=== PATIENT | female | born 1970 | race Caucasian/White ===

== ENCOUNTER → 2018-01-31 08:53 | Outpatient (CLI) | payer MEDICARE, MEDICAID, SELFPAY ==
[2018-01-31 10:39] LABS: Hematocrit 42.9 % (37-47); Hemoglobin 14.7 g/dl (12.0-15.0); Mean Corp Hgb Conc 34.3 g/gl (32-36); Mean Corpuscular Hgb 32.5 pg (27.0-32.0); Mean Corpuscular Volume 94.9 fL (81-99); Platelet Count 166 K/mm3 (150-450); RBC Distribution Width CV 12.4 % (11.6-14.6); RBC Distribution Width SD 42.5 fl (35.1-43.9); Red Blood Count 4.52 M/mm3 (4.2-5.4); White Blood Count 4.7 K/mm3 (4.4-11.0)
[2018-01-31 10:53] LABS: Scan Indicated on CBC? Y/N NO
[2018-01-31 11:25] LABS: ALB/GLOB Ratio 0.6 RATIO (0.9-2.4); AST(SGOT) 14 U/L (15-37); Alanine Aminotransfer ALT/SGPT 13 U/L (13-56); Albumin, Serum 2.7 g/dL (3.2-5.0); Alkaline Phosphatase 52 U/L (45-117); Anion Gap 5 (5-15); BUN 14 mg/dL (7-18); BUN/Creat Ratio 17.1 RATIO (10-20); Calcium,Total 9.3 mg/dL (8.5-10.1); Chloride 97 mmol/L (98-107); Creatinine, Serum 0.82 mg/dL (0.55-1.02); EST Glomerular Filtration Rate 79 mL/min (>60); Est Glom Filt Rate - Afr Amer 96 mL/min (>60); Globulin 4.2 g/dL (2.2-4.2); Glucose 67 mg/dL (74-106); Potassium 4.6 mmol/L (3.5-5.1); Protein, Total 6.9 g/dL (6.4-8.2); Sodium Level 134 mmol/L (136-145)
[2018-01-31 11:27] LABS: Valproic Acid (Depakene) Level 81 ug/mL (50-100)
[2018-02-02 20:08] LABS: KEPPRA (LEVETIRACETAM) 9.6 ug/mL (10.0-40.0)
[2018-02-03 08:17] LABS: Lamotrigine (Lamictal) Level 14.9 ug/mL (2.0-20.0)
== END ==
PROVIDERS: Family Provider Internal Medicine; PCP Internal Medicine; Visit Provider Psychiatry & Neurology Neurology
DX: R45.1 Restlessness and agitation (principal); G40.919 Epilepsy, unspecified, intractable, without status epilepticus; R25.1 Tremor, unspecified; R27.0 Ataxia, unspecified
CPT/HCPCS: 36415; 80053; 80164; 80177; 82542; 85027

== ENCOUNTER 2018-04-20 11:06 | Emergency (ER) | payer MEDICARE, MEDICAID, SELFPAY ==
[2018-04-20 11:07] VITALS: BP 115/98; PULSE 77; RESP 16; TEMP 36.7; O2SAT 98; BMI 31.4
--- NOTE | 2018-04-20 11:22 | CT_ITS ---
STUDY: CT BRAIN WITHOUT CONTRAST REASON FOR EXAM: Female, 47 years old. Altered mental status with increasing confusion RADIATION DOSAGE (If Supplied By Facility): CTDIvol = ( 44.99 ) mGy, DLP = ( 779.24 ) mGycm TECHNIQUE: Transaxial CT imaging of the brain was performed without administration of intravenous contrast material. Individualized dose optimization techniques were used for this CT. COMPARISON: 09/23/2017 FINDINGS: Normal soft tissue structures. Normal calvarium. Normal size ventricles and extra-axial spaces for the patient's age. Normal white matter tracts of the cerebral hemispheres. Normal basal ganglia and thalami. Normal brainstem. Normal cerebellum. Again noted is a 5 mm rounded hyperdensity consistent with a colloid cyst seen in the superior aspect of the third ventricle. There is no intracranial hemorrhage. There are no findings of an acute ischemic infarction. Normal visualized paranasal sinuses. CT/Brain/Head without Contrast IMPRESSION: No acute intracranial pathology. 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 Electronically Signed: Jose Polanco DO at 12:13 EDT Tel , Service support ,
--- NOTE | 2018-04-20 11:25 | RAD_ITS ---
STUDY: X-RAY CHEST REASON FOR EXAM: Female, 47 years old. Shortness of breath/dyspnea. TECHNIQUE: Single AP portable view of the chest. COMPARISON: Comparison is made with prior study August 27, 2014. FINDINGS: The lungs are clear and expanded. There is no demonstrated pleural abnormality. Normal size heart. Normal mediastinum and noah. Normal visualized pulmonary arteries. Normal visualized aortic arch and descending thoracic aorta. Normal visualized thoracic spine. Normal visualized ribs, clavicles, and shoulders. There is no demonstrated abnormality of the visualized soft tissue structures of the upper abdomen. RAD/Chest 1 View (Portable) IMPRESSION: Normal x-ray examination of the chest. Electronically Signed: Nacho Tang MD at 12:27 EDT Tel [phone], Service support ,
--- NOTE | 2018-04-20 11:26 | ED.DCSUM_ITS ---
- ER Visit Summary Date of Service: 04/20/18 Chief Complaint: Confusion History of Present Illness: The patient is a 47 F presenting with confusion. [facility] [place] She has a history of mild MR, seizure disorder, bipolar disorder, dementia. Per [facility]itentiary staff she has been confused intermittently over the past week. She has been talking to people who are not there. She has been forgetting if she took her medications or if she ate. Her seizure medication was changed in November per Dr. Lopez her neurologist. Her Keppra was decreased and her Depakote was increased. They were advised to have her evaluated if she started having visual hallucinations. No known trauma. No fever. Patient denies complaints. Physical Examination: Vitals are stable. Patient is afebrile. Alert no acute distress. HEENT exam is unremarkable. Neck is supple. Lungs are clear and equal bilaterally. Heart is regular rate and rhythm. Abdomen is soft nontender nondistended. Extremities are unremarkable. Skin is warm and dry. No focal neurologic deficit. Normal strength and sensation. Alert and oriented at baseline. Remainder of exam is unremarkable. Emergency Department Course and Treatment: CBC is normal except for platelets 142. Chemistry normal except for sodium 131 which is near her baseline, glucose 72. She is tolerated po in the ED. Troponin is negative. Depakote level is 102. Chest x-ray shows no acute process. CT head shows no acute process. Urinalysis unremarkable. She is given her home dose of Ativan in the emergency department. She is resting comfortably. Her caregiver feels she is at her baseline. Discussed with Dr. Lopez her neurologist. He recommends no medication changes at this time but will follow-up in the office. She is advised to return to ED for worsening complaints. Disposition: Discharge home Impression: Intermittent confusion This note was generated with Page365 dictation software. It may contain incorrect words, spelling, and punctuation that were not noted in review of the chart prior to signing ED Disposition - Plan for ED Patient: Chief Complaint: Confusion Referrals: Kym Heard MD [Primary Care Provider] -
[2018-04-20 12:00] LABS: Absolute Lymphocyte Count 1.12 X10^3/ul (0.83-4.51); Absolute Neutrophil Count 3.3 X10^3/uL (2.0-7.7); Basophil# 0.01 X10^3/uL; Basophil% 0.2 % (0-1); Eosinophil# 0.09 X10^3/uL; Eosinophils% 1.7 % (0-5); Hematocrit 39.6 % (37-47); Hemoglobin 14.2 g/dl (12.0-15.0); Lymphocyte # 1.12 X10^3/ul (4.0); Lymphocyte % 21.7 % (19-41); Mean Corp Hgb Conc 35.9 g/gl (32-36); Mean Corpuscular Hgb 33.2 pg (27.0-32.0); Mean Corpuscular Volume 92.5 fL (81-99); Mean Platelet Vol. 8.9 fl (6.2-12.0); Monocyte# 0.59 X10^3/uL; Monocyte% 11.4 % (0-10); Neutrophil # 3.33 X10^3/uL (2.7-7.7); Neutrophil % 64.6 % (47-70); POSITIVE COUNT NO; POSITIVE DIFFERENTIAL NO; POSITIVE MORPHOLOGY NO; Platelet Count 142 K/mm3 (150-450); RBC Distribution Width CV 11.5 % (11.6-14.6); RBC Distribution Width SD 38.3 fl (35.1-43.9); Red Blood Count 4.28 M/mm3 (4.2-5.4); White Blood Count 5.2 K/mm3 (4.4-11.0)
[2018-04-20 12:15] LABS: Anion Gap 10 (5-15); BUN 13 mg/dL (7-18); BUN/Creat Ratio 16.5 RATIO (10-20); Calcium,Total 9.1 mg/dL (8.5-10.1); Chloride 94 mmol/L (98-107); Creatinine, Serum 0.79 mg/dL (0.55-1.02); EST Glomerular Filtration Rate 83 mL/min (>60); Est Glom Filt Rate - Afr Amer 100 mL/min (>60); Estimated Creatinine Clearance 81.53 ml/min; Glucose 72 mg/dL (74-106); Potassium 4.6 mmol/L (3.5-5.1); Sodium Level 131 mmol/L (136-145)
[2018-04-20 12:29] LABS: Valproic Acid (Depakene) Level 102 ug/mL (50-100)
[2018-04-20 12:52] LABS: Bacteria 0 SEEN /hpf (None Seen); Color, Urine Yellow (Yellow); Glucose, Dipstick Normal (Normal); Ketone-Dipstick Negative (Negative); Leukocyte Esterase-Dipstick 25 /ul (Negative); Mucous, Urine 0 SEEN /hpf (<or=2+); Nitrite-Dipstick Negative (Negative); Occult Blood-Urine 250 /ul (Negative); Protein-Dipstick Negative (Negative); Urine Bilirubin Dipstick Negative (Negative); Urine Clarity Clear (Clear); Urine Urobilinogen Normal (Normal); White Blood Cells 0 SEEN /hpf (0-5)
[2018-04-20] MEDS: LORazepam 0.5 MG Tablet 1 MG PO (12:54)
[2018-04-20 13:00] LABS: Red Blood Cells-Urine 10-25 SEEN /hpf (0-5); Squamous Epithelial Cells - UA 0-5 SEEN /hpf (5-10)
--- NOTE | 2018-04-20 14:19 | ED.DEP ---
ED Disposition - Plan for ED Patient: Chief Complaint: Confusion Instructions: ED Confusion Referrals: Kym Heard MD [Primary Care Provider] - Rico Lopez MD [STAFF PHYSICIAN] -
[2018-04-20 14:35] VITALS: BP 158/74; PULSE 76; RESP 14; O2SAT 99
== END 2018-04-20 14:36 | disposition home or self-care (01) ==
LOC: ED 11:44
PROVIDERS: Emergency Provider Emergency Medicine; Family Provider Internal Medicine; PCP Internal Medicine
DX: R41.0 Disorientation, unspecified (principal); F70 Mild intellectual disabilities; G40.909 Epilepsy, unspecified, not intractable, without status epilepticus; F31.9 Bipolar disorder, unspecified; F03.90 Unspecified dementia, unspecified severity, without behavioral disturbance, psychotic disturbance, mood disturbance, and anxiety; K21.9 Gastro-esophageal reflux disease without esophagitis; Z79.899 Other long term (current) drug therapy
CPT/HCPCS: 70450; 71045; 80048; 80164; 81001; 84484; 85025; 99285; A4216

== ENCOUNTER 2018-05-17 12:34 | Emergency (ER) | payer MEDICARE, MEDICAID, SELFPAY ==
[2018-05-17 12:35] VITALS: BP 141/65; PULSE 82; RESP 19; O2SAT 100
[2018-05-17 12:36] VITALS: BP 141/65; PULSE 82; RESP 19; TEMP 36.1; O2SAT 100; BMI 34.7
--- NOTE | 2018-05-17 12:54 | CT_ITS ---
STUDY: CT BRAIN WITHOUT CONTRAST REASON FOR EXAM: Female, 47 years old. Swelling of the right forehead following a fall. RADIATION DOSAGE (If Supplied By Facility): CTDIvol = ( 44.99 ) mGy, DLP = ( 779.24 ) mGycm TECHNIQUE: Transaxial CT imaging of the brain was performed without administration of intravenous contrast material. Individualized dose optimization techniques were used for this CT. COMPARISON: Comparison is made with prior study dated April 20, 2018. FINDINGS: Normal soft tissue structures. There is hyperostosis frontalis internus. There is asymmetry of the ventricles consistent with an anatomic variant. Normal white matter tracts of the cerebral hemispheres. Normal basal ganglia and thalami. Normal brainstem. Normal cerebellum. Stable 5 mm rounded hyperdensity in the roof of the third ventricle anteriorly suggestive of a colloid cyst. This is unchanged. There is no intracranial hemorrhage. There are no findings of an acute ischemic infarction. Normal visualized paranasal sinuses. CT/Brain/Head without Contrast IMPRESSION: Chronic involutional changes of the brain. Stable appearance of the 5 mm colloid cyst in the superior aspect of the third ventricle anteriorly. Electronically Signed: Nacho Tang MD at 13:47 EDT Tel [phone], Service support ,
--- NOTE | 2018-05-17 12:54 | RAD_ITS ---
STUDY: X-RAY - RIGHT HAND REASON FOR EXAM: Female, 47 years old. Pain. Soft tissue swelling. TECHNIQUE: 3 view(s) of the hand. COMPARISON: None. FINDINGS: Normal radiocarpal articulation. Normal distal radioulnar joint. Normal visualized carpal bones. Normal carpal articulations Normal carpometacarpal articulation of the thumb. Normal second through fifth carpometacarpal joints. Nondisplaced oblique fracture at the base of the fourth metacarpal. Normal metacarpophalangeal joint of the thumb. Normal interphalangeal joint of the thumb. Normal proximal and distal phalanges of the thumb. Normal metacarpophalangeal joints of the second through fifth fingers. Normal proximal and distal interphalangeal joints of the second through fifth fingers. Normal phalanges of the second through fifth fingers. Soft tissue swelling. RAD/Hand Min 3 Views IMPRESSION: Nondisplaced oblique fracture at the base of the fourth metacarpal with overlying soft tissue swelling. Electronically Signed: Nacho Tang MD at 13:29 EDT Tel [phone], Service support ,
--- NOTE | 2018-05-17 15:07 | ED.DCSUM_ITS ---
- ER Visit Summary Date of Service: 05/17/18 Chief Complaint: Fall History of Present Illness: The patient is a 47 F with a history of MRDD and bipolar disorder. Patient was at workshop today when she tripped over another person's foot and fell. She has a hematoma to her right eyebrow and is complaining of right hand pain. She reportedly did not lose consciousness. She has otherwise been acting her normal self per staff members. Physical Examination: Vital signs are gross unremarkable. Head and neck examination was a 3 cm diameter hematoma along the right lateral eyebrow. No open lacerations are noted. There is no bony tenderness along the orbital ridge. Pupils are equal. Extraocular movements are intact. C-spine is nontender. Heart is regular rate and rhythm. Lung sounds are clear. Abdomen is soft nontender. Right upper extremity examination reveals mild tenderness throughout the right hand without obvious bony deformity. Normal sensation and cap refill is noted. Test Results: CT scan of the head shows chronic involutional changes. Stable colloid cyst is noted. Right hand x-rays reveal nondisplaced oblique fracture at the base of the fourth metacarpal. Emergency Department Course and Treatment: Test results were discussed with patient and staff member at bedside. Right hand is placed in an ulnar gutter splint. She will follow-up with orthopedics. Treatment Plan: [] Disposition: Discharge Impression: 1. Mechanical fall 2. Forehead contusion 3. Right hand fracture This note was generated with [employer] dictation software. It may contain incorrect words, spelling, and punctuation that were not noted in review of the chart prior to signing ED Disposition - Plan for ED Patient: Chief Complaint: Fall Referrals: Kym Heard MD [Primary Care Provider] -
--- NOTE | 2018-05-17 15:07 | ED.DEP ---
ED Disposition - Plan for ED Patient: Disposition: Home or Assisted Living Chief Complaint: Fall Instructions: ED Mechanical Fall, ED Head Injury Closed, ED Fx Hand Closed Referrals: Cruzito Shane MD [STAFF PHYSICIAN] - 5-7 Days
[2018-05-17 15:19] VITALS: BP 140/85; PULSE 77; RESP 16; O2SAT 98
== END 2018-05-17 15:19 | disposition home or self-care (01) ==
PROVIDERS: Emergency Provider Emergency Medicine; Family Provider Internal Medicine; PCP Internal Medicine
DX: S00.83XA Contusion of other part of head, initial encounter (principal); S62.91XA Unspecified fracture of right hand, initial encounter for closed fracture; W18.09XA Striking against other object with subsequent fall, initial encounter; Y93.89 Activity, other specified; Y92.89 Other specified places as the place of occurrence of the external cause; Y99.9 Unspecified external cause status; F31.9 Bipolar disorder, unspecified; F79 Unspecified intellectual disabilities; Z87.891 Personal history of nicotine dependence
CPT/HCPCS: 29125; 70450; 73130; 99281

== ENCOUNTER → 2018-08-01 08:27 | Outpatient (CLI) | payer MEDICARE, MEDICAID, SELFPAY ==
[2018-08-01 09:40] LABS: Valproic Acid (Depakene) Level 73 ug/mL (50-100)
[2018-08-03 20:08] LABS: KEPPRA (LEVETIRACETAM) 11.3 ug/mL (10.0-40.0)
[2018-08-04 08:55] LABS: Lamotrigine (Lamictal) Level 12.1 ug/mL (2.0-20.0)
== END ==
PROVIDERS: Family Provider Internal Medicine; PCP Internal Medicine; Visit Provider Psychiatry & Neurology Neurology
DX: G40.919 Epilepsy, unspecified, intractable, without status epilepticus (principal)
CPT/HCPCS: 36415; 80164; 80177; 82542

== ENCOUNTER → 2018-08-30 07:53 | Outpatient (CLI) | payer MEDICARE, MEDICAID, SELFPAY ==
[2018-08-30 11:09] LABS: Valproic Acid (Depakene) Level 68 ug/mL (50-100)
== END ==
PROVIDERS: Family Provider Internal Medicine; PCP Internal Medicine; Referring Provider Psychiatry & Neurology Neurology; Visit Provider Psychiatry & Neurology Neurology
DX: G40.919 Epilepsy, unspecified, intractable, without status epilepticus (principal)
CPT/HCPCS: 36415; 80164; 80177; 82542

== ENCOUNTER 2018-11-22 15:18 | Emergency (ER) | payer MEDICARE, MEDICAID, SELFPAY ==
[2018-11-22 15:19] VITALS: BP 132/66; PULSE 74; RESP 16; TEMP 36.4; O2SAT 99; BMI 30.7
--- NOTE | 2018-11-22 15:20 | RAD_ITS ---
STUDY: X-RAY - RIGHT ELBOW REASON FOR EXAM: Female, 48 years old. Pain following a fall. TECHNIQUE: 3 view(s) of the elbow. COMPARISON: None. FINDINGS: Normal visualized humerus, radius and ulna. Normal radiocapitellar and ulnotrochlear articulations. The soft tissue structures are unremarkable. RAD/Elbow min 3 Views IMPRESSION: Normal x-ray examination of the elbow. Electronically Signed: Nacho Tang MD at 15:47 EST Tel [phone], Service support ,
--- NOTE | 2018-11-22 15:21 | RAD_ITS ---
STUDY: X-RAY - RIGHT WRIST REASON FOR EXAM: Female, 48 years old. Pain following a fall. TECHNIQUE: 3 view(s) of the wrist were obtained. COMPARISON: None. FINDINGS: Normal visualized distal radius and ulna. Normal radiocarpal articulation. Normal distal radioulnar articulation. Normal carpal bones. Normal carpal articulations. Normal carpometacarpal articulation of the thumb. Normal second through fifth carpometacarpal articulations. Nondisplaced fracture at the base of the fourth metacarpal. There is evidence of healing. The soft tissue structures are unremarkable. RAD/Wrist min 3 Views IMPRESSION: No acute abnormality is seen. Healing fracture at the base of the fourth metacarpal. Electronically Signed: Nacho Tang MD at 15:48 EST Tel [phone], Service support ,
--- NOTE | 2018-11-22 15:21 | RAD_ITS ---
STUDY: X-RAY - RIGHT RADIUS AND ULNA REASON FOR EXAM: Female, 48 years old. Pain following a fall. TECHNIQUE: 2 view(s) of the forearm. COMPARISON: None. FINDINGS: There is no demonstrated soft tissue swelling. Normal visualized radius. Normal visualized ulna. RAD/Forearm 2 Views IMPRESSION: Normal x-ray examination of the radius and ulna. Electronically Signed: Nacho Tang MD at 15:47 EST Tel [phone], Service support ,
--- NOTE | 2018-11-22 16:09 | ED.DCSUM_ITS ---
- ER Visit Summary Date of Service: 11/22/18 Chief Complaint: Right arm injury History of Present Illness: The patient is a 48 F with a history of MRDD and bipolar disorder. Patient slid off the commode last evening injuring her right forearm. She denies any other injury. She presents to the ED with long-term staff. Physical Examination: Vital signs unremarkable. Patient seen in a hole chair. She is in no acute distress. Head neck examination reveals no sign of trauma. Heart is regular rate and rhythm. No respiratory distress noted. Right upper extremity examination reveals mild soft tissue tenderness throughout the right forearm. There is ecchymosis noted to the proximal forearm. She has full range of motion of all joints. No abrasions or lacerations are noted. She has strong distal pulses. Test Results: Per nursing protocol, right wrist, right forearm, and right elbow x-rays are obtained and reveal no acute fracture. There is a healing fracture of the base of the fourth metacarpal from prior injury. Emergency Department Course and Treatment: Test results are discussed with patient and long-term staff member. Wilberto wrap was applied to the forearm. She be treated with ibuprofen. Treatment Plan: [] Disposition: Discharge Impression: Right forearm contusion This note was generated with Ke[employer]on dictation software. It may contain incorrect words, spelling, and punctuation that were not noted in review of the chart prior to signing ED Disposition - Plan for ED Patient: Chief Complaint: Upper Extremity Injury Referrals: Kym Heard MD [Primary Care Provider] -
--- NOTE | 2018-11-22 16:09 | ED.DEP ---
ED Disposition - Plan for ED Patient: Disposition: Home or Assisted Living Chief Complaint: Upper Extremity Injury Instructions: ED Contusion Upper Ext Prescriptions: Ibuprofen [Ibu] 800 mg PO TID PRN PRN #14 tablet PRN Reason: Pain Referrals: Kym Heard MD [Primary Care Provider] - 1 Week if not improving
[2018-11-22 16:46] VITALS: PULSE 78; PULSE 99; RESP 14; RESP 17; O2SAT 99
[2018-11-22] MEDS: Ibuprofen 600 MG Tablet 800 MG PO (16:59)
== END 2018-11-22 17:02 | disposition home or self-care (01) ==
PROVIDERS: Emergency Provider Emergency Medicine; Family Provider Internal Medicine; PCP Internal Medicine
DX: S50.11XA Contusion of right forearm, initial encounter (principal); W18.11XA Fall from or off toilet without subsequent striking against object, initial encounter; Y93.9 Activity, unspecified; Y92.192 Bathroom in other specified residential institution as the place of occurrence of the external cause; Y99.9 Unspecified external cause status; F31.9 Bipolar disorder, unspecified; F79 Unspecified intellectual disabilities; Z87.891 Personal history of nicotine dependence
CPT/HCPCS: 73080; 73090; 73110; 99283

== ENCOUNTER 2018-12-04 09:44 | Emergency (ER) | payer MEDICARE, MEDICAID, SELFPAY ==
[2018-12-04 09:46] VITALS: BP 101/65; PULSE 74; RESP 16; TEMP 36.6; O2SAT 93; BMI 36.6
[2018-12-04 10:33] LABS: Absolute Lymphocyte Count 0.92 X10^3/ul (0.83-4.51); Absolute Neutrophil Count 2.6 X10^3/uL (2.0-7.7); Basophil# 0.01 X10^3/uL; Basophil% 0.2 % (0-1); Eosinophil# 0.15 X10^3/uL; Eosinophils% 3.4 % (0-5); Hematocrit 42.8 % (37-47); Hemoglobin 14.8 g/dl (12.0-15.0); Lymphocyte # 0.92 X10^3/ul (4.0); Lymphocyte % 20.7 % (19-41); Mean Corp Hgb Conc 34.6 g/gl (32-36); Mean Corpuscular Hgb 32.4 pg (27.0-32.0); Mean Corpuscular Volume 93.7 fL (81-99); Mean Platelet Vol. 8.9 fl (6.2-12.0); Monocyte% 15.7 % (0-10); Neutrophil # 2.64 X10^3/uL (2.7-7.7); Neutrophil % 59.3 % (47-70); Platelet Count 123 K/mm3 (150-450); RBC Distribution Width CV 12.5 % (11.6-14.6); RBC Distribution Width SD 42.1 fl (35.1-43.9); Red Blood Count 4.57 M/mm3 (4.2-5.4); White Blood Count 4.5 K/mm3 (4.4-11.0)
[2018-12-04 10:34] LABS: POSITIVE COUNT NO; POSITIVE DIFFERENTIAL NO; POSITIVE MORPHOLOGY NO
[2018-12-04 10:47] LABS: Anion Gap 7 (5-15); BUN 11 mg/dL (7-18); BUN/Creat Ratio 11.4 RATIO (10-20); Calcium,Total 8.7 mg/dL (8.5-10.1); Chloride 94 mmol/L (98-107); Creatinine, Serum 0.96 mg/dL (0.55-1.02); EST Glomerular Filtration Rate 65 mL/min (>60); Est Glom Filt Rate - Afr Amer 79 mL/min (>60); Estimated Creatinine Clearance 63.79 ml/min; Glucose 95 mg/dL (74-106); Potassium 4.4 mmol/L (3.5-5.1); Sodium Level 129 mmol/L (136-145)
[2018-12-04 10:57] VITALS: RESP 16
[2018-12-04 11:01] VITALS: RESP 16
--- NOTE | 2018-12-04 11:03 | ED.VISSUMM ---
- ER Visit Summary Date of Service: 12/04/18 Chief Complaint: Difficulty standing History of Present Illness: The patient is a [address] Heard and Dr. Lopez. Patient has a history of complex seizures and MR/DD. She was at [facility] this morning. Usually she is able to walk with assistance although they report that her gait is not great. Today if they start her from a wheelchair and she was unable to walk due to weakness. She was lowered to the ground 3 times. She did not fall. No injuries. Nurse reports they brought her into her office and that she seemed unsteady, had increased slurred speech, and was twitching. She had her Keppra increased 2 months ago and Depakote was increased 2 months ago as well. I am unable to obtain any useful history from the patient. Physical Examination: Vitals: Stable. Afebrile. General: Well-nourished and well-developed. Head: Normocephalic atraumatic. Neck: Supple, no lymphadenopathy. No JVD. Nontender. Cardiovascular: Regular rate and rhythm. No murmurs. Respiratory: No respiratory distress. Clear to auscultation bilaterally. Abdominal: Soft, nontender, nondistended, normal bowel sounds. No guarding, rebound, or peritoneal signs. Back: Nontender. Extremities: Nontender, no edema. Skin: Normal color, no rash. Neurologic: Alert. Moves all extremities well. Psych: Normal affect. Test Results: CBC is remarkable for platelets of 123 and monocytes of 16. Chem-7 is more for sodium 129 chloride of 94. Depakote level is 112. Emergency Department Course and Treatment: Patient is resting comfortably and in no distress. Treatment Plan: The patient was discussed with Dr. Lopez. He asked that we decrease her Depakote from 625 mg 4 times a day to 500 mg 4 times a day. She has an appointment to see him in a week. They are instructed to keep this. Follow-up Dr. Heard in 1-2 days if not improving. Return to the emergency department for any worsening symptoms. Disposition: To home in improved and stable condition. Impression: 1. Depakote toxicity. This note was generated with [employer] software. It may contain incorrect words, spelling, and punctuation that were not noted in review of the chart prior to signing ED Disposition - Plan for ED Patient: Disposition: Home or Assisted Living Chief Complaint: Overdose Instructions: ED Overdose Accidental Referrals: Rico Lopez MD [STAFF PHYSICIAN] - 1-2 Weeks Additional Instructions: Decrease depakote to 500 mg four times a day.
[2018-12-04 11:12] LABS: Valproic Acid (Depakene) Level 112 ug/mL (50-100)
[2018-12-04 12:11] VITALS: RESP 16
[2018-12-04 12:19] LABS: Mucous, Urine 0 SEEN /hpf (<or=2+)
[2018-12-04 12:29] LABS: Color, Urine Yellow (Yellow); Glucose, Dipstick Normal (Normal); Ketone-Dipstick 5 mg/dl (Negative); Leukocyte Esterase-Dipstick 100 /ul (Negative); Nitrite-Dipstick Negative (Negative); Occult Blood-Urine Negative /ul (Negative); Protein-Dipstick Negative (Negative); Urine Bilirubin Dipstick Negative (Negative); Urine Clarity Sl. Cloudy (Clear); Urine Urobilinogen 1 mg/dl (Normal)
[2018-12-04 12:43] LABS: Bacteria RARE /hpf (None Seen); Red Blood Cells-Urine 0-5 SEEN /hpf (0-5); Squamous Epithelial Cells - UA 0-5 SEEN /hpf (5-10); White Blood Cells 0-5 SEEN /hpf (0-5)
--- NOTE | 2018-12-04 12:56 | NURSING ---
PAGED DR HOUGH FOR DR HUMPHRIES
[2018-12-04 13:06] VITALS: RESP 16
--- NOTE | 2018-12-04 13:38 | ED.RN ---
DR HOUGH PAGED AGAIN.
== END 2018-12-04 14:11 | disposition home or self-care (01) ==
PROVIDERS: Emergency Provider Emergency Medicine; Family Provider Internal Medicine; PCP Internal Medicine
DX: R47.81 Slurred speech (principal); T42.6X5A Adverse effect of other antiepileptic and sedative-hypnotic drugs, initial encounter; Y92.199 Unspecified place in other specified residential institution as the place of occurrence of the external cause; K21.9 Gastro-esophageal reflux disease without esophagitis; G40.209 Localization-related (focal) (partial) symptomatic epilepsy and epileptic syndromes with complex partial seizures, not intractable, without status epilepticus; F79 Unspecified intellectual disabilities
CPT/HCPCS: 80048; 80164; 81001; 85025; 99285; A4216

== ENCOUNTER → 2018-12-18 08:27 | Outpatient (CLI) | payer MEDICARE, MEDICAID, SELFPAY ==
[2018-12-04 09:46] VITALS: BMI 36.6
[2018-12-18 11:37] LABS: Valproic Acid (Depakene) Level 64 ug/mL (50-100)
[2018-12-21 11:10] LABS: KEPPRA (LEVETIRACETAM) 6.8 ug/mL (10.0-40.0); Lamotrigine (Lamictal) Level 14.4 ug/mL (2.0-20.0)
== END ==
PROVIDERS: Family Provider Internal Medicine; PCP Internal Medicine; Referring Provider Psychiatry & Neurology Neurology; Visit Provider Psychiatry & Neurology Neurology
DX: G40.919 Epilepsy, unspecified, intractable, without status epilepticus (principal); R27.0 Ataxia, unspecified
CPT/HCPCS: 36415; 80164; 80177; 82542

== ENCOUNTER → 2019-01-12 08:26 | Outpatient (CLI) | payer MEDICARE, MEDICAID, SELFPAY ==
[2019-01-12 10:19] LABS: Valproic Acid (Depakene) Level 68 ug/mL (50-100)
[2019-01-17 12:24] LABS: Lamotrigine (Lamictal) Level 11.7 ug/mL (2.0-20.0)
== END ==
PROVIDERS: Family Provider Internal Medicine; PCP Internal Medicine
DX: G40.919 Epilepsy, unspecified, intractable, without status epilepticus (principal)
CPT/HCPCS: 36415; 80164; 80177; 82542

== ENCOUNTER → 2019-08-02 08:22 | Outpatient (CLI) | payer MEDICARE, MEDICAID, SELFPAY ==
[2019-08-02 10:43] LABS: Valproic Acid (Depakene) Level 61 ug/mL (50-100)
[2019-08-07 11:10] LABS: KEPPRA (LEVETIRACETAM) 38.8 ug/mL (10.0-40.0); Lamotrigine (Lamictal) Level 12.1 ug/mL (2.0-20.0)
== END ==
PROVIDERS: Family Provider Internal Medicine; PCP Internal Medicine
DX: G40.919 Epilepsy, unspecified, intractable, without status epilepticus (principal)
CPT/HCPCS: 36415; 80164; 80177; 82542

== ENCOUNTER 2019-08-03 19:22 | Emergency (ER) | payer MEDICARE, MEDICAID, SELFPAY ==
[2019-08-03 19:22] VITALS: BP 166/102; PULSE 80; RESP 16; TEMP 36.8; O2SAT 96; BMI 28.9
--- NOTE | 2019-08-03 19:31 | RAD_ITS ---
STUDY: X-RAY - LEFT HUMERUS REASON FOR EXAM: Female, 49 years old. Fall. TECHNIQUE: 2 view(s) of the humerus. COMPARISON: None. FINDINGS: Normal visualized humerus. There is no demonstrated fracture or osseous destructive process. There is no demonstrated soft tissue abnormality. RAD/Humerus min 2 Views IMPRESSION: Normal x-ray examination of the humerus. Electronically Signed: Cathie Eller MD at 21:19 EDT Tel , Service support ,
--- NOTE | 2019-08-03 19:31 | RAD_ITS ---
STUDY: X-RAY - LEFT ANKLE REASON FOR EXAM: Female, 49 years old. Fall. TECHNIQUE: 3 view(s) of the ankle. COMPARISON: None. FINDINGS: Normal visualized distal tibia and fibula. Normal medial and lateral malleoli. Normal tibiotalar articulation and ankle mortise. Normal visualized talus and calcaneus. There are postsurgical changes within the midfoot. The soft tissue structures are unremarkable. RAD/Ankle min 3 Views IMPRESSION: No acute osseous injury. Electronically Signed: Cathie Eller MD at 20:31 EDT Tel , Service support ,
--- NOTE | 2019-08-03 19:31 | RAD_ITS ---
STUDY: X-RAY - PELVIS REASON FOR EXAM: Female, 49 years old. Fall yesterday. TECHNIQUE: One view of the pelvis was obtained. COMPARISON: None. FINDINGS: There is a non-specific bowel gas pattern. Normal visualized soft tissue structures. Normal bilateral iliac wings, sacroiliac joints and visualized sacrum. Normal visualized bilateral superior and inferior pubic rami. Normal pubic symphysis. Normal ischial tuberosities. Normal visualized right femoral head. Normal right acetabulum. Normal right hip joint. Normal visualized left femoral head. Normal left acetabulum. Normal left hip joint. RAD/Pelvis 1 or 2 Views IMPRESSION: No acute osseous injury. Electronically Signed: Cathie Eller MD at 20:37 EDT Tel , Service support ,
--- NOTE | 2019-08-03 19:31 | RAD_ITS ---
STUDY: X-RAY CHEST REASON FOR EXAM: Female, 49 years old. Fall yesterday. TECHNIQUE: PA and lateral views of the chest. COMPARISON: April 20, 2018 FINDINGS: There is no new focal consolidation. Normal size heart. Normal mediastinum and noah. Normal visualized pulmonary arteries. Normal visualized aortic arch and descending thoracic aorta. Normal visualized thoracic spine. Normal visualized ribs, clavicles, and shoulders. There is no demonstrated abnormality of the visualized soft tissue structures of the upper abdomen. RAD/Chest PA and Lateral IMPRESSION: No acute cardiopulmonary process. Electronically Signed: Cathie Eller MD at 20:32 EDT Tel , Service support ,
--- NOTE | 2019-08-03 20:22 | ED.DCSUM_ITS ---
- ER Visit Summary Date of Service: 08/03/19 Chief Complaint: Fall [] History of Present Illness: The patient is a 49 F [presents to the emergency department after sustaining a fall this evening in the shower. Patient apparently just dropped to the ground and was found on her left side. Patient has history of frequent seizures that present typically like this. Patient had no loss of consciousness and responded and was alert immediately as staff try to talk to her. She has a history of MR and she is bipolar and has history of seizure disorder. Patient has been compliant with her medications. Patient complained of some pain to her left side although she is a very poor historian has a hard time localizing. She ambulated into the emergency department.] Physical Examination: [HEENT-PERRLA, EOMI. Cranial nerves II through XII grossly intact. TMs clear. Mucous membranes moist. No adenopathy. No external evidence of trauma to her head. Patient has no C-spine tenderness to palpation. Cardiovascular-regular rate and rhythm without murmur or ectopy Lungs-clear to auscultation, chest wall stable without crepitus or subcu emphysema. Patient does have some tenderness palpation over the left chest wall in the midaxillary line. Abdomen-normoactive bowel sounds, soft, nontender, no rebound or rigidity, no peritoneal signs. Back exam-patient has no tenderness over the thoracic or lumbar spine. Extremities-intact ?4, normal range of motion, normal pulses. Left ankle- patient has some ecchymosis noted over the lateral malleolus. There is some tenderness palpation over the area. Minimal soft tissue swelling. She is neuro vascularly intact distally.] Left upper extremity-patient has some diffuse tenderness over the left shoulder and proximal humerus. No obvious deformity or ecchymosis or bruising noted. Test Results: [X-rays of the left ankle obtained showed no fractures. Chest x- ray showed nothing acute. Patient also had x-rays of the left humerus which showed no fractures. Patient also had x-ray of the pelvis which was unr emarkable.] Emergency Department Course and Treatment: [] Treatment Plan: [Advised on using ibuprofen or Tylenol for discomfort. Patient to follow-up with primary care physician in 5 to 7 days.] Disposition: [Discharged to home stable condition.] Impression: [Recurrent seizure Chest wall contusion Left hip contusion Left ankle contusion] This note was generated with [employer] dictation software. It may contain incorrect words, spelling, and punctuation that were not noted in review of the chart prior to signing ED Disposition - Plan for ED Patient: Referrals: Kym Heard MD [Primary Care Provider] -
--- NOTE | 2019-08-03 20:26 | DCINST.ED_ITS ---
ED Disposition - Plan for ED Patient: Instructions: FALL, Mechanical, Chest Wall Contusion, Hip Contusion, CONTUSION, Lower Extremity Referrals: Kym Heard MD [Primary Care Provider] - 5-7 Days
--- NOTE | 2019-08-03 20:26 | ED.DEP ---
ED Disposition - Plan for ED Patient: Instructions: FALL, Mechanical, Chest Wall Contusion, Hip Contusion, CONTUSION, Lower Extremity Referrals: yKm Heard MD [Primary Care Provider] - 5-7 Days
[2019-08-03 20:45] VITALS: BP 158/94; PULSE 82; RESP 16; O2SAT 97
== END 2019-08-03 20:46 | disposition home or self-care (01) ==
LOC: ED 19:53
PROVIDERS: Emergency Provider Emergency Medicine; Family Provider Internal Medicine; PCP Internal Medicine
DX: S20.219A Contusion of unspecified front wall of thorax, initial encounter (principal); S70.02XA Contusion of left hip, initial encounter; S90.02XA Contusion of left ankle, initial encounter; W18.2XXA Fall in (into) shower or empty bathtub, initial encounter; Y93.9 Activity, unspecified; Y92.002 Bathroom of unspecified non-institutional (private) residence as the place of occurrence of the external cause; Y99.9 Unspecified external cause status; G40.909 Epilepsy, unspecified, not intractable, without status epilepticus; F31.9 Bipolar disorder, unspecified; F79 Unspecified intellectual disabilities
CPT/HCPCS: 71046; 72170; 73060; 73610; 99282

== ENCOUNTER 2019-10-03 14:57 | Emergency (ER) | payer MEDICARE, MEDICAID, SELFPAY ==
[2019-10-03 14:58] VITALS: BP 148/89; PULSE 86; RESP 16; TEMP 36.7; O2SAT 97; BMI 32.8
--- NOTE | 2019-10-03 15:48 | CT_ITS ---
STUDY: CT BRAIN WITHOUT CONTRAST REASON FOR EXAM: Female, 49 years old. Fall, headache RADIATION DOSAGE (If Supplied By Facility): CTDIvol = ( 44.99 ) mGy, DLP = ( 779.24 ) mGycm TECHNIQUE: Transaxial CT imaging of the brain was performed without administration of intravenous contrast material. Individualized dose optimization techniques were used for this CT. COMPARISON: 05/17/2018 FINDINGS: Normal soft tissue structures. Normal calvarium. There is mild cerebral atrophy with widening of the extra-axial spaces and ventricular dilatation. Normal white matter tracts of the cerebral hemispheres. Normal basal ganglia and thalami. Normal brainstem. Normal cerebellum. No change in a 5 mm round mass of increased attenuation within the roof of the third ventricle consistent with a proteinaceous colloid cyst. There is no intracranial hemorrhage. There are no findings of an acute ischemic infarction. Normal visualized paranasal sinuses. CT/Brain/Head without Contrast IMPRESSION: Chronic involutional changes of the brain. Electronically Signed: Juancarlos Iqbal MD at 16:18 EST Tel , Service support ,
--- NOTE | 2019-10-03 15:49 | ED.VISSUMM ---
- ER Visit Summary Date of Service: 10/03/19 Chief Complaint: Facial injury History of Present Illness: The patient is a 49 F who fell today at work striking her head on a filing cabinet. No loss of conscious. No vomiting. Laceration to the right eyebrow noted. Staff cannot tell me last tetanus shot. We called her primary care physician's office last given 2009 Physical Examination: Afebrile vital signs stable Gen: Well-nourished well-developed Head: Normocephalic atraumatic Eyes: Perrl EOMI ENT: TMs clear no rhinorrhea moist mucous membranes Neck: Supple no lymphadenopathy no JVD nontender CVS: Regular rate rhythm no murmurs normal S1-S2 Respiratory: No distress clear to auscultation bilaterally chest nontender Abdomen: Soft nontender nondistended normal bowel sounds no masses Back: Nontender Extremity: Nontender no edema Skin: Normal color no rash Neuro: alert GCS 15 II-XII intact normal strength sensation reflexes gait cerebellar Psych: Normal affect normal mood Test Results: CT of the brain was obtained. This was negative for fracture or intracranial hemorrhage. Emergency Department Course and Treatment: Tetanus was updated with Adacel. Let was applied and then we used approximately 2 cc to anesthetize the region. Wound was washed with Shur-Clens and explored. She was able to wrinkle her brow before and after anesthesia. Wound was closed using a total of 3 simple interrupted 4-0 Ethilon sutures. Patient be discharged home stitches need to be removed 5 to 7 days. Impression: 1. 1.5 cm facial laceration with repair 2. Tetanus update This note was generated with [employer] dictation software. It may contain incorrect words, spelling, and punctuation that were not noted in review of the chart prior to signing ED Disposition - Plan for ED Patient: Disposition: Home or Assisted Living Instructions: LACERATION, Face (Suture or Tape) Referrals: Kym Heard MD [Primary Care Provider] - (in 5-7 days for suture removal)
[2019-10-03] MEDS: Lidocaine/Epi/Tetracaine 50 ML 1 APPLIC TOPICAL (15:56)
[2019-10-03] MEDS: Diphth,Pertuss(Acell),Tet Vac 0.5 ML Vial IM (16:19)
[2019-10-03 16:24] VITALS: PULSE 88; O2SAT 96
== END 2019-10-03 16:51 | disposition home or self-care (01) ==
PROVIDERS: Emergency Provider Emergency Medicine; Family Provider Internal Medicine; PCP Internal Medicine
DX: S01.111A Laceration without foreign body of right eyelid and periocular area, initial encounter (principal); S01.81XA Laceration without foreign body of other part of head, initial encounter; W01.190A Fall on same level from slipping, tripping and stumbling with subsequent striking against furniture, initial encounter; Y93.89 Activity, other specified; Y92.89 Other specified places as the place of occurrence of the external cause; Y99.0 Civilian activity done for income or pay; Z23 Encounter for immunization; G40.909 Epilepsy, unspecified, not intractable, without status epilepticus; F31.9 Bipolar disorder, unspecified; F79 Unspecified intellectual disabilities
CPT/HCPCS: 12011; 70450; 90471; 90715; 99283

== ENCOUNTER 2019-11-02 13:13 | Emergency (ER) | payer MEDICARE, MEDICAID, SELFPAY ==
[2019-11-02 13:14] VITALS: BP 161/109; PULSE 86; RESP 18; TEMP 37; O2SAT 96; BMI 30.9
--- NOTE | 2019-11-02 14:24 | CT_ITS ---
STUDY: CT BRAIN WITHOUT CONTRAST REASON FOR EXAM: Female, 49 years old. Confusion and weakness. Change in mental status. RADIATION DOSAGE (If Supplied By Facility): CTDIvol = ( 44.99 ) mGy, DLP = ( 812.98 ) mGycm TECHNIQUE: Transaxial CT imaging of the brain was performed without administration of intravenous contrast material. Individualized dose optimization techniques were used for this CT. COMPARISON: Comparison is made with prior examination dated October 03, 2019. FINDINGS: Normal soft tissue structures. There is hyperostosis frontalis internus. There is mild cerebral atrophy with widening of the extra-axial spaces and ventricular dilatation. Normal white matter tracts of the cerebral hemispheres. There are small punctate calcifications of the basal ganglia which are seen in the aging brain as a normal variant. Normal brainstem. Normal cerebellum. Stable 5 mm rounded hyperdensity overlying the roof of the third ventricle anteriorly. This is suggestive of right colloid cyst. There is no intracranial hemorrhage. There are no findings of an acute ischemic infarction. Normal visualized paranasal sinuses. CT/Brain/Head without Contrast IMPRESSION: Stable appearance of the colloid cyst. No acute abnormality is seen. Electronically Signed: Nacho Tang, at 15:18 EST , Service support ,
--- NOTE | 2019-11-02 14:42 | ED.DCSUM_ITS ---
History of Present Illness Chief Complaint: Alt LOC Informant: Patient, - - Caregiver Onset: Days Context: Gradual Onset Narrative: Patient is a 49-year-old female with history of developmental delay, dementia, bipolar disorder, epilepsy and hypertension presenting for evaluation of increased weakness decreased appetite. Patient has a history of falls and unsteady gait. They note that she had an unwitnessed fall on Tuesday, 5 days ago. She developed bruising over her left hip, right hernández and right buttocks. Caregivers noted that she has been a little bit more unsteady than normal. She is also complaining of some intermittent dizziness. Patient did have an MRI on Tuesday but she did require sedation for that. They are not sure somewhat medication still lingering in her system. Today she was eating and drinking less. They note she did not eat pizza which is her favorite food. There is been no report of any fevers, vomiting, diarrhea or urinary symptoms. No other complaints or concerns at this time. Past Medical History - Allergies and Home Meds Allergies/Adverse Reactions: Allergies Penicillins Allergy (Verified 11/02/19 13:18) Unknown Primary Care Physician: Kym Heard MD [Primary Care Provider] - Past Medical History: - - MRDD, dementia, bipolar disorder, epilepsy?on Keppra, hypertension Surgical History: noncontributory Lives: - - intermediate Smoking Status: Never smoker - Family History Maternal Family History: Reports: No pertinent history Review of Systems General: Denies: Chills, Fever, Sweats ENT: Denies: Rhinorrhea, Sore throat Cardiovascular: Denies: Chest pain Respiratory: Denies: Dyspnea, Cough Gastrointestinal: Denies: Abdominal pain, Nausea, Vomiting, Diarrhea, Melena, Hematochezia Genitourinary: Denies: Dysuria, Hematuria, Frequency Musculoskeletal: Reports: Extremity Pain - Left knee. Denies: Back pain Skin: Reports: - - Bruising to lower extremities. Denies: Rash, Wounds Neurological: Reports: - - Unsteady gait?chronic. Denies: Headache, Weakness, Numbness Physical Exam Vital Signs/Narrative: Vital Signs Temp Pulse Resp BP Pulse Ox 11/02/19 13:14 98.6 F 86 18 161/109 H 96 Inital Vital Signs reviewed: Yes General: Well nourished, Well developed, No Acute Distress Head: Normocephalic, Atraumatic. Negative for: Tenderness Eyes: Perrl, EOMI ENT: Moist mucous membranes, No rhinorrhea, TM's clear Neck: Supple, Nontender, - - No meningeal signs Cardiovascular: Regular rate, Regular rhythm, No murmurs Respiratory: No distress, CTA bilaterally, Chest nontender Abdomen: Soft, Nondistended, Normal bowel sounds, Tender - Epigastric region. Negative for: Guarding, Rebound tenderness, Mass Back: Nontender, Normal Inspection. Negative for: CVA tenderness Extremities: Nontender, - - Mild edema around associated joint effusion, normal range of motion. No hip pain with logroll bilaterally Skin: Normal color, No rash, - - Scattered ecchymosis on lower extremities, likely from her recent fall Neurological: Alert, Cranial nerves II-XII grossly intact, Normal Strength, Normal Sensation Psychological: Normal affect, Normal Mood Diagnostic/Tx/Re-eval Clinical Impression(s) from Imaging Studies Brain CT 11/02/19 14:24 IMPRESSION: Stable appearance of the colloid cyst. No acute abnormality is seen. Electronically Signed: Nacho Tang, at 15:18 EST , Service support , Knee X-Ray 11/02/19 15:00 IMPRESSION: Normal x-ray examination of the knee. Electronically Signed: Nacho Tang, at 15:19 EST , Service support , Laboratory Data 11/02/19 11/02/19 11/02/19 14:40 14:40 15:23 WBC 4.2 L RBC 4.81 Hgb 15.1 H Hct 44.2 MCV 91.9 MCH 31.4 MCHC 34.2 RDW Std Deviation 40.1 RDW Coeff of Taylor 11.9 Plt Count 111 L MPV 9.0 Immature Gran % (Auto) 0.500 Neut % (Auto) 61.9 Lymph % (Auto) 27.0 [place] % (Auto) 9.0 Eos % (Auto) 1.4 Baso % (Auto) 0.2 Absolute Neuts (auto) 2.6 Absolute Lymphs (auto) 1.14 Nucleated RBC % 0 Sodium 139 Potassium 3.8 Chloride 100 Carbon Dioxide 35.0 H Anion Gap 4 L BUN 12 Creatinine 0.94 Estim Creat Clear Calc 61.83 Est GFR (MDRD) Af Amer 81 Est GFR (MDRD) Non-Af 67 BUN/Creatinine Ratio 12.7 Glucose 90 Calcium 9.1 Total Bilirubin 0.50 Direct Bilirubin 0.16 AST 26 ALT 17 Alkaline Phosphatase 60 Total Protein 7.0 Albumin 2.8 L Globulin 4.2 Lipase 86 Urine Color Yellow Urine Clarity Clear Urine pH 6.5 Ur Specific [place] 1.015 Urine Protein Negative Urine Glucose (UA) Normal Urine Ketones 5 H Urine Occult Blood Negative Urine Nitrite Negative Urine Bilirubin Negative Urine Urobilinogen 4 H Ur Leukocyte Esterase Negative Urine RBC 0 SEEN Urine WBC 0 SEEN Ur Squamous Epith Cells 0-5 SEEN Urine Bacteria 1+ Urine Mucus 0 SEEN - Medical Decision Making Patient evaluated for generalized weakness and increased frequency of falls. She appears nontoxic in no acute distress. Vital signs are significant for hypertension but otherwise normal. She does have a history of hypertension. She does not have any focal neurologic deficits. Because she has unwitnessed fall and has been more weak head CT is obtained. This did not show any acute intracranial process. Urinalysis does show 5+ ketones but no signs of infection. She might have some mild dehydration which is contributing to her weakness. She does not have any significant bony abnormalities. She is also mild swelling of her left knee and an x-ray is obtained. Does not show any acute fracture. Not suspected joint infection. CBC, CMP and lipase are grossly normal. Patient is given some IV fluids and Tylenol emergency room. I think she is stable for outpatient follow-up with PCP. The caregiver that is now the bedside feels that she is pretty much at her baseline. They are counseled on signs and symptoms requiring return to the emergency room. Caregiver verbalizes agreement understanding this plan. Patient discharged home in stable condition. ED Disposition - Plan for ED Patient: Disposition: Home or Assisted Living Diagnosis: Weakness, Dehydration Instructions: WEAKNESS, Unk Cause Referrals: Kym Heard MD [Primary Care Provider] - Additional Instructions: Follow-up with her primary care doctor next week. Encourage extra fluids over the next few days. Give her Tylenol as she is likely sore from her recent fall. Return to emergency with any worsening symptoms. She is not have any signs of kidney injury or infection at this time.
[2019-11-02 14:48] LABS: Absolute Lymphocyte Count 1.14 X10^3/uL (0.83-4.51); Absolute Neutrophil Count 2.6 X10^3/uL (2.0-7.7); Basophil# 0.01 X10^3/uL; Basophil% 0.2 % (0-1); Eosinophil# 0.06 X10^3/uL; Eosinophils% 1.4 % (0-5); Hematocrit 44.2 % (37-47); Hemoglobin 15.1 g/dL (12.0-15.0); Lymphocyte # 1.14 X10^3/ul (4.0); Mean Corp Hgb Conc 34.2 g/dL (32-36); Mean Corpuscular Hgb 31.4 pg (27.0-32.0); Mean Corpuscular Volume 91.9 fL (81-99); Monocyte# 0.38 X10^3/uL; NRBC Flagged by Analyzer 0 % (0-5); Neutrophil # 2.62 X10^3/uL (2.7-7.7); Neutrophil % 61.9 % (47-70); Platelet Count 111 K/mm3 (150-450); RBC Distribution Width CV 11.9 % (11.6-14.6); RBC Distribution Width SD 40.1 fl (35.1-43.9); Red Blood Count 4.81 M/mm3 (4.2-5.4); White Blood Count 4.2 K/mm3 (4.4-11.0)
--- NOTE | 2019-11-02 15:00 | RAD_ITS ---
STUDY: X-RAY - LEFT KNEE REASON FOR EXAM: Female, 49 years old. Left knee pain. TECHNIQUE: AP and lateral view(s) of the knee. COMPARISON: None. FINDINGS: Normal visualized distal femur. Normal visualized proximal tibia and fibula. Normal proximal tibiofibular articulation. Normal medial femorotibial compartment. Normal lateral femorotibial compartment. Normal patellofemoral articulation. The soft tissue structures are unremarkable. RAD/Knee 1 or 2 Views IMPRESSION: Normal x-ray examination of the knee. Electronically Signed: Nacho Tang, at 15:19 EST , Service support ,
[2019-11-02 15:20] LABS: AST(SGOT) 26 U/L (15-37); Alanine Aminotransfer ALT/SGPT 17 U/L (13-56); Albumin, Serum 2.8 g/dL (3.2-5.0); Alkaline Phosphatase 60 U/L (45-117); Anion Gap 4 (5-15); BUN 12 mg/dL (7-18); BUN/Creat Ratio 12.7 RATIO (10-20); Bilirubin, Direct 0.16 mg/dL (0.00-0.30); Calcium,Total 9.1 mg/dL (8.5-10.1); Chloride 100 mmol/L (98-107); Creatinine, Serum 0.94 mg/dL (0.55-1.02); EST Glomerular Filtration Rate 67 mL/min (>60); Est Glom Filt Rate - Afr Amer 81 mL/min (>60); Estimated Creatinine Clearance 61.83 ml/min; Globulin 4.2 g/dL (2.2-4.2); Glucose 90 mg/dL (74-106); Lipase 86 U/L (73-393); Potassium 3.8 mmol/L (3.5-5.1); Sodium Level 139 mmol/L (136-145)
[2019-11-02 15:27] LABS: Mucous, Urine 0 SEEN /hpf (<or=2+); Red Blood Cells-Urine 0 SEEN /hpf (0-5); White Blood Cells 0 SEEN /hpf (0-5)
[2019-11-02 15:30] LABS: Color, Urine Yellow (Yellow); Glucose, Dipstick Normal (Normal); Ketone-Dipstick 5 mg/dl (Negative); Leukocyte Esterase-Dipstick Negative /ul (Negative); Nitrite-Dipstick Negative (Negative); Occult Blood-Urine Negative /ul (Negative); Protein-Dipstick Negative (Negative); Specific Gravity, Urine 1.015 (1.002-1.030); Urine Bilirubin Dipstick Negative (Negative); Urine Clarity Clear (Clear); Urine Urobilinogen 4 mg/dl (Normal); Urine pH 6.5 (5.0 - 8.0)
[2019-11-02 15:44] LABS: Bacteria 1+ /hpf (None Seen); Squamous Epithelial Cells - UA 0-5 SEEN /hpf (5-10)
[2019-11-02] MEDS: Acetaminophen 500 MG Tablet 1000 MG PO (16:26)
[2019-11-02] MEDS: 0.9% Normal Saline 1,000 ML 999 ML IV (16:28)
[2019-11-02 16:29] VITALS: RESP 18
[2019-11-02 18:20] VITALS: RESP 18
== END 2019-11-02 18:29 | disposition home or self-care (01) ==
PROVIDERS: Emergency Provider Emergency Medicine; Family Provider Internal Medicine; PCP Internal Medicine
DX: R53.1 Weakness (principal); E86.0 Dehydration; G40.909 Epilepsy, unspecified, not intractable, without status epilepticus; I10 Essential (primary) hypertension; F31.9 Bipolar disorder, unspecified; F03.90 Unspecified dementia, unspecified severity, without behavioral disturbance, psychotic disturbance, mood disturbance, and anxiety; Z79.899 Other long term (current) drug therapy
CPT/HCPCS: 70450; 73560; 80048; 80076; 81001; 83690; 85025; 96360; 99285; J7030; A4216

== ENCOUNTER 2019-11-24 15:49 | Emergency (ER) | payer MEDICARE, MEDICAID, SELFPAY ==
[2019-11-24 15:51] VITALS: BP 133/82; PULSE 74; RESP 17; TEMP 36; O2SAT 93; BMI 30.7
--- NOTE | 2019-11-24 16:11 | ED.RN ---
PT HAS NUMEROUS AREAS OF ECCHYMOSIS OF VARYING AGES AND SIZES SCATTERED OVER ENTIRE BODY. NOTABLE AREAS INCLUDE RIGHT CHEEK, RIGHT SHOULDER, LEFT LATERAL CHEN, BOTH ANKLES.
--- NOTE | 2019-11-24 16:13 | ED.RN ---
WHEN ALONE IN ROOM AND ASKED ABOUT INJURIES, PT STATES I FALL A LOT. PT DENIES AND OTHER FORM OF INJURY.
--- NOTE | 2019-11-24 16:18 | ED.RN ---
ATTEMPTED TO CALL LEGAL [employer]IAN PETER HARRIS FOR PERMISSION TO TREAT, NO ANSWER, VOICEMAIL STATES MAILBOX IS FULL, UNABLE TO LEAVE MESSAGE.
--- NOTE | 2019-11-24 16:54 | CT_ITS ---
STUDY: CT BRAIN WITHOUT CONTRAST REASON FOR EXAM: Female, 49 years old. FALL X 3 TODAY. SEIZURE DISORDER RADIATION DOSAGE (If Supplied By Facility): CTDIvol = ( 44.99 ) mGy, DLP = ( 829.85 ) mGycm TECHNIQUE: Transaxial CT imaging of the brain was performed without administration of intravenous contrast material. Individualized dose optimization techniques were used for this CT. COMPARISON: 11/02/2019 FINDINGS: Normal soft tissue structures. There is hyperostosis frontalis internus. Mild prominence of the lateral and third ventricles with small hyperdense lesion in the anterior third ventricle measuring 5 mm, compatible with a small colloid cyst. Normal white matter tracts of the cerebral hemispheres. Normal basal ganglia and thalami. Normal brainstem. Normal cerebellum. There is no intracranial hemorrhage. There are no findings of an acute ischemic infarction. Normal visualized paranasal sinuses. CT/Brain/Head without Contrast IMPRESSION: 1. No acute intracranial hemorrhage or mass effect. 2. Stable intraventricular colloid cyst Electronically Signed: Mayo Kolb MD ([place]) at 17:31 EST , Service support ,
--- NOTE | 2019-11-24 16:59 | ED.VIS.GEN ---
History of Present Illness Chief Complaint: Dizziness Detail of Chief Complaint: Fall Informant: - - [facility] staff member Narrative: Patient brought in by staff member from [facility]. They state that 5 days ago she had a fall and had bruising to her right shoulder and the right side of her face. She did well for the next few days but yesterday went to lay in bed all day. She would get up only to go the bathroom and back. She has seemed more unsteady on her feet. She is not wanting to eat. She has had multiple falls today. They have not noted fever. She has not had significant cough or congestion. She has had no vomiting. - Past Medical History (1) Dementia Status: Chronic (2) Seizures Status: Chronic (3) Hypertension Status: Chronic (4) Bipolar disorder Status: Chronic (5) Mental retardation Status: Chronic Past Medical History - Allergies and Home Meds Allergies/Adverse Reactions: Allergies Penicillins Allergy (Verified 11/24/19 15:50) Unknown Primary Care Physician: Kym Heard MD [Primary Care Provider] - Prior records reviewed: Yes Surgical History: noncontributory Lives: - - [facility]entiary Smoking Status: Never smoker - Family History Maternal Family History: Reports: No pertinent history Review of Systems General: Denies: Chills, Fever ENT: Denies: Bilateral ear pain Cardiovascular: Denies: Chest pain Respiratory: Denies: Dyspnea, Cough Gastrointestinal: Denies: Abdominal pain, Vomiting Musculoskeletal: Denies: Neck pain, Back pain Skin: Reports: - - Ecchymoses Neurological: Denies: Headache Allergy: Denies: Uticaria Physical Exam Vital Signs/Narrative: Vital Signs Temp Pulse Resp BP Pulse Ox 11/24/19 15:51 96.8 F L 74 17 133/82 H 93 Inital Vital Signs reviewed: Yes General: Well nourished, Well developed Head: Normocephalic, - - Old ecchymoses noted to the right maxilla. No bony tenderness. ENT: Moist mucous membranes Neck: Supple Cardiovascular: Regular rate, Regular rhythm Respiratory: No distress, CTA bilaterally Abdomen: Soft, Nontender, Normal bowel sounds Extremities: - - Ecchymosis of the top of the right shoulder. No tenderness of the shoulder joint itself. Neurological: Alert, - - Moves all 4 extremities. Diagnostic/Tx/Re-eval Chest X-Ray - ED: 1 View, Read by ED Physician, Chronic Changes, No Infiltrates Impressions Brain CT 11/24/19 16:54 IMPRESSION: 1. No acute intracranial hemorrhage or mass effect. 2. Stable intraventricular colloid cyst Electronically Signed: Mayo Kolb MD ([place]) at 17:31 EST , Service support , Shoulder X-Ray 11/24/19 17:20 IMPRESSION: No acute osseous injury. Right basilar patchy opacity concerning for underlying atelectasis and/or pneumonia. Electronically Signed: Cathie Eller MD at 18:12 EST Tel , Service support , 11/24/19 16:54 Brain/Head without Contrast [CT] Stat 11/24/19 17:20 Shoulder min 2 Views [RAD] Stat 11/24/19 19:00 Chest 1 View (Portable) [RAD] Stat Laboratory Results 11/24/19 11/24/19 11/24/19 17:05 17:05 17:05 WBC 8.4 RBC 4.36 Hgb 13.6 Hct 40.3 MCV 92.4 MCH 31.2 MCHC 33.7 RDW Std Deviation 41.7 RDW Coeff of [place] 12.3 Plt Count 164 MPV 8.8 Immature Gran % (Auto) 0.500 Neut % (Auto) 77.1 H Lymph % (Auto) 15.9 L [place] % (Auto) 5.7 Eos % (Auto) 0.7 Baso % (Auto) 0.1 Absolute Neuts (auto) 6.5 Absolute Lymphs (auto) 1.34 Nucleated RBC % 0 Sodium 139 Potassium 3.0 L Chloride 97 L Carbon Dioxide 38.0 H Anion Gap 4 L BUN 18 Creatinine 1.04 H Estim Creat Clear Calc 60.58 Est GFR (MDRD) Af Amer 72 Est GFR (MDRD) Non-Af 60 BUN/Creatinine Ratio 17.3 Glucose 86 Calcium 9.1 Urine Color Urine Clarity Urine pH Ur Specific [place] Urine Protein Urine Glucose (UA) Urine Ketones Urine Occult Blood Urine Nitrite Urine Bilirubin Urine Urobilinogen Ur Leukocyte Esterase Urine RBC Urine WBC Ur Squamous Epith Cells Urine Bacteria Urine Mucus Valproic Acid 88 11/24/19 17:45 WBC RBC Hgb Hct MCV MCH MCHC RDW Std Deviation RDW Coeff of [place] Plt Count MPV Immature Gran % (Auto) Neut % (Auto) Lymph % (Auto) [place] % (Auto) Eos % (Auto) Baso % (Auto) Absolute Neuts (auto) Absolute Lymphs (auto) Nucleated RBC % Sodium Potassium Chloride Carbon Dioxide Anion Gap BUN Creatinine Estim Creat Clear Calc Est GFR (MDRD) Af Amer Est GFR (MDRD) Non-Af BUN/Creatinine Ratio Glucose Calcium Urine Color Yellow Urine Clarity Clear Urine pH 6.0 Ur Specific [place] 1.015 Urine Protein 15 H Urine Glucose (UA) Normal Urine Ketones 5 H Urine Occult Blood Negative Urine Nitrite Negative Urine Bilirubin 1 H Urine Urobilinogen 4 H Ur Leukocyte Esterase 25 H Urine RBC 0 SEEN Urine WBC 5-10 SEEN Ur Squamous Epith Cells 0-5 SEEN Urine Bacteria 0 SEEN Urine Mucus 0 SEEN Valproic Acid - Medical Decision Making Test results discussed with staff member at bedside. Patient is given oral potassium replacement. Should be written a prescription for oral potassium. Urine was sent for a culture. They were advised to be contacted if she needs antibiotics for this. At this time patient is tolerating p.o. and is in no distress. ED Disposition - Plan for ED Patient: Disposition: Home or Assisted Living Diagnosis: Fall, Hypokalemia Instructions: Hypokalemia, FALL, Uncertain Cause Prescriptions: Potassium Chloride [K-Dur] 20 meq PO BID #7 tablet Referrals: Kym Heard MD [Primary Care Provider] - 1 Week if not improving
[2019-11-24 17:14] LABS: Absolute Lymphocyte Count 1.34 X10^3/uL (0.83-4.51); Absolute Neutrophil Count 6.5 X10^3/uL (2.0-7.7); Basophil# 0.01 X10^3/uL; Basophil% 0.1 % (0-1); Eosinophil# 0.06 X10^3/uL; Eosinophils% 0.7 % (0-5); Hematocrit 40.3 % (37-47); Hemoglobin 13.6 g/dL (12.0-15.0); Lymphocyte # 1.34 X10^3/ul (4.0); Lymphocyte % 15.9 % (19-41); Mean Corp Hgb Conc 33.7 g/dL (32-36); Mean Corpuscular Hgb 31.2 pg (27.0-32.0); Mean Corpuscular Volume 92.4 fL (81-99); Mean Platelet Vol. 8.8 fl (6.2-12.0); Monocyte# 0.48 X10^3/uL; Monocyte% 5.7 % (0-10); NRBC Flagged by Analyzer 0 % (0-5); Neutrophil # 6.48 X10^3/uL (2.7-7.7); Neutrophil % 77.1 % (47-70); Platelet Count 164 K/mm3 (150-450); RBC Distribution Width CV 12.3 % (11.6-14.6); RBC Distribution Width SD 41.7 fl (35.1-43.9); Red Blood Count 4.36 M/mm3 (4.2-5.4); White Blood Count 8.4 K/mm3 (4.4-11.0)
--- NOTE | 2019-11-24 17:20 | RAD_ITS ---
STUDY: X-RAY - RIGHT SHOULDER REASON FOR EXAM: Female, 49 years old. PER [employer] WORKER, PT WITH DIZZINESS AND ALT. LOC SINCE YESTERDAY. FALL EARLIER TODAY. RIGHT SHOULDER PAIN AND BRUISING. TECHNIQUE: 2 view(s) of the shoulder. COMPARISON: Chest radiograph dated August 03, 2019. FINDINGS: Normal glenohumeral articulation. Normal acromioclavicular joint. Normal acromion. Normal humeral head and visualized proximal humerus. The soft tissue structures are unremarkable. There is a right basilar patchy opacity within the visualized lungs. RAD/Shoulder min 2 Views IMPRESSION: No acute osseous injury. Right basilar patchy opacity concerning for underlying atelectasis and/or pneumonia. Electronically Signed: Cathie Eller MD at 18:12 EST Tel , Service support ,
[2019-11-24 17:26] LABS: Anion Gap 4 (5-15); BUN 18 mg/dL (7-18); BUN/Creat Ratio 17.3 RATIO (10-20); Calcium,Total 9.1 mg/dL (8.5-10.1); Chloride 97 mmol/L (98-107); Creatinine, Serum 1.04 mg/dL (0.55-1.02); EST Glomerular Filtration Rate 60 mL/min (>60); Est Glom Filt Rate - Afr Amer 72 mL/min (>60); Estimated Creatinine Clearance 60.58 ml/min; Glucose 86 mg/dL (74-106); Sodium Level 139 mmol/L (136-145)
[2019-11-24 17:48] LABS: Valproic Acid (Depakene) Level 88 ug/mL (50-100)
[2019-11-24 17:50] LABS: Bacteria 0 SEEN /hpf (None Seen); Mucous, Urine 0 SEEN /hpf (<or=2+); Red Blood Cells-Urine 0 SEEN /hpf (0-5)
[2019-11-24 17:56] LABS: Color, Urine Yellow (Yellow); Glucose, Dipstick Normal (Normal); Ketone-Dipstick 5 mg/dl (Negative); Leukocyte Esterase-Dipstick 25 /ul (Negative); Nitrite-Dipstick Negative (Negative); Occult Blood-Urine Negative /ul (Negative); Protein-Dipstick 15 mg/dl (Negative); Specific Gravity, Urine 1.015 (1.002-1.030); Urine Clarity Clear (Clear); Urine Urobilinogen 4 mg/dl (Normal)
[2019-11-24 17:58] LABS: Urine Bilirubin Dipstick 1 mg/dL (Negative)
[2019-11-24 18:06] LABS: White Blood Cells 5-10 SEEN /hpf (0-5)
[2019-11-24 18:07] LABS: Squamous Epithelial Cells - UA 0-5 SEEN /hpf (5-10)
[2019-11-24 18:51] VITALS: PULSE 82; RESP 18; O2SAT 96
--- NOTE | 2019-11-24 19:00 | RAD_ITS ---
STUDY: X-RAY CHEST REASON FOR EXAM: Female, 49 years old. Sob TECHNIQUE: Single frontal view of the chest. COMPARISON: August 03, 2019 FINDINGS: There is an ill-defined right basilar opacity. The patient rotated to the right. Normal size heart. Normal mediastinum and noah. Normal visualized pulmonary arteries. Normal visualized aortic arch and descending thoracic aorta. Normal visualized thoracic spine. Normal visualized ribs, clavicles, and shoulders. There is no demonstrated abnormality of the visualized soft tissue structures of the upper abdomen. RAD/Chest 1 View (Portable) IMPRESSION: Right basilar patchy opacity may be secondary to underlying atelectasis and/or evolving pneumonia. Electronically Signed: Cathie Eller MD at 19:27 EST Tel , Service support ,
[2019-11-24 19:42] VITALS: BP 128/72; PULSE 71; RESP 16; O2SAT 97
[2019-11-28 17:57] LABS: Lamotrigine (Lamictal) Level 14.2 ug/mL (2.0-20.0)
== END 2019-11-24 19:43 | disposition home or self-care (01) ==
PROVIDERS: Emergency Provider Emergency Medicine; Family Provider Internal Medicine; PCP Internal Medicine
DX: E87.6 Hypokalemia (principal); S40.011A Contusion of right shoulder, initial encounter; R29.6 Repeated falls; W18.39XA Other fall on same level, initial encounter; Y93.9 Activity, unspecified; Y92.199 Unspecified place in other specified residential institution as the place of occurrence of the external cause; Y99.9 Unspecified external cause status; F03.90 Unspecified dementia, unspecified severity, without behavioral disturbance, psychotic disturbance, mood disturbance, and anxiety; F31.9 Bipolar disorder, unspecified; F79 Unspecified intellectual disabilities; G40.909 Epilepsy, unspecified, not intractable, without status epilepticus; I10 Essential (primary) hypertension; Z88.0 Allergy status to penicillin; R26.81 Unsteadiness on feet; Z79.899 Other long term (current) drug therapy
CPT/HCPCS: 70450; 71045; 73030; 80048; 80164; 81001; 82542; 85025; 87086; 99284; A4216

== ENCOUNTER → 2020-08-05 08:34 | Outpatient (CLI) | payer MEDICARE, MEDICAID, SELFPAY ==
[2020-08-05 10:26] LABS: Valproic Acid (Depakene) Level 83 ug/mL (50-100)
[2020-08-08 08:38] LABS: KEPPRA (LEVETIRACETAM) 49.2 ug/mL (10.0-40.0); Lamotrigine (Lamictal) Level 10.7 ug/mL (2.0-20.0)
== END ==
PROVIDERS: PCP Internal Medicine
DX: G40.919 Epilepsy, unspecified, intractable, without status epilepticus (principal)
CPT/HCPCS: 80164; 80177; 82542

== ENCOUNTER → 2020-08-15 10:49 | Outpatient (CLI) | payer MEDICARE, MEDICAID, SELFPAY ==
[2020-08-15 11:09] LABS: Absolute Lymphocyte Count 1.41 X10^3/uL (0.83-4.51); Basophil# 0.01 X10^3/uL; Basophil% 0.2 % (0-1); Eosinophils% 1.9 % (0-5); Hematocrit 39.5 % (37-47); Hemoglobin 13.6 g/dL (12.0-15.0); Lymphocyte # 1.41 X10^3/ul (4.0); Lymphocyte % 27.2 % (19-41); Mean Corp Hgb Conc 34.4 g/dL (32-36); Mean Corpuscular Hgb 30.9 pg (27.0-32.0); Mean Corpuscular Volume 89.8 fL (81-99); Mean Platelet Vol. 9.4 fl (6.2-12.0); Monocyte% 11.6 % (0-10); NRBC Flagged by Analyzer 0 % (0-5); Neutrophil # 3.03 X10^3/uL (2.7-7.7); Neutrophil % 58.5 % (47-70); Platelet Count 269 K/mm3 (150-450); RBC Distribution Width CV 12.7 % (11.6-14.6); RBC Distribution Width SD 42.4 fl (35.1-43.9); White Blood Count 5.2 K/mm3 (4.4-11.0)
[2020-08-15 11:33] LABS: Valproic Acid (Depakene) Level 72 ug/mL (50-100)
[2020-08-15 11:39] LABS: ALB/GLOB Ratio 0.7 RATIO (0.9-2.4); AST(SGOT) 16 U/L (15-37); Alanine Aminotransfer ALT/SGPT 16 U/L (13-56); Albumin, Serum 2.4 g/dL (3.2-5.0); Alkaline Phosphatase 54 U/L (45-117); Anion Gap 7 (5-15); BUN 10 mg/dL (7-18); BUN/Creat Ratio 12.3 RATIO (10-20); Calcium,Total 8.5 mg/dL (8.5-10.1); Chloride 97 mmol/L (98-107); Creatinine, Serum 0.81 mg/dL (0.55-1.02); EST Glomerular Filtration Rate 79 mL/min (>60); Est Glom Filt Rate - Afr Amer 96 mL/min (>60); Globulin 3.5 g/dL (2.2-4.2); Glucose 80 mg/dL (74-106); Potassium 3.9 mmol/L (3.5-5.1); Protein, Total 5.9 g/dL (6.4-8.2); Sodium Level 134 mmol/L (136-145)
[2020-08-18 15:26] LABS: KEPPRA (LEVETIRACETAM) 54.8 ug/mL (10.0-40.0); Lamotrigine (Lamictal) Level 10.4 ug/mL (2.0-20.0)
== END ==
PROVIDERS: PCP Internal Medicine; Referring Provider Psychiatry & Neurology Child & Adolescent Psychiatry; Visit Provider Psychiatry & Neurology Child & Adolescent Psychiatry
DX: Z79.899 Other long term (current) drug therapy (principal)
CPT/HCPCS: 80053; 80164; 80177; 82542; 85025

== ENCOUNTER 2020-09-08 15:54 | Emergency (ER) | payer MEDICARE, MEDICAID, SELFPAY ==
[2020-09-08] VITALS (11 sets, daily range): BP systolic 140–192; BP diastolic 68–96; PULSE 68–90; RESP 12–20; TEMP 36.3–36.4; O2SAT 96–100; BMI 31.9
--- NOTE | 2020-09-08 15:53 | CT_ITS ---
We are attempting to reach an attending provider to discuss findings. An addendum with communication details will be sent when the communication is complete. STUDY: CTA HEAD AND NECK WITH CONTRAST REASON FOR EXAM: Female, 50 years old. facial droop RADIATION DOSAGE (If Supplied By Facility): CTDIvol = ( 23.69 ) mGy, DLP = ( 708.56 ) mGycm TECHNIQUE: CT angiography was performed with a multi-detector CT scanner. Data acquisition was obtained from the skull base through the vertex following intravenous administration of 100 ml of isovue 370. MIP images were reconstructed from the axial data set. Post-processing of the angiographic images was performed, with multiplanar reformation and 3D reconstruction. Individualized dose optimization techniques were used for this CT. COMPARISON: No relevant priors. FINDINGS: Normal bilateral petrous carotid arteries. Normal right cavernous carotid artery with a normal supraclinoid bifurcation. Normal left cavernous carotid artery with a normal supraclinoid bifurcation. Normal right A1 segments of the anterior cerebral artery. Normal left A1 segments of the anterior cerebral artery. Normal intact anterior communicating artery (ACOM). Normal bilateral A2 segments of the anterior cerebral arteries. Normal right M1 and M2 segments of the middle cerebral arteries, with a normal M1 bifurcation. Normal left M1 and M2 segments of the middle cerebral arteries, with a normal M1 bifurcation. Normal right posterior communicating artery (PCOM). Normal left posterior communicating artery (PCOM). Normal bilateral vertebral arteries. Normal basilar artery with a normal basilar bifurcation. The visualized bilateral superior cerebellar (SCA) arteries are normal. Normal bilateral P1, P2 and visualized P3 segments of the posterior cerebral arteries. There is no demonstrated aneurysm of the [place]. There is no demonstrated abnormality of the visualized brain. AORTIC ARCH: Normal visualized aortic arch. Normal origins of the brachiocephalic, left common carotid, and left subclavian arteries. RIGHT CAROTID ARTERIES: Normal right common carotid artery (CCA). Normal right common carotid bulb. Normal origin of the right internal carotid (ICA) artery without a hemodynamically significant stenosis. Normal visualized cervical portion of the right internal carotid artery. Normal origin of the right external carotid artery (ECA). LEFT CAROTID ARTERIES: Normal left common carotid artery (CCA). Normal left common carotid bulb. Normal origin of the left internal carotid (ICA) artery without a hemodynamically significant stenosis. Normal visualized cervical portion of the left internal carotid artery. Normal origin of the left external carotid artery (ECA). VERTEBRAL ARTERIES: There is enhancement within the bilateral vertebral arteries with a small right vertebral artery, and a dominant left vertebral artery. CT/CTA Head AND Neck W/ Contrast IMPRESSION: Normal CTA Head and neck with contrast. Electronically Signed: Juancarlos Iqbal MD at 16:26 EDT Tel , Service support ,
--- NOTE | 2020-09-08 15:59 | CT_ITS ---
We are attempting to reach an attending provider to discuss findings. An addendum with communication details will be sent when the communication is complete. STUDY: CT BRAIN WITHOUT CONTRAST REASON FOR EXAM: Female, 50 years old. facial droop. hx of seizures RADIATION DOSAGE (If Supplied By Facility): CTDIvol = ( 44.99 ) mGy, DLP = ( 812.98 ) mGycm TECHNIQUE: Transaxial CT imaging of the brain was performed without administration of intravenous contrast material. Individualized dose optimization techniques were used for this CT. COMPARISON: 11/24/2019 FINDINGS: Normal soft tissue structures. There is hyperostosis frontalis internus. There is mild cerebral atrophy with widening of the extra-axial spaces and ventricular dilatation. Normal white matter tracts of the cerebral hemispheres. Normal basal ganglia and thalami. Normal brainstem. Normal cerebellum. There is no intracranial hemorrhage. There are no findings of an acute ischemic infarction. Normal visualized paranasal sinuses. CT/Brain/Head without Contrast IMPRESSION: Chronic involutional changes of the brain. Electronically Signed: Juancarlos Iqbal MD at 16:14 EDT Tel , Service support ,
--- NOTE | 2020-09-08 15:59 | EKG12_ITS ---
Test Reason : Blood Pressure : / mmHG Vent. Rate : 079 BPM Atrial Rate : 079 BPM P-R Int : 134 ms QRS Dur : 084 ms QT Int : 404 ms P-R-T Axes : 045 038 045 degrees QTc Int : 463 ms Normal sinus rhythm Normal ECG Confirmed by VICTORINA SNOW, MALAIKA ([id number]), editor department EMELY TREVIZO ([id number]) on 09/15/2020 11:43:59 AM Referred By: ANA Confirmed By:MALAIKA PRAJAPATI MD
[2020-09-08 16:16] LABS: Absolute Lymphocyte Count 1.15 X10^3/uL (0.83-4.51); Absolute Neutrophil Count 4.2 X10^3/uL (2.0-7.7); Basophil# 0.01 X10^3/uL; Basophil% 0.2 % (0-1); Eosinophil# 0.06 X10^3/uL; Hematocrit 41.6 % (37-47); Hemoglobin 14.5 g/dL (12.0-15.0); Lymphocyte # 1.15 X10^3/ul (4.0); Lymphocyte % 19.3 % (19-41); Mean Corp Hgb Conc 34.9 g/dL (32-36); Mean Corpuscular Hgb 31.3 pg (27.0-32.0); Mean Corpuscular Volume 89.8 fL (81-99); Mean Platelet Vol. 9.3 fl (6.2-12.0); Monocyte# 0.56 X10^3/uL; Monocyte% 9.4 % (0-10); NRBC Flagged by Analyzer 0 % (0-5); Neutrophil # 4.17 X10^3/uL (2.7-7.7); Neutrophil % 69.8 % (47-70); Platelet Count 235 K/mm3 (150-450); RBC Distribution Width CV 12.5 % (11.6-14.6); RBC Distribution Width SD 41.2 fl (35.1-43.9); Red Blood Count 4.63 M/mm3 (4.2-5.4)
--- NOTE | 2020-09-08 16:20 | RAD_ITS ---
STUDY: X-RAY CHEST REASON FOR EXAM: Female, 50 years old. stroke protocol TECHNIQUE: Single AP portable view of the chest. COMPARISON: 11/24/2019 FINDINGS: The lungs are clear and expanded. There is no demonstrated pleural abnormality. There is moderate cardiac enlargement. Normal mediastinum and noah. Normal visualized pulmonary arteries. Normal visualized aortic arch and descending thoracic aorta. Normal visualized thoracic spine. Normal visualized ribs, clavicles, and shoulders. There is no demonstrated abnormality of the visualized soft tissue structures of the upper abdomen. RAD/Chest 1 View IMPRESSION: Normal x-ray examination of the chest. Electronically Signed: Juancarlos Iqbal MD at 16:33 EDT Tel , Service support ,
[2020-09-08 16:26] LABS: Prothrombin Time (Protime)PT. 12.5 SECONDS (11.7-14.9)
[2020-09-08 16:27] LABS: Partial Thromboplast Time 23.5 Seconds (24.1-36.2)
[2020-09-08 16:34] LABS: Anion Gap 4 (5-15); BUN 10 mg/dL (7-18); BUN/Creat Ratio 10.7 RATIO (10-20); Calcium,Total 9.6 mg/dL (8.5-10.1); Chloride 96 mmol/L (98-107); Creatinine, Serum 0.93 mg/dL (0.55-1.02); EST Glomerular Filtration Rate 67 mL/min (>60); Est Glom Filt Rate - Afr Amer 81 mL/min (>60); Glucose 100 mg/dL (74-106); Potassium 4.2 mmol/L (3.5-5.1); Sodium Level 132 mmol/L (136-145)
--- NOTE | 2020-09-08 16:48 | ED.DCSUM_ITS ---
History of Present Illness Chief Complaint: Neuro S/Sx Informant: Patient Onset: Today Narrative: 50-year-old female with past medical history of epilepsy presents with concern for left-sided facial droop from local nursing facility. Approximately 30 minutes prior to arrival she had a seizure and then after return to baseline she began having left-sided facial droop. Patient does have some developmental delay and is difficult to obtain a history of present illness. Current NIH on arrival of 1. Past Medical History - Allergies and Home Meds Allergies/Adverse Reactions: Allergies Penicillins Allergy (Verified 11/24/19 15:50) Unknown Primary Care Physician: Kym Heard MD [Primary Care Provider] - Prior records reviewed: Yes Past Medical History: - - seizures Surgical History: noncontributory Lives: Shelter Smoking Status: Unknown if ever smoked - Family History Maternal Family History: Reports: No pertinent history Review of Systems General: Denies: Chills, Fever, Sweats Eyes: Denies: Visual changes - bilaterally, Diplopia ENT: Denies: Rhinorrhea, Sore throat Cardiovascular: Denies: Chest pain, Palpitations Respiratory: Denies: Dyspnea, Cough, Dyspnea on exertion Gastrointestinal: Denies: Abdominal pain, Nausea, Vomiting, Diarrhea, Melena, Hematochezia Genitourinary: Denies: Dysuria, Hematuria, Frequency Musculoskeletal: Denies: Back pain, Extremity Pain Skin: Denies: Rash, Wounds Neurological: Reports: - - facial droop. Denies: Headache, Weakness, Numbness Physical Exam Vital Signs/Narrative: Vital Signs Temp Pulse Resp BP Pulse Ox 09/08/20 16:30 74 14 179/68 H 96 09/08/20 16:09 81 14 160/74 H 99 09/08/20 16:05 79 14 168/92 H 99 09/08/20 16:03 97.3 F L 81 16 160/74 H 97 General: Well nourished, Well developed, No Acute Distress Head: Normocephalic, Atraumatic Eyes: Perrl, EOMI ENT: Moist mucous membranes, No rhinorrhea Neck: Supple, Nontender Cardiovascular: Regular rate, Regular rhythm, No murmurs Respiratory: No distress, CTA bilaterally, Chest nontender Abdomen: Soft, Nontender, Nondistended, Normal bowel sounds Back: Nontender, Normal Inspection Extremities: Nontender, No edema Skin: Normal color, No rash Neurological: Alert, Oriented x3, Cranial nerves II-XII grossly intact, Normal Strength, Normal Sensation, Left side facial droop Psychological: Normal affect, Normal Mood Diagnostic/Tx/Re-eval Chest X-Ray - ED: 1 View, Normal Clinical Impression(s) from Imaging Studies Head/Neck CTA 09/08/20 15:53 IMPRESSION: Normal CTA Head and neck with contrast. Electronically Signed: Juancarlos Iqbal MD at 16:26 EDT Tel , Service support , ADDENDUM: 09/08/20 1641 IMPRESSION: Normal CTA Head and neck with contrast. N.B. : The above information has been verbally conveyed by Juancarlos Iqbal MD to CHRISTAL Quintana on 09/08/2020 16:34:20 (ET). Electronically Signed: Juancarlos Iqbal MD at 16:26 EDT Tel , Service support , Brain CT 09/08/20 15:59 IMPRESSION: Chronic involutional changes of the brain. Electronically Signed: Juancarlos Iqbal MD at 16:14 EDT Tel , Service support , ADDENDUM: 09/08/20 1641 IMPRESSION: Chronic involutional changes of the brain. N.B. : The above information has been verbally conveyed by Juancarlos Iqbal MD to CHRISTAL Quintana MD, on 09/08/2020 16:34:15 (ET). Electronically Signed: Juancarlos Iqbal MD at 16:14 EDT Tel , Service support , Chest X-Ray 09/08/20 16:20 IMPRESSION: Normal x-ray examination of the chest. Electronically Signed: Juancarlos Iqbal MD at 16:33 EDT Tel , Service support , Laboratory Data 09/08/20 09/08/20 09/08/20 15:50 15:50 15:50 WBC 6.0 RBC 4.63 Hgb 14.5 Hct 41.6 MCV 89.8 MCH 31.3 MCHC 34.9 RDW Std Deviation 41.2 RDW Coeff of Taylor 12.5 Plt Count 235 MPV 9.3 Immature Gran % (Auto) 0.300 Neut % (Auto) 69.8 Lymph % (Auto) 19.3 [place] % (Auto) 9.4 Eos % (Auto) 1.0 Baso % (Auto) 0.2 Absolute Neuts (auto) 4.2 Absolute Lymphs (auto) 1.15 Nucleated RBC % 0 PT 12.5 INR 1.0 APTT 23.5 L Sodium 132 L Potassium 4.2 Chloride 96 L Carbon Dioxide 32.0 Anion Gap 4 L BUN 10 Creatinine 0.93 Estim Creat Clear Calc 61.80 Est GFR (MDRD) Af Amer 81 Est GFR (MDRD) Non-Af 67 BUN/Creatinine Ratio 10.7 Glucose 100 Calcium 9.6 Troponin I < 0.015 - Rhythm Strip Rhythm Strip: Sinus Rhythm Rate: 79 Ectopy: None - EKG Initial EKG Interpretation: Sinus Rhythm - Sinus rhythm at 79 bpm. HI and QTc within normal limits. No evidence of acute ischemia. - Medical Decision Making Patient appears well and nontoxic. NIH of 1 for a left-sided facial droop upon arrival. Taken emergently to CT. CT brain and CTA showed no acute process. Patient has had 17 seizures in the past 24 hours. Patient has no seizure activity in the emergency department. Lab work within normal limits. Patient was given 1.5 g of Keppra. Spoke initially with hospitalist at [facility] who requested transfer to tertiary facility given concern for status epilepticus. Spoke with critical care physician Dr. Forman who was agreeable with transfer. Patient transferred in stable condition. Impression: 1. Status epilepticus 2. Left sided facial droop - Critical Care Time Critical care time (excluding procedures): 30-74 minutes - Bedside evaluation and treatement. Consulation with specialist. Multiple re-evaluations. ED Disposition - Plan for ED Patient: Disposition: [facility] Referrals: Kym Heard MD [Primary Care Provider] -
[2020-09-08] MEDS: Aspirin 81 MG TAB.CHEW 324 MG PO (17:21)
[2020-09-08] MEDS: levETIRAcetam IV 1,000 MG/100 ML BAG 400 MG IV (18:00)
[2020-09-08 18:38] LABS: Valproic Acid (Depakene) Level 67 ug/mL (50-100)
== END 2020-09-08 19:09 | disposition short-term general hospital (02) ==
PROVIDERS: Emergency Provider Emergency Medicine; PCP Internal Medicine
DX: G40.901 Epilepsy, unspecified, not intractable, with status epilepticus (principal); R29.810 Facial weakness; R62.50 Unspecified lack of expected normal physiological development in childhood; Z88.0 Allergy status to penicillin
CPT/HCPCS: 70450; 70496; 70498; 71045; 80048; 80164; 84484; 85025; 85610; 85730; 87635; 93005; 96365; 99285; J7050; Q9967; A4216; U0003

== ENCOUNTER 2020-10-17 17:21 | Emergency (ER) | payer MEDICARE, MEDICAID, SELFPAY ==
[2020-09-08 16:03] VITALS: BMI 31.9
[2020-10-17 17:23] VITALS: BP 149/89; PULSE 72; RESP 17; TEMP 36; O2SAT 100; BMI 26.6
--- NOTE | 2020-10-17 17:39 | ED.VISSUMM ---
- ER Visit Summary Date of Service: 10/17/20 Chief Complaint: Right foot bruising History of Present Illness: The patient is a [address] Heard. Patient has a history of MRDD and is not a reliable informant. Staff reports that they noticed the patient's right foot was bruised today. Patient intermittently complains of pain. She has varying stories as far as what happened. Physical Examination: Vitals: Stable. Afebrile. General: Well-nourished and well-developed. Head: Normocephalic atraumatic. Neck: Supple, no lymphadenopathy. No JVD. Nontender. Cardiovascular: Regular rate and rhythm. No murmurs. Respiratory: No respiratory distress. Clear to auscultation bilaterally. Abdominal: Soft, nontender, nondistended, normal bowel sounds. No guarding, rebound, or peritoneal signs. Back: Nontender. Extremities: Mild tenderness palpation over the right lateral malleolus. No pain over the medial malleolus. No pain over foot. However, there is contusion over the lateral portion of her foot and ankle. She has a 2+ dorsalis pedis pulse. Skin: Normal color, no rash. Neurologic: Alert and oriented ?3. Cranial nerves II through XII are intact. Normal strength and sensation. Psych: Normal affect. Test Results: [] Emergency Department Course and Treatment: Patient refused pain medications. She is resting comfortably. Treatment Plan: [] Disposition: [] Impression: [] This note was generated with [employer] dictation software. It may contain incorrect words, spelling, and punctuation that were not noted in review of the chart prior to signing ED Disposition - Plan for ED Patient: Instructions: ED Sprain Foot Referrals: Kym Heard MD [Primary Care Provider] - 1 Week if not improving
--- NOTE | 2020-10-17 17:40 | RAD_ITS ---
STUDY: X-RAY - RIGHT FOOT CLINICAL: Female, 50 years old. PT WITH RIGHT FOOT PAIN, UNKNOWN INJURY. LATERAL SWELLING AND BRUISING. TECHNIQUE: 3 view(s) of the foot. COMPARISON: None. FINDINGS: Normal talus, calcaneus, and tarsal bones. Normal visualized subtalar, talonavicular, calcaneocuboid, tarsal and tarsometatarsal articulations. Normal metatarsi. Normal metatarsophalangeal joint of the great toe. Normal tibial and fibular sesamoid bones. Normal interphalangeal joint of the great toe. Normal phalanges of the great toe. Normal second through fifth metatarsophalangeal joints. Normal interphalangeal joints and phalanges of the lesser toes. There is distal forefoot dorsal pedal soft tissue edema. RAD/Foot min 3 Views IMPRESSION: No acute osseous injury. Electronically Signed: Solo Gabriel, at 18:11 EST Tel , Service support ,
--- NOTE | 2020-10-17 17:40 | RAD_ITS ---
STUDY: X-RAY - RIGHT ANKLE REASON FOR EXAM: Female, 50 years old. RT ANKLE PAIN. UNKNOWN INJURY. LATERAL BRUISING AND SWELLING. TECHNIQUE: 3 view(s) of the ankle. COMPARISON: None. FINDINGS: Normal visualized distal tibia and fibula. Normal medial and lateral malleoli. Normal tibiotalar articulation and ankle mortise. Normal visualized talus and calcaneus. The visualized subtalar, talonavicular, calcaneocuboid and tarsal articulations are normal. There is medial soft tissue edema. RAD/Ankle min 3 Views IMPRESSION: No acute osseous injury. Probable soft tissue injury. Electronically Signed: Solo Gabriel, at 18:12 EST Tel , Service support ,
--- NOTE | 2020-10-17 18:10 | ED.RN ---
consent for treatment obtained by negar ngo & shantel Brown rn from Mary Puga.
== END 2020-10-17 18:20 | disposition home or self-care (01) ==
PROVIDERS: Emergency Provider Emergency Medicine; PCP Internal Medicine
DX: S90.31XA Contusion of right foot, initial encounter (principal); X58.XXXA Exposure to other specified factors, initial encounter; Y92.9 Unspecified place or not applicable; Y99.9 Unspecified external cause status; I10 Essential (primary) hypertension; F03.90 Unspecified dementia, unspecified severity, without behavioral disturbance, psychotic disturbance, mood disturbance, and anxiety; F31.9 Bipolar disorder, unspecified; Z86.73 Personal history of transient ischemic attack (TIA), and cerebral infarction without residual deficits; F79 Unspecified intellectual disabilities
CPT/HCPCS: 73610; 73630; 99282

== ENCOUNTER 2020-11-27 06:17 | Emergency (ER) | payer MEDICARE, MEDICAID, SELFPAY ==
[2020-11-27 06:18] VITALS: BP 163/71; PULSE 72; RESP 16; TEMP 36.7; O2SAT 100; BMI 32.2
--- NOTE | 2020-11-27 06:25 | ED.DCSUM_ITS ---
History of Present Illness Chief Complaint: Head Injury Informant: Patient, - - [employer]: - - Cognitive impairment Onset: Today Mechanism/Context: Blunt Injury, Fall Quality of Pain: - - No complaint of pain Current Severity: Gone Maximum Severity: Unknown Worsened by: Nothing Relieved by: Nothing Associated Symptoms: Negative for: Parasthesias, Loss of function, Inability to ambulate, Loss of consciousness Narrative: Patient is a middle-age woman who is cognitively impair. She presents after mechanical fall. She slipped with cardiovascular surgical tech. Fall was witnessed. There was no loss of conscious. No change in behavior. No vomiting. Tetanus immunization unknown. She presently has no complaints. Tetanus Immunization: Unknown Prior similar symptoms: No Recent Illness/Hospitalization: No - Past Medical History (1) Bipolar disorder Status: Chronic (2) Dementia Status: Chronic (3) Hypertension Status: Chronic (4) Mental retardation Status: Chronic (5) Seizures Status: Chronic Past Medical History - Allergies and Home Meds Allergies/Adverse Reactions: Allergies Penicillins Allergy (Verified 11/27/20 06:24) Unknown Primary Care Physician: Kym Heard MD [Primary Care Provider] - Prior records reviewed: Yes Surgical History: noncontributory Lives: - - [facility] Smoking Status: Never smoker - Family History Maternal Family History: Reports: No pertinent history Review of Systems ROS: Unable to Obtain - Cognitive impairment and cardiovascular surgical tech presently not available. General: Denies: Chills, Fever Eyes: Denies: Visual changes - bilaterally, Blurred Vision - bilaterally ENT: Reports: - - Negative epistaxis. Denies: Rhinorrhea, Sore throat Cardiovascular: Denies: Chest pain, Palpitations Respiratory: Denies: Dyspnea, Cough Gastrointestinal: Denies: Nausea, Vomiting Musculoskeletal: Denies: Myalgias, Arthralgias, Neck pain, Back pain, Swelling, Extremity Pain Skin: Reports: Wounds Neurological: Denies: Headache, Weakness Allergy: Denies: Swelling of the mouth, Swelling of the tongue Physical Exam Vital Signs/Narrative: Vital Signs Temp Pulse Resp BP Pulse Ox 11/27/20 06:18 98.0 F 72 16 163/71 H 100 Inital Vital Signs reviewed: Yes General: Well nourished, Well developed, Obese Head: Normocephalic, Trauma - Patient has a curvilinear laceration near the junction of the occipital and parietal bones., - - There is no palpable depression. There is no clinical findings of basilar skull fracture. There is slight discomfort with palpation of the laceration. Eyes: Perrl, EOMI, - - There is no subconjunctival hemorrhage.. Negative for: Pale conjunctiva, Scleral icterus ENT: TM's clear, No hemotympanum or drainage, No trauma. Negative for: Nasal trauma, Nasal septal hematoma Neck: Nontender, Full ROM. Negative for: Spinal Tenderness Cardiovascular: Regular rate, Regular rhythm, No murmurs, Normal S1, Normal S2 Respiratory: No distress, CTA bilaterally, Chest nontender Skin: Normal color, No rash, Trauma - Scalp laceration Neurological: Alert, Cranial nerves II-XII grossly intact, Normal Strength, Normal Sensation, - - No clonus or Babinski sign.. Negative for: Oriented x3 Psychological: - - Patient is timid. - Glascow Coma Scale Eye Opening: Spontaneous Motor: Obeys Commands Verbal: Oriented Coma Scale Total: 15 Diagnostic/Tx/Re-eval - Medical Decision Making Patient has a scalp laceration which requires repair. Plan is local anesthesia, cleanse the wound and stapled. Since there is no loss of consciousness, seizure, or focal neurologic findings imaging was not obtained. Procedures - Lacerations No standard instances Length: 0.98 in Depth: Sub Q Shape: Curvilinear Prep: Marino Laceration Repair: Lidocaine, Local Irrigated (ml): 50 Number of Sutures/Sujey: 4 - Renae Comment: There was no involvement of the galea. ED Disposition - Plan for ED Patient: Disposition: Home or Assisted Living Diagnosis: Fall with injury, Scalp laceration Instructions: ED Laceration: All Closures Referrals: Kym Heard MD [Primary Care Provider] - 7 Days for suture removal
[2020-11-27] MEDS: Lidocaine 1% (20 ml mdv) 20 ML Vial INFILT (06:40)
[2020-11-27] MEDS: Diphth,Pertuss(Acell),Tet Vac 0.5 ML Vial IM (06:41)
== END 2020-11-27 07:29 | disposition home or self-care (01) ==
LOC: ED 07:21
PROVIDERS: Emergency Provider Emergency Medicine; PCP Internal Medicine
DX: S01.01XA Laceration without foreign body of scalp, initial encounter (principal); W01.198A Fall on same level from slipping, tripping and stumbling with subsequent striking against other object, initial encounter; Y93.89 Activity, other specified; Y92.9 Unspecified place or not applicable; Y99.9 Unspecified external cause status; F31.9 Bipolar disorder, unspecified; F03.90 Unspecified dementia, unspecified severity, without behavioral disturbance, psychotic disturbance, mood disturbance, and anxiety; F79 Unspecified intellectual disabilities; I10 Essential (primary) hypertension; Z88.0 Allergy status to penicillin; Z23 Encounter for immunization
CPT/HCPCS: 12001; 90471; 90715; 99284

== ENCOUNTER 2020-12-25 12:15 | Emergency (ER) | payer MEDICARE, MEDICAID, SELFPAY ==
[2020-12-25 12:18] VITALS: BP 138/91; PULSE 90; RESP 14; TEMP 35.6; O2SAT 99; BMI 29.7
--- NOTE | 2020-12-25 12:30 | EKG12_ITS ---
Test Reason : GEN ILLNESS Blood Pressure : / mmHG Vent. Rate : 078 BPM Atrial Rate : 078 BPM P-R Int : 134 ms QRS Dur : 106 ms QT Int : 374 ms P-R-T Axes : 040 039 023 degrees QTc Int : 426 ms Normal sinus rhythm Nonspecific ST and T wave abnormality Abnormal ECG Confirmed by VICTORINA SNOW, MALAIKA ([id number]), technical writer and editor TEENA GOMEZ ([id number]) on 12/26/2020 11:19:37 AM Referred By: CHARLES Confirmed By:MALAIKA PRAJAPATI MD
--- NOTE | 2020-12-25 12:32 | ED.DCSUM_ITS ---
- ER Visit Summary Date of Service: 12/25/20 Chief Complaint: [Decreased p.o. intake and generalized weakness] History of Present Illness: The patient is a 50 F [presents to the emergency department with caregiver from a fdc. Most of the history comes from the caregiver as patient is a poor historian and has history of dementia as well as MR. Over the last month or so she has had decreased p.o. intake. She has fallen 3 times in the last 36 hours. Patient normally walks with assistance with a gait belt but has required more assistance of late. She has had no fever or cough. Patient denies any chest pain or abdominal pain. She denies shortness of breath. circular knife cutter machine states that the stools been somewhat more loose than usual.] Physical Examination: [HEENT-PERRLA, EOMI. Cranial nerves II through XII grossly intact. TMs clear. Mucous membranes moist. No adenopathy. No external evidence of trauma to her head. No C-spine tenderness to palpation. Cardiovascular-regular rate and rhythm without murmur or ectopy Lungs-clear to auscultation, chest wall stable without crepitus or subcu emphysema Abdomen-normoactive bowel sounds, soft, nontender, no rebound or rigidity, no peritoneal signs. Extremities-intact ?4, normal range of motion, normal pulses, atraumatic] Test Results: [CBC with differential obtained showing a 5.6, hemoglobin 14.6, hematocrit 43, plates 183. Chemistries unremarkable other than a slightly depressed potassium of 3.1. BUN was 13 and creatinine 1.02. LFTs were normal. Urinalysis was normal. Valproic acid level was 93. CT scan of the brain without contrast showed chronic involutional changes. EKG obtained arrival showed a sinus rhythm with a ventricular rate of [address] changes. Troponin was less than 0.015. Urinalysis was unremarkable.] Emergency Department Course and Treatment: [ IV established. Patient was ordered a liter normal same fluid bolus.] Treatment Plan: [I advised to continue with oral hydration and recommended a daily Ensure. Recommended follow-up with primary care physician in 3 to 5 days. At this point etiology of patient's decreased p.o. intake is unclear.] Disposition: [Discharged home in stable condition] Impression: [Decreased p.o. intake Generalized weakness] This note was generated with Dragon dictation software. It may contain incorrect words, spelling, and punctuation that were not noted in review of the chart prior to signing ED Disposition - Plan for ED Patient: Referrals: Kym Heard MD [Primary Care Provider] -
[2020-12-25] MEDS: 0.9% Normal Saline 1,000 ML 1000 ML IV (13:20)
[2020-12-25 13:22] LABS: Mucous, Urine 0 SEEN /hpf (<or=2+); Red Blood Cells-Urine 0 SEEN /hpf (0-5)
[2020-12-25 13:24] LABS: Absolute Lymphocyte Count 1.28 X10^3/uL (0.83-4.51); Absolute Neutrophil Count 3.7 X10^3/uL (2.0-7.7); Basophil# 0.01 X10^3/uL; Basophil% 0.2 % (0-1); Eosinophil# 0.05 X10^3/uL; Eosinophils% 0.9 % (0-5); Hematocrit 43.4 % (37-47); Hemoglobin 14.6 g/dL (12.0-15.0); Lymphocyte # 1.28 X10^3/ul (4.0); Lymphocyte % 23.1 % (19-41); Mean Corp Hgb Conc 33.6 g/dL (32-36); Mean Corpuscular Hgb 31.6 pg (27.0-32.0); Mean Corpuscular Volume 93.9 fL (81-99); Mean Platelet Vol. 9.7 fl (6.2-12.0); Monocyte# 0.54 X10^3/uL; Monocyte% 9.7 % (0-10); NRBC Flagged by Analyzer 0 % (0-5); Neutrophil # 3.65 X10^3/uL (2.7-7.7); Neutrophil % 65.7 % (47-70); Platelet Count 183 K/mm3 (150-450); RBC Distribution Width CV 12.5 % (11.6-14.6); RBC Distribution Width SD 43.2 fl (35.1-43.9); Red Blood Count 4.62 M/mm3 (4.2-5.4); White Blood Count 5.6 K/mm3 (4.4-11.0)
[2020-12-25 13:25] LABS: Color, Urine Yellow (Yellow); Glucose, Dipstick Normal (Normal); Ketone-Dipstick 5 mg/dl (Negative); Leukocyte Esterase-Dipstick 25 /ul (Negative); Nitrite-Dipstick Negative (Negative); Occult Blood-Urine Negative /ul (Negative); Protein-Dipstick 15 mg/dl (Negative); Specific Gravity, Urine 1.015 (1.002-1.030); Urine Bilirubin Dipstick Negative (Negative); Urine Clarity Clear (Clear); Urine Urobilinogen 4 mg/dl (Normal)
[2020-12-25 13:30] LABS: Bacteria 1+ /hpf (None Seen); Hyaline Cast 0-5 SEEN /lpf (0-5); Squamous Epithelial Cells - UA 0-5 SEEN /hpf (5-10); White Blood Cells 0-5 SEEN /hpf (0-5)
[2020-12-25 13:31] LABS: Amorphous Sediment 1+
[2020-12-25 13:43] LABS: ALB/GLOB Ratio 0.6 RATIO (0.9-2.4); AST(SGOT) 39 U/L (15-37); Alanine Aminotransfer ALT/SGPT 27 U/L (13-56); Albumin, Serum 2.5 g/dL (3.2-5.0); Alkaline Phosphatase 63 U/L (45-117); Anion Gap 7 (5-15); BUN 13 mg/dL (7-18); BUN/Creat Ratio 12.7 RATIO (10-20); Calcium,Total 8.8 mg/dL (8.5-10.1); Chloride 106 mmol/L (98-107); Creatinine, Serum 1.02 mg/dL (0.55-1.02); EST Glomerular Filtration Rate 61 mL/min (>60); Est Glom Filt Rate - Afr Amer 73 mL/min (>60); Estimated Creatinine Clearance 49.24 ml/min; Globulin 4.1 g/dL (2.2-4.2); Glucose 87 mg/dL (74-106); Potassium 3.1 mmol/L (3.5-5.1); Protein, Total 6.6 g/dL (6.4-8.2); Sodium Level 141 mmol/L (136-145)
--- NOTE | 2020-12-25 14:18 | CT_ITS ---
STUDY: CT BRAIN WITHOUT CONTRAST REASON FOR EXAM: Female, 50 years old. FALLS/CONFUSION/HX OF COMPLEX SEIZURES, DEMENTIA, MRDD, BIPOLAR, NOT EATING OR DRINKING, WEAKNESS RADIATION DOSAGE (If Supplied By Facility): CTDIvol = ( 44.99 ) mGy, DLP = ( 762.36 ) mGycm TECHNIQUE: Transaxial CT imaging of the brain was performed without administration of intravenous contrast material. Individualized dose optimization techniques were used for this CT. COMPARISON: Comparison is made with prior examination in 09/08/2020 and 11/24/2019. FINDINGS: Normal soft tissue structures. There is hyperostosis frontalis internus. There is mild cerebral atrophy with widening of the extra-axial spaces and ventricular dilatation. Normal white matter tracts of the cerebral hemispheres. Normal basal ganglia and thalami. Normal brainstem. There is mild cerebellar atrophy. There is no intracranial hemorrhage. There are no findings of an acute ischemic infarction. Atherosclerotic calcification of the cavernous portions of the internal carotid arteries bilaterally. Normal visualized paranasal sinuses. CT/Brain/Head without Contrast IMPRESSION: Chronic involutional changes of the brain. Electronically Signed: Nacho Tang MD at 14:46 EST , Service support ,
[2020-12-25 15:09] VITALS: BP 138/88; PULSE 79; RESP 14; O2SAT 98
[2020-12-25 15:11] LABS: Valproic Acid (Depakene) Level 93 ug/mL (50-100)
--- NOTE | 2020-12-25 15:24 | ED.DEP ---
ED Disposition - Plan for ED Patient: Instructions: ED Weakness (Uncertain Cause) Referrals: Kym Heard MD [Primary Care Provider] - 3-5 Days
== END 2020-12-25 16:15 | disposition home or self-care (01) ==
LOC: ED 12:50
PROVIDERS: Emergency Provider Emergency Medicine; PCP Internal Medicine
DX: R53.1 Weakness (principal); F03.90 Unspecified dementia, unspecified severity, without behavioral disturbance, psychotic disturbance, mood disturbance, and anxiety; I10 Essential (primary) hypertension; F79 Unspecified intellectual disabilities
CPT/HCPCS: 70450; 80053; 80164; 81001; 83605; 84484; 85025; 87040; 87426; 93005; 96360; 99284; J7030; P9612; A4216

== ENCOUNTER 2021-02-16 16:08 | Emergency (ER) | payer MEDICARE, MEDICAID, SELFPAY ==
[2021-02-16 16:09] VITALS: BP 149/92; PULSE 94; RESP 16; TEMP 36.2; O2SAT 99; BMI 23.3
--- NOTE | 2021-02-16 17:19 | ED.DCSUM_ITS ---
- ER Visit Summary Date of Service: 02/16/21 Chief Complaint: Fall, laceration History of Present Illness: The patient is a [address] Heard. She has a history of MRDD and is not a reliable informant. Per staff she fell and hit her head on the bed. She did not have a loss of consciousness. She is not on anticoagulant. They are unsure when her last tetanus shot was. Patient has had repeated falls and has a black eye on the right that is not new. Patient denies headache, neck pain, back pain, shoulder pain, wrist pain, or hip pain. Review of systems: General: No fever, chills, cold sweats. Cardiovascular: No chest pain, palpitations. Respiratory: No cough, shortness of breath, dyspnea on exertion. Gastrointestinal: No abdominal pain, nausea, vomiting, diarrhea, melena, or hematochezia. Genitourinary: No dysuria, frequency, hematuria. Skin: No rash. Neuro: No headache, numbness, weakness. Physical Examination: Vitals: Stable. Afebrile. Head: 3 cm laceration left parietal area. Neck: No vertebral tenderness. Full ROM without difficulty. Cleared by NEXUS criteria. Back: No vertebral tenderness. General: Alert. NAD. Cardiovascular exam: Regular rate and rhythm, no murmur, rub or gallop. Respiratory exam: Chest nontender. No crepitus. Clear to auscultation bilaterally. No wheezes or stridor. Abdominal exam: Soft, nontender, nondistended, normal bowel sounds. No pain in RUQ or LUQ specifically. No peritoneal signs. Extremity: Atraumatic. No pain with range of motion. Test Results: CBC shows lymphocytes 19. Chem-7 is normal. Depakote level is 79. Emergency Department Course and Treatment: Patient had a tetanus shot updated. Chart review shows she has a history of hyponatremia and is on Depakote. As both of these can cause falls they will be checked. Patient had her tetanus updated. She had her wound anesthetized and repaired. She tolerated this well. Treatment Plan: Patient be discharged instructions follow Dr. Heard in 7 to 10 days for staple removal. Return to the emergency department for any worsening symptoms. Disposition: To home in improved and stable condition. Impression: 1. Fall. 2. Scalp laceration, 3 cm, repaired. Procedure note: Wound was cleansed with chlorhexidine soap. Anesthetized with 1% lidocaine without epinephrine. Copiously irrigated with normal saline. Wound was explored there is no foreign material present. It was closed with 3 michael. The patient tolerated it well. This note was generated with [employer] dictation software. It may contain incorrect words, spelling, and punctuation that were not noted in review of the chart prior to signing ED Disposition - Plan for ED Patient: Instructions: ED Laceration: All Closures Referrals: Kym Heard MD [Primary Care Provider] - 10 Day for suture removal
[2021-02-16 17:32] LABS: Absolute Lymphocyte Count 1.74 X10^3/uL (0.83-4.51); Absolute Neutrophil Count 6.5 X10^3/uL (2.0-7.7); Basophil# 0.03 X10^3/uL; Basophil% 0.3 % (0-1); Eosinophil# 0.13 X10^3/uL; Eosinophils% 1.4 % (0-5); Hemoglobin 13.4 g/dL (12.0-15.0); Lymphocyte # 1.74 X10^3/ul (4.0); Lymphocyte % 18.6 % (19-41); Mean Corp Hgb Conc 33.5 g/dL (32-36); Mean Corpuscular Hgb 31.6 pg (27.0-32.0); Mean Corpuscular Volume 94.3 fL (81-99); Monocyte# 0.92 X10^3/uL; Monocyte% 9.8 % (0-10); NRBC Flagged by Analyzer 0 % (0-5); Neutrophil # 6.51 X10^3/uL (2.7-7.7); Neutrophil % 69.4 % (47-70); Platelet Count 340 K/mm3 (150-450); RBC Distribution Width CV 13.6 % (11.6-14.6); Red Blood Count 4.24 M/mm3 (4.2-5.4); White Blood Count 9.4 K/mm3 (4.4-11.0)
[2021-02-16 17:44] LABS: Anion Gap 7 (5-15); BUN 17 mg/dL (7-18); BUN/Creat Ratio 18.7 RATIO (10-20); Chloride 105 mmol/L (98-107); Creatinine, Serum 0.91 mg/dL (0.55-1.02); EST Glomerular Filtration Rate 69 mL/min (>60); Est Glom Filt Rate - Afr Amer 84 mL/min (>60); Estimated Creatinine Clearance 65.81 ml/min; Glucose 89 mg/dL (74-106); Potassium 3.7 mmol/L (3.5-5.1); Sodium Level 136 mmol/L (136-145)
--- NOTE | 2021-02-16 18:02 | ED.RN ---
consent for treatment obtained via phone with guardian Cindy. second nurse verify was Precious Perez RN
[2021-02-16] MEDS: Lidocaine 1% (20 ml mdv) 20 ML Vial INFILT (18:21)
[2021-02-16 18:39] LABS: Valproic Acid (Depakene) Level 79 ug/mL (50-100)
== END 2021-02-16 19:08 | disposition home or self-care (01) ==
PROVIDERS: Emergency Provider Emergency Medicine; PCP Internal Medicine
DX: S01.01XA Laceration without foreign body of scalp, initial encounter (principal); W18.09XA Striking against other object with subsequent fall, initial encounter; Y93.9 Activity, unspecified; Y92.193 Bedroom in other specified residential institution as the place of occurrence of the external cause; Y99.8 Other external cause status; Z23 Encounter for immunization; F79 Unspecified intellectual disabilities
CPT/HCPCS: 12002; 80048; 80164; 85025; 99283

== ENCOUNTER 2021-11-22 11:44 | Emergency (ER) | payer MEDICARE, MEDICAID, SELFPAY ==
[2021-11-22 11:46] VITALS: PULSE 81; RESP 16; TEMP 36.4; O2SAT 96; BMI 25.8
[2021-11-22 11:49] VITALS: BP 96/62; PULSE 88; RESP 15; TEMP 36.4; O2SAT 95
--- NOTE | 2021-11-22 12:43 | EKG12_ITS ---
Test Reason : ALTERED LOC Blood Pressure : / mmHG Vent. Rate : 076 BPM Atrial Rate : 076 BPM P-R Int : 104 ms QRS Dur : 084 ms QT Int : 368 ms P-R-T Axes : 056 061 051 degrees QTc Int : 414 ms Sinus rhythm with short LA Otherwise normal ECG Confirmed by VICTORINA SNOW, MALAIKA ([id number]), general expeditor PHAN TANG ([id number]) on 11/25/2021 10:36:15 AM Referred By: AUDI Confirmed By:MALAIKA PRAJAPATI MD
--- NOTE | 2021-11-22 12:44 | EDS_ITS ---
HPI History of Present Illness Chief Complaint: Alt LOC Narrative Narrative: 51-year-old female with history of MR, bipolar disorder, seizure disorder presenting for evaluation from her custodial. She is presenting with her caregiver who states that she has been generally weak. She has been sleeping a lot more. She has decreased p.o. intake. Patient has had a low- grade fever and has been responding to Tylenol. Patient does ambulate with a walker at baseline but has not been walking very much due to having COVID-19. She was diagnosed with this on the after there were exposed at the custodial. Patient does not appear to be short of breath. She has not been hypoxic. She is not expressing that she has any chest pain. PFSH PFS Home Medications buspirone 20 mg PO TID 08/27/14 [History Last Taken 09/08/20] escitalopram oxalate 10 mg PO DAILY 08/27/14 [History Last Taken 09/08/20] polyethylene glycol 3350 17 g PO QODAY 08/27/14 [History Last Taken 12/04/18 17 GM] lorazepam 1 mg PO DAILY@1200 04/16/17 [History Last Taken 09/08/20] divalproex 1,125 mg PO BID 04/20/18 [History Last Taken 09/08/20] esomeprazole magnesium [Nexium] 20 mg PO DAILY 04/20/18 [History Last Taken 09/08/20] levetiracetam 20 ml PO BID 04/20/18 [History Last Taken 09/08/20] oxybutynin chloride 5 mg PO BID 04/20/18 [History Last Taken 09/08/20] multivitamin with iron [Multivitamins with Iron] 1 ea PO DAILY 05/17/18 [History Last Taken 09/08/20] Cholecalciferol (Vitamin D3) [Vitamin D3] 25 mcg PO DAILY 09/08/20 [History Last Taken 09/08/20] Potassium Chloride 10 meq PO DAILY 09/08/20 [History Last Taken 09/08/20] Ziprasidone Hcl 20 mg PO QHS 09/08/20 [History Last Taken 09/07/20] calcium carbonate 500 mg PO DAILY@0800 09/08/20 [History Last Taken 09/08/20] electrolytes-dextrose 180 ml PO TID 09/08/20 [History Last Taken 09/08/20] lamotrigine 25 mg PO BID 09/08/20 [History Last Taken 09/08/20] lamotrigine 100 mg PO DAILY 09/08/20 [History Last Taken 09/08/20] norgestimate-ethinyl estradiol 1 tab PO DAILY 09/08/20 [History Last Taken 09/08/20] ziprasidone HCl 80 mg PO QHS 09/08/20 [History Last Taken 09/07/20] amlodipine 10 mg PO DAILY 11/27/20 [History Last Taken Unknown] Allergy/AdvReac Type Severity Reaction Status Date / Time Penicillins Allergy Unknown Verified 02/16/21 16:11 Social History Smoking Status: Never smoker ROS ROS ED Review of Systems ROS Unobtainable: due to mental status EXAM Physical Exam Const Vital Signs: 11/22/21 11:46 11/22/21 11:49 11/22/21 12:49 Temperature 97.6 F L 97.6 F L 97.6 F L Temperature Source Temporal Temporal Temporal Pulse Rate 81 88 88 Respiratory Rate 16 15 15 Respiratory Effort Normal Non-Labored Respiratory Pattern Normal Blood Pressure 96/62 96/62 Blood Pressure Mean 73 73 Pulse Ox 96 95 95 Oxygen Delivery Method Room Air Room Air Room Air 11/22/21 13:00 11/22/21 15:06 Temperature 97.9 F Temperature Source Temporal Pulse Rate 78 84 Respiratory Rate 16 20 H Respiratory Effort Respiratory Pattern Blood Pressure 127/66 H 116/70 Blood Pressure Mean 86 Pulse Ox 99 97 Oxygen Delivery Method Room Air Positive well nourished General Appearance ED: NAD; Negative for pallor HEENT Reports dry mucous membranes normocephalic and atraumatic Mouth ED: Yes dry mucous membranes Mouth: dry mucous membranes Eyes PERRL and EOMs intact bilaterally Neck supple and no meningeal signs Resp normal respiratory effort Auscultation: clear to auscultation bilaterally Cardio regular rate and regular rhythm GI non-tender and non-distended Palpation: soft Neuro CN's II-XII intact bilaterally and moves all extremities Sensorium / Orientation: alert Skin General Skin Exam: Negative for jaundice or pallor MDM MDM MDM Narrative Medical decision making narrative: Patient presenting for evaluation due to decreased eating and drinking and sleeping more due to COVID-19. EKG is obtained which shows a sinus rhythm with a ventricular rate of 76 bpm. Chest x- ray on my interpretation shows right lower lobe pneumonia. Patient has known COVID-19 this is likely source. The radiologist that this could be a mass. Blood work shows that she has no leukocytosis and she is not leukopenic. Renal function and electrolytes are normal. Right patient has no signs of renal azotemia however. High-sensitivity troponin is 9. Urinalysis negative for infection. Patient has normal vital signs and is oxygenating at 96 to 97%. Her pulse is 81-84. Respiratory 16-20. At this point I feel she is safe to be discharged home. I counseled the caregiver that she would need to encourage oral hydration and she states that they do have Zofran for her at the custodial. Her Depakote level was a little high I discussed this with the caregiver I recommended holding a couple of doses and then rechecking before restarting her medication. She acknowledged understanding of this. I do believe she is safe to be discharged back to the custodial Impression: 1. History of COVID-19 2. Elevated valproic acid Lab Data Labs: Laboratory Results - last 24 hr 11/22/21 11/22/21 11/22/21 13:00 13:00 13:00 WBC 9.6 RBC 3.82 L Hgb 12.8 Hct 36.6 L MCV 95.8 MCH 33.5 H MCHC 35.0 RDW Std Deviation 45.8 H RDW Coeff of Taylor 13.0 Plt Count 234 MPV 9.6 Immature Gran % (Auto) 0.600 Neut % (Auto) 74.6 H Lymph % (Auto) 14.5 L [place] % (Auto) 9.8 Eos % (Auto) 0.4 Baso % (Auto) 0.1 Absolute Neuts (auto) 7.1 Absolute Lymphs (auto) 1.39 Nucleated RBC % 0 Sodium 147 H Potassium 3.6 Chloride 116 H Carbon Dioxide 26.0 Anion Gap 5 BUN 30 H Creatinine 0.79 Estim Creat Clear Calc 76.27 Est GFR (MDRD) Af Amer 98 Est GFR (MDRD) Non-Af 81 BUN/Creatinine Ratio 37.9 H Glucose 77 Calcium 9.2 Total Bilirubin 0.40 AST 29 ALT 15 Alkaline Phosphatase 82 Troponin I High Sens 9 Total Protein 7.0 Albumin 1.8 L Globulin 5.2 H Albumin/Globulin Ratio 0.3 L Urine Color Urine Clarity Urine pH Ur Specific [place] Urine Protein Urine Glucose (UA) Urine Ketones Urine Occult Blood Urine Nitrite Urine Bilirubin Urine Urobilinogen Ur Leukocyte Esterase Urine RBC Urine WBC Ur Squamous Epith Cells Amorphous Sediment Urine Bacteria Urine Mucus Valproic Acid 136 H 11/22/21 13:35 WBC RBC Hgb Hct MCV MCH MCHC RDW Std Deviation RDW Coeff of Taylor Plt Count MPV Immature Gran % (Auto) Neut % (Auto) Lymph % (Auto) [place] % (Auto) Eos % (Auto) Baso % (Auto) Absolute Neuts (auto) Absolute Lymphs (auto) Nucleated RBC % Sodium Potassium Chloride Carbon Dioxide Anion Gap BUN Creatinine Estim Creat Clear Calc Est GFR (MDRD) Af Amer Est GFR (MDRD) Non-Af BUN/Creatinine Ratio Glucose Calcium Total Bilirubin AST ALT Alkaline Phosphatase Troponin I High Sens Total Protein Albumin Globulin Albumin/Globulin Ratio Urine Color Yellow Urine Clarity Cloudy Urine pH 7.0 Ur Specific [place] 1.010 Urine Protein 15 H Urine Glucose (UA) Normal Urine Ketones 5 H Urine Occult Blood Negative Urine Nitrite Negative Urine Bilirubin Negative Urine Urobilinogen 8 H Ur Leukocyte Esterase 100 H Urine RBC 0 SEEN Urine WBC 0-5 SEEN Ur Squamous Epith Cells 0-5 SEEN Amorphous Sediment 1+ Urine Bacteria 2+ Urine Mucus 1+ Valproic Acid Radiography Diagnostic Testing: Clinical Impression(s) from Imaging Studies Chest X-Ray 11/22/21 13:16 IMPRESSION: Suspect right lower lobe pneumonia or mass. Correlation with CT with contrast would be useful. Electronically Signed: Juancarlos Iqbal MD at 13:57 EST Tel , Service support , Discharge Plan Triage Chief Complaint: Alt LOC ED Provider: Nicolas Frausto Dx/Rx/DC Orders Instructions: Coronavirus Disease 2019 (COVID-19): Caring for Yourself or Others, ED Dehydration (Adult) Prescriptions: No Action polyethylene glycol 3350 17 GM Packet 17 g PO QODAY RF: 0 buspirone 10 MG tablet 20 mg PO TID RF: 0 escitalopram oxalate 10 MG tablet 10 mg PO DAILY RF: 0 lorazepam 1 MG tablet 1 mg PO DAILY@1200 RF: 0 oxybutynin chloride 5 MG tablet 5 mg PO BID RF: 0 esomeprazole magnesium [Nexium] 20 MG capsule 20 mg PO DAILY RF: 0 levetiracetam 100 MG/ML Solution 20 ml PO BID RF: 0 divalproex 125 MG Sprinkle 1,125 mg PO BID RF: 0 multivitamin with iron [Daily Multiple Vitamins/Iron] 1 EACH tablet 1 ea PO DAILY RF: 0 ziprasidone HCl 80 MG capsule 80 mg PO QHS RF: 0 norgestimate-ethinyl estradiol 1 EACH tablet 1 tab PO DAILY RF: 0 calcium carbonate 500 MG tablet 500 mg PO DAILY@0800 RF: 0 electrolytes-dextrose 1,000 ML solution 180 ml PO TID RF: 0 lamotrigine 100 MG tablet,disintegrating 100 mg PO DAILY RF: 0 lamotrigine 25 MG tablet,disintegrating 25 mg PO BID RF: 0 Cholecalciferol (Vitamin D3) [Vitamin D3] 25 MCG tablet 25 mcg PO DAILY RF: 0 Potassium Chloride 10 MEQ Capsule.Er 10 meq PO DAILY RF: 0 Ziprasidone Hcl 20 MG capsule 20 mg PO QHS RF: 0 amlodipine 10 MG tablet 10 mg PO DAILY RF: 0 Primary Care Provider: Kym Heard Referrals: Kym Heard MD [Primary Care Provider] - Activity Restrictions/Additional Instructions: Alternate Tylenol and ibuprofen for fevers and chills. Encourage fluids. Disposition Disposition: Home, Self Care
[2021-11-22 12:49] VITALS: BP 96/62; PULSE 88; RESP 15; TEMP 36.4; O2SAT 95
[2021-11-22 13:00] VITALS: BP 127/66; PULSE 78; RESP 16; TEMP 36.6; O2SAT 99
[2021-11-22 13:08] LABS: Absolute Lymphocyte Count 1.39 X10^3/uL (0.83-4.51); Absolute Neutrophil Count 7.1 X10^3/uL (2.0-7.7); Basophil# 0.01 X10^3/uL; Basophil% 0.1 % (0-1); Eosinophil# 0.04 X10^3/uL; Eosinophils% 0.4 % (0-5); Hematocrit 36.6 % (37-47); Hemoglobin 12.8 g/dL (12.0-15.0); Lymphocyte # 1.39 X10^3/ul (0.83-4.51); Lymphocyte % 14.5 % (19-41); Mean Corpuscular Hgb 33.5 pg (27.0-32.0); Mean Corpuscular Volume 95.8 fL (81-99); Mean Platelet Vol. 9.6 fl (6.2-12.0); Monocyte# 0.94 X10^3/uL; Monocyte% 9.8 % (0-10); NRBC Flagged by Analyzer 0 % (0-5); Neutrophil # 7.13 X10^3/uL (2.7-7.7); Neutrophil % 74.6 % (47-70); Platelet Count 234 K/mm3 (150-450); RBC Distribution Width SD 45.8 fl (35.1-43.9); Red Blood Count 3.82 M/mm3 (4.2-5.4); White Blood Count 9.6 K/mm3 (4.4-11.0)
--- NOTE | 2021-11-22 13:16 | RAD_ITS ---
STUDY: X-RAY CHEST REASON FOR EXAM: Female, 51 years old. cough TECHNIQUE: Single AP portable view of the chest. COMPARISON: 09/08/2020 FINDINGS: Focal alveolar opacity in the lower right lung consistent with right lower lobe pneumonia or less likely mass. There is no demonstrated pleural abnormality. Normal size heart. Normal mediastinum and noah. Normal visualized pulmonary arteries. Normal visualized aortic arch and descending thoracic aorta. Normal visualized thoracic spine. Normal visualized ribs, clavicles, and shoulders. There is no demonstrated abnormality of the visualized soft tissue structures of the upper abdomen. RAD/Chest 1 View (Portable) IMPRESSION: Suspect right lower lobe pneumonia or mass. Correlation with CT with contrast would be useful. Electronically Signed: Juancarlos Iqbal MD at 13:57 EST Tel , Service support ,
[2021-11-22 13:24] LABS: ALB/GLOB Ratio 0.3 RATIO (0.9-2.4); AST(SGOT) 29 U/L (15-37); Alanine Aminotransfer ALT/SGPT 15 U/L (13-56); Albumin, Serum 1.8 g/dL (3.2-5.0); Alkaline Phosphatase 82 U/L (45-117); Anion Gap 5 (5-15); BUN 30 mg/dL (7-18); BUN/Creat Ratio 37.9 RATIO (10-20); Calcium,Total 9.2 mg/dL (8.5-10.1); Chloride 116 mmol/L (98-107); Creatinine, Serum 0.79 mg/dL (0.55-1.02); EST Glomerular Filtration Rate 81 mL/min (>60); Est Glom Filt Rate - Afr Amer 98 mL/min (>60); Estimated Creatinine Clearance 76.27 ml/min; Globulin 5.2 g/dL (2.2-4.2); Glucose 77 mg/dL (74-106); Potassium 3.6 mmol/L (3.5-5.1); Sodium Level 147 mmol/L (136-145); Troponin-I HS 9 pg/mL (3.0-54.0)
[2021-11-22 13:43] LABS: Red Blood Cells-Urine 0 SEEN /hpf (0-5)
[2021-11-22 13:47] LABS: Color, Urine Yellow (Yellow); Glucose, Dipstick Normal (Normal); Ketone-Dipstick 5 mg/dl (Negative); Leukocyte Esterase-Dipstick 100 /ul (Negative); Nitrite-Dipstick Negative (Negative); Occult Blood-Urine Negative /ul (Negative); Protein-Dipstick 15 mg/dl (Negative); Urine Bilirubin Dipstick Negative (Negative); Urine Clarity Cloudy (Clear); Urine Urobilinogen 8 mg/dl (Normal)
[2021-11-22 13:52] LABS: Valproic Acid (Depakene) Level 136 ug/mL (50-100)
[2021-11-22 14:00] LABS: Amorphous Sediment 1+; Bacteria 2+ /hpf (None Seen); Mucous, Urine 1+ /hpf (<or=2+); Squamous Epithelial Cells - UA 0-5 SEEN /hpf (5-10); White Blood Cells 0-5 SEEN /hpf (0-5)
[2021-11-22 15:06] VITALS: BP 116/70; PULSE 84; RESP 20; O2SAT 97
--- NOTE | 2021-11-22 15:07 | ED.RN ---
THIS NURSE REVIEWED D/C INSTRUCTIONS WITH CUSTODIAL STAFF. STAFF VERBALIZED UNDERSTANDING OF INSTRUCTIONS. IV D/C. IV CATHETER INTACT. PT TOLERATED WELL.
== END 2021-11-22 15:21 | disposition home or self-care (01) ==
PROVIDERS: Emergency Provider Student in an Organized Health Care Education/Training Program; PCP Internal Medicine; Visit Provider Student in an Organized Health Care Education/Training Program
DX: R50.9 Fever, unspecified (principal); F31.9 Bipolar disorder, unspecified; G40.909 Epilepsy, unspecified, not intractable, without status epilepticus; Z86.16 Personal history of COVID-19
CPT/HCPCS: 71045; 80053; 80164; 81001; 84484; 85025; 93005; 99285; A4216

== ENCOUNTER 2021-11-30 14:12 | Inpatient (IN) | payer MEDICARE, MEDICAID, SELFPAY ==
[2021-11-30] VITALS (9 sets, daily range): BP systolic 121–150; BP diastolic 62–118; PULSE 86–109; RESP 15–28; TEMP 36.3–37.1; O2SAT 96–99; BMI 24.2; BMI 24.6
--- NOTE | 2021-11-30 14:54 | EKG12_ITS ---
Test Reason : ALT LOC Blood Pressure : / mmHG Vent. Rate : 115 BPM Atrial Rate : 115 BPM P-R Int : 120 ms QRS Dur : 080 ms QT Int : 314 ms P-R-T Axes : 057 058 048 degrees QTc Int : 434 ms Sinus tachycardia Otherwise normal ECG Confirmed by VICTORINA SNOW, MALAIKA ([id number]), art editor PHAN TANG ([id number]) on 12/01/2021 2:11:12 PM Referred By: NAZ/COLLEEN Confirmed By:MALAIKA PRAJAPATI MD
--- NOTE | 2021-11-30 14:56 | EX.ED.DYSGE1 ---
HPI History of Present Illness Chief Complaint: Alt LOC Narrative Narrative: History and physical is limited secondary to MRDD/cerebral palsy/patient condition. Per director of group sales, patient presents to the emergency department with decreased mental status. She states that over the last week to week and a half patient has had a decline in her mental status and generalized weakness. She was seen in the emergency department 8 days ago and discharged. Patient was able to go to work on , 5 days ago, but was sent home because she was weight. She has not been getting up out of bed and has been more nonverbal. No fevers or chills. No nausea or vomiting. No diarrhea. PFSH PFSH Home Medications buspirone 20 mg PO TID 08/27/14 [History Last Taken 09/08/20] escitalopram oxalate 10 mg PO DAILY 08/27/14 [History Last Taken 09/08/20] polyethylene glycol 3350 17 g PO QODAY 08/27/14 [History Last Taken 12/04/18 17 GM] lorazepam 1 mg PO DAILY@1200 04/16/17 [History Last Taken 09/08/20] divalproex 1,125 mg PO BID 04/20/18 [History Last Taken 09/08/20] esomeprazole magnesium [Nexium] 20 mg PO DAILY 04/20/18 [History Last Taken 09/08/20] levetiracetam 20 ml PO BID 04/20/18 [History Last Taken 09/08/20] oxybutynin chloride 5 mg PO BID 04/20/18 [History Last Taken 09/08/20] multivitamin with iron [Multivitamins with Iron] 1 ea PO DAILY 05/17/18 [History Last Taken 09/08/20] Cholecalciferol (Vitamin D3) [Vitamin D3] 25 mcg PO DAILY 09/08/20 [History Last Taken 09/08/20] Potassium Chloride 10 meq PO DAILY 09/08/20 [History Last Taken 09/08/20] Ziprasidone Hcl 20 mg PO QHS 09/08/20 [History Last Taken 09/07/20] calcium carbonate 500 mg PO DAILY@0800 09/08/20 [History Last Taken 09/08/20] electrolytes-dextrose 180 ml PO TID 09/08/20 [History Last Taken 09/08/20] lamotrigine 25 mg PO BID 09/08/20 [History Last Taken 09/08/20] lamotrigine 100 mg PO DAILY 09/08/20 [History Last Taken 09/08/20] norgestimate-ethinyl estradiol 1 tab PO DAILY 09/08/20 [History Last Taken 09/08/20] ziprasidone HCl 80 mg PO QHS 09/08/20 [History Last Taken 09/07/20] amlodipine 10 mg PO DAILY 11/27/20 [History Last Taken Unknown] Allergy/AdvReac Type Severity Reaction Status Date / Time Penicillins Allergy Unknown Verified 02/16/21 16:11 Social History Smoking Status: Never smoker ROS ROS ED ROS Narrative Review of systems obtained from director of group sales, unable to obtain from patient. Constitutional: No fever, no chills. HEENT: No sore throat. No neck pain. No loss of vision. No rhinorrhea. Cardiovascular: No chest pain. No palpitations. No pedal edema. Respiratory: No cough, no shortness of breath. Abdominal: No abdominal pain. No nausea. No vomiting. Genitourinary: No dysuria. No hematuria. Musculoskeletal: No myalgias. No arthralgias. Neurologic: Decreased mental status. Less verbal. Less activity. Skin: No rash. No change in color. Psychiatric: No depression. No anxiety. EXAM Physical Exam Narrative Exam Narrative: Afebrile. Vital signs noted. HEENT: PERRL, EOMI. Neck soft and supple. No point tenderness or step off. Cardiovascular: Regular rate and rhythm. No murmurs, rubs, or gallops appreciated. Respiratory: No tachypnea. Lungs clear to auscultation bilaterally. Gastrointestinal: Abdomen soft, nontender, with normoactive bowel sounds. No rebound or guarding. Neurological: Awake. Consistent with MRDD/CP. Skin: No rash. Normal color. No pallor. Musculoskeletal: No pedal edema. Full range of motion extremities. Const Vital Signs: 11/30/21 14:15 11/30/21 14:41 11/30/21 14:42 Temperature 98.8 F 98.8 F Temperature Source Axillary Axillary Pulse Rate 109 H 104 H Respiratory Rate 28 H 20 H Respiratory Effort Normal Non-Labored Respiratory Pattern Normal Blood Pressure 150/102 H 134/82 H Blood Pressure Mean 118 99 Pulse Ox 96 97 Oxygen Delivery Method Room Air Room Air 11/30/21 15:52 11/30/21 16:15 11/30/21 17:35 Temperature 98.7 F 97.8 F Temperature Source Temporal Temporal Pulse Rate 89 89 Respiratory Rate 15 15 Respiratory Effort Respiratory Pattern Blood Pressure 121/62 H 145/72 H Blood Pressure Mean 81 96 Pulse Ox 98 97 99 Oxygen Delivery Method Room Air Room Air Room Air 11/30/21 17:37 Temperature 97.8 F Temperature Source Temporal Pulse Rate 89 Respiratory Rate 17 Respiratory Effort Respiratory Pattern Blood Pressure 145/72 H Blood Pressure Mean 96 Pulse Ox 99 Oxygen Delivery Method Room Air MDM MDM MDM Narrative Medical decision making narrative: Comprehensive work-up was pursued. EKG demonstrates sinus tachycardia at [address] changes. She does have an elevated white count of 15.0, hemoglobin stable at 11.6, platelet count normal. INR is 2.0. Lactic acid is normal at 1.3. Sepsis work-up was pursued with cultures pending. She does have an elevated sodium of 147 with a chloride of 116 with a creatinine of 1.69 more consistent with dehydration. Urinalysis is positive for nitrites with 10-25 WBCs. Urine culture is pending. As she has allergy is to penicillins she was started on ciprofloxacin intravenously. Her chest x-ray shows a possible nodule versus pneumonia. Her pulse ox is 99% on room air. Regardless she has been treated with Rocephin. I do not feel emergent CT scan is indicated. In discussion with the director of group sales, guardian has sent her in and would like her placed as they are unable to care for her in the halfway given her decreased activity/lethargy. I discussed patient with Dr. Savage for admission. She is in stable condition. Lab Data Attestation: I reviewed the patient's lab results. Labs: Laboratory Results - last 24 hr 11/30/21 11/30/21 11/30/21 14:20 14:20 14:20 WBC 15.0 H RBC 3.55 L Hgb 11.6 L Hct 36.4 L MCV 102.5 H MCH 32.7 H MCHC 31.9 L RDW Std Deviation 55.2 H RDW Coeff of Taylor 14.7 H Plt Count 357 MPV 10.2 Immature Gran % (Auto) 1.800 H Neut % (Auto) 80.8 H Lymph % (Auto) 9.6 L [place] % (Auto) 7.4 Eos % (Auto) 0.1 Baso % (Auto) 0.3 Absolute Neuts (auto) 12.1 H Absolute Lymphs (auto) 1.44 Nucleated RBC % 0 PT 22.2 H INR 2.0 APTT 41.4 H Sodium 147 H Potassium 4.6 Chloride 116 H Carbon Dioxide 26.0 Anion Gap 5 BUN 55 H Creatinine 1.69 H Estim Creat Clear Calc 33.46 Est GFR (MDRD) Af Amer 41 L Est GFR (MDRD) Non-Af 34 L BUN/Creatinine Ratio 32.5 H Glucose 85 Lactic Acid Calcium 9.8 Total Bilirubin 0.50 AST 72 H ALT 43 Alkaline Phosphatase 98 Total Protein 7.8 Albumin 1.6 L Globulin 6.2 H Albumin/Globulin Ratio 0.3 L Urine Color Urine Clarity Urine pH Ur Specific [place] Urine Protein Urine Glucose (UA) Urine Ketones Urine Occult Blood Urine Nitrite Urine Bilirubin Urine Urobilinogen Ur Leukocyte Esterase Urine RBC Urine WBC Ur Squamous Epith Cells Urine Bacteria Urine Mucus 11/30/21 11/30/21 16:08 16:21 WBC RBC Hgb Hct MCV MCH MCHC RDW Std Deviation RDW Coeff of Taylor Plt Count MPV Immature Gran % (Auto) Neut % (Auto) Lymph % (Auto) [place] % (Auto) Eos % (Auto) Baso % (Auto) Absolute Neuts (auto) Absolute Lymphs (auto) Nucleated RBC % PT INR APTT Sodium Potassium Chloride Carbon Dioxide Anion Gap BUN Creatinine Estim Creat Clear Calc Est GFR (MDRD) Af Amer Est GFR (MDRD) Non-Af BUN/Creatinine Ratio Glucose Lactic Acid 1.3 Calcium Total Bilirubin AST ALT Alkaline Phosphatase Total Protein Albumin Globulin Albumin/Globulin Ratio Urine Color [place] Urine Clarity Sl. Cloudy Urine pH 6.0 Ur Specific [place] 1.020 Urine Protein 30 H Urine Glucose (UA) Normal Urine Ketones 15 H Urine Occult Blood 150 H Urine Nitrite Positive H Urine Bilirubin 1 H Urine Urobilinogen 8 H Ur Leukocyte Esterase 25 H Urine RBC 0-5 SEEN Urine WBC 10-25 SEEN Ur Squamous Epith Cells 0 SEEN Urine Bacteria 3+ Urine Mucus 0 SEEN Radiography Diagnostic Testing: Clinical Impression(s) from Imaging Studies Chest X-Ray 11/30/21 15:48 IMPRESSION: Question nodularity in the right lower lobe. This may be related to pneumonia Mass is not excluded. Recommend CT chest. Electronically Signed: Erick Mccarthy MD at 16:14 EST , Service support , Discharge Plan Dx/Rx/DC Orders Clinical Impression: Lethargy, Acute alteration in mental status, UTI (urinary tract infection) Disposition Disposition: Acute Care Hospital [facility]
[2021-11-30 15:31] LABS: Absolute Lymphocyte Count 1.44 X10^3/uL (0.83-4.51); Absolute Neutrophil Count 12.1 X10^3/uL (2.0-7.7); Basophil# 0.05 X10^3/uL; Basophil% 0.3 % (0-1); Eosinophil# 0.02 X10^3/uL; Eosinophils% 0.1 % (0-5); Hematocrit 36.4 % (37-47); Hemoglobin 11.6 g/dL (12.0-15.0); Lymphocyte # 1.44 X10^3/ul (0.83-4.51); Lymphocyte % 9.6 % (19-41); Mean Corp Hgb Conc 31.9 g/dL (32-36); Mean Corpuscular Hgb 32.7 pg (27.0-32.0); Mean Corpuscular Volume 102.5 fL (81-99); Mean Platelet Vol. 10.2 fl (6.2-12.0); Monocyte# 1.11 X10^3/uL; Monocyte% 7.4 % (0-10); NRBC Flagged by Analyzer 0 % (0-5); Neutrophil # 12.14 X10^3/uL (2.7-7.7); Neutrophil % 80.8 % (47-70); Platelet Count 357 K/mm3 (150-450); RBC Distribution Width CV 14.7 % (11.6-14.6); RBC Distribution Width SD 55.2 fl (35.1-43.9); Red Blood Count 3.55 M/mm3 (4.2-5.4)
[2021-11-30 15:43] LABS: Prothrombin Time (Protime)PT. 22.2 SECONDS (11.7-14.9)
[2021-11-30 15:44] LABS: Partial Thromboplast Time 41.4 Seconds (24.1-36.2)
--- NOTE | 2021-11-30 15:48 | RAD_ITS ---
STUDY: X-RAY CHEST REASON FOR EXAM: Female, 51 years old. CHEST PAIN cad TECHNIQUE: XR Chest 1 View COMPARISON: 1.2.22 FINDINGS: There is no demonstrated pleural abnormality. There is an elevated right hemidiaphragm. Question nodularity in the right lower lobe. Mass is not excluded. Recommend CT chest. Normal size heart. Normal mediastinum and noah. Normal visualized pulmonary arteries. Normal visualized aortic arch and descending thoracic aorta. Normal visualized thoracic spine. Normal visualized ribs, clavicles, and shoulders. There is no demonstrated abnormality of the visualized soft tissue structures of the upper abdomen. RAD/Chest 1 View (Portable) IMPRESSION: Question nodularity in the right lower lobe. This may be related to pneumonia Mass is not excluded. Recommend CT chest. Electronically Signed: Erick Mccarthy MD at 16:14 EST , Service support ,
[2021-11-30 15:50] LABS: ALB/GLOB Ratio 0.3 RATIO (0.9-2.4); AST(SGOT) 72 U/L (15-37); Alanine Aminotransfer ALT/SGPT 43 U/L (13-56); Albumin, Serum 1.6 g/dL (3.2-5.0); Alkaline Phosphatase 98 U/L (45-117); Anion Gap 5 (5-15); BUN 55 mg/dL (7-18); BUN/Creat Ratio 32.5 RATIO (10-20); Calcium,Total 9.8 mg/dL (8.5-10.1); Chloride 116 mmol/L (98-107); Creatinine, Serum 1.69 mg/dL (0.55-1.02); EST Glomerular Filtration Rate 34 mL/min (>60); Est Glom Filt Rate - Afr Amer 41 mL/min (>60); Estimated Creatinine Clearance 33.46 ml/min; Globulin 6.2 g/dL (2.2-4.2); Glucose 85 mg/dL (74-106); Potassium 4.6 mmol/L (3.5-5.1); Protein, Total 7.8 g/dL (6.4-8.2); Sodium Level 147 mmol/L (136-145)
[2021-11-30] MEDS: 0.9% Normal Saline 1,000 ML 999 ML IV (16:15)
[2021-11-30 16:29] LABS: Mucous, Urine 0 SEEN /hpf (<or=2+); Squamous Epithelial Cells - UA 0 SEEN /hpf (5-10)
[2021-11-30 16:35] LABS: Color, Urine Amber (Yellow); Glucose, Dipstick Normal (Normal); Ketone-Dipstick 15 mg/dl (Negative); Leukocyte Esterase-Dipstick 25 /ul (Negative); Nitrite-Dipstick Positive (Negative); Occult Blood-Urine 150 /ul (Negative); Protein-Dipstick 30 mg/dl (Negative); Urine Clarity Sl. Cloudy (Clear); Urine Urobilinogen 8 mg/dl (Normal)
[2021-11-30 16:43] LABS: Lactic Acid 1.3 mmol/L (0.4-1.9)
[2021-11-30 16:43] LABS: Urine Bilirubin Dipstick 1 mg/dL (Negative)
[2021-11-30 16:44] LABS: Red Blood Cells-Urine 0-5 SEEN /hpf (0-5)
[2021-11-30 16:45] LABS: Bacteria 3+ /hpf (None Seen); White Blood Cells 10-25 SEEN /hpf (0-5)
--- NOTE | 2021-11-30 17:13 | HP.PCM.HOS_ITS ---
HPI - General General Date of Admission: 11/30/21 Date of Service: 11/30/21 Chief Complaint: COVID +, Dx 11/18/21, worsening mental status decline. HPI Narrative The patient is a 51 y/o F w/ PMHx: Dementia unclear type with unclear behavioral disturbance history, Anxiety and Depression/Bipolar disorder, Seizure disorder, HTN, GERD who presents to the [facility] ED on 11/30/21 with history of noted decline over the last year as patient transition from a different section of the senior care to her current; however, since diagnosis with COVID on 11/18/2021 patient has been significantly more weak, fatigued with notable malaise and lethargy mor e severe over the last 48 hours not drinking or eating much and difficult to arouse prompting eventual ED evaluation. Patient has not been hypoxic with COVID. From discussion with senior care staff patient is normally able to converse somewhat and is verbal but does have underlying MRDD therefore d ifficulty with interactions baseline. care home staff notes that patient's last seizure was in June. Work-up in the ED included T98.8, heart rate 109, BP 150/102 initially with most recent repeat 121/62, respiratory rate 28, 96% on room air, CBC with WC 15, hemoglobin 11.6, MCV 102.5, platelets 357 with left shift, coags with PT 22.2, INR 2.0, PTT 41.4, CMP with sodium 147, chloride 116, BUN/creatinine 55/1.69, lactic acid 1.3, total bilirubin 0.50, AST/ALT 72/43, urinalysis with specific gravity elevation 1.020, positive nitrite, leukocyte esterase 25, urine WBCs 10-25 with 3+ urine bacteria, chest x-ray with questionable nodularity right lower lobe, blood culture x2 pending per ED, urine culture pending per ED. In the ED patient ministered normal saline and ciprofloxacin. [facility] Medical History (Updated 11/30/21 @ 17:[address] Jelly Savage MD) Bipolar disorder Dementia Hypertension Mental retardation Seizures Home Medications buspirone 20 mg PO TID 08/27/14 [History Last Taken 09/08/20] escitalopram oxalate 10 mg PO DAILY 08/27/14 [History Last Taken 09/08/20] polyethylene glycol 3350 17 g PO QODAY 08/27/14 [History Last Taken 12/04/18 17 GM] lorazepam 1 mg PO DAILY@1200 04/16/17 [History Last Taken 09/08/20] divalproex 1,125 mg PO BID 04/20/18 [History Last Taken 09/08/20] esomeprazole magnesium [Nexium] 20 mg PO DAILY 04/20/18 [History Last Taken 09/08/20] levetiracetam 20 ml PO BID 04/20/18 [History Last Taken 09/08/20] oxybutynin chloride 5 mg PO BID 04/20/18 [History Last Taken 09/08/20] multivitamin with iron [Multivitamins with Iron] 1 ea PO DAILY 05/17/18 [History Last Taken 09/08/20] Cholecalciferol (Vitamin D3) [Vitamin D3] 25 mcg PO DAILY 09/08/20 [History Last Taken 09/08/20] Potassium Chloride 10 meq PO DAILY 09/08/20 [History Last Taken 09/08/20] Ziprasidone Hcl 20 mg PO QHS 09/08/20 [History Last Taken 09/07/20] calcium carbonate 500 mg PO DAILY@0800 09/08/20 [History Last Taken 09/08/20] electrolytes-dextrose 180 ml PO TID 09/08/20 [History Last Taken 09/08/20] lamotrigine 25 mg PO BID 09/08/20 [History Last Taken 09/08/20] lamotrigine 100 mg PO DAILY 09/08/20 [History Last Taken 09/08/20] norgestimate-ethinyl estradiol 1 tab PO DAILY 09/08/20 [History Last Taken 09/08/20] ziprasidone HCl 80 mg PO QHS 09/08/20 [History Last Taken 09/07/20] amlodipine 10 mg PO DAILY 11/27/20 [History Last Taken Unknown] Allergy/AdvReac Type Severity Reaction Status Date / Time Penicillins Allergy Unknown Verified 02/16/21 16:11 Family History (Updated 11/30/21 @ 17:[address] Jelly Savage MD) Mother Myocardial infarction Hypertension Father Myocardial infarction Hypertension Diabetes Surgical History (Updated 11/30/21 @ 17:[address] Jelly Savage MD) History of foot surgery S/P breast lumpectomy Social History (Updated 11/30/21 @ 17:[address] Jelly Savage MD) housing: other details: care home. Smoking Status: Never smoker alcohol intake: never substance use type: does not use ROS Review of Systems ROS Unobtainable: due to encephalopathy Vital Signs Vital Signs Vital Signs: 11/30/21 14:15 11/30/21 14:41 11/30/21 14:42 Temperature 98.8 F 98.8 F Temperature Source Axillary Axillary Pulse Rate 109 H 104 H Respiratory Rate 28 H 20 H Respiratory Effort Normal Non-Labored Respiratory Pattern Normal Blood Pressure 150/102 H 134/82 H Blood Pressure Mean 118 99 Pulse Ox 96 97 Oxygen Delivery Method Room Air Room Air 11/30/21 15:52 11/30/21 16:15 Temperature 98.7 F Temperature Source Temporal Pulse Rate 89 Respiratory Rate 15 Respiratory Effort Respiratory Pattern Blood Pressure 121/62 H Blood Pressure Mean 81 Pulse Ox 98 97 Oxygen Delivery Method Room Air Room Air Weight Weight: 120 lb Body Mass Index (BMI) 24.2 Physical Exam Narrative Physical Examination: General: Patient minimally awakens, not alert, not answering any orientation questions, seated in the ED bed, lethargic. Skin: Normal color, normal turgor, no icterus, no cyanosis except very staged ecchymoses to all the extremities. HEENT: AT/NC, EOM unable to be assessed as very lethargic, PERRLA, dry MM, no carotid bruits or JVD noted. Lungs: Diminished, greater bases, mildly increased respiratory rate but no distress evident, no rales, ronchi or wheezing. Heart: Mildly tachycardic with regular rhythm; no gallop, rub audible. Abdomen: Soft, no obvious grimacing with palpation, no obvious distention, distant hypoactive bowel sounds, no obvious HSM. Extremities: No cyanosis, clubbing, or edema. See skin. Neurological: Patient minimally awakens, not alert, not answering any orientation questions, seated in the ED bed, lethargic, cognitive function not baseline intact however patient does have underlying MRDD; pupils equally reactive to light and accommodation, cranial nerves unable to be assessed well given significant lethargy, moving extremities spontaneously but very minimally, strength severely globally decreased. Psychiatric: Affect appears flat, lethargic, no acute evidence of depressive or anxiety feelings. Results Lab / Micro Data Result Diagrams: 11/30/21 14:20 11/30/21 14:20 Labs: Laboratory Results - last 24 hr 11/30/21 14:20: WBC 15.0 H, RBC 3.55 L, Hgb 11.6 L, Hct 36.4 L, MCV 102.5 H, MCH 32.7 H, MCHC 31.9 L, RDW Std Deviation 55.2 H, RDW Coeff of Taylor 14.7 H, Plt Count 357, MPV 10.2, Immature Gran % (Auto) 1.800 H, Neut % (Auto) 80.8 H, Lymph % (Auto) 9.6 L, [place] % (Auto) 7.4, Eos % (Auto) 0.1, Baso % (Auto) 0.3, Absolute Neuts (auto) 12.1 H, Absolute Lymphs (auto) 1.44, Nucleated RBC % 0 11/30/21 14:20: PT 22.2 H, INR 2.0, APTT 41.4 H 11/30/21 14:20: Sodium 147 H, Potassium 4.6, Chloride 116 H, Carbon Dioxide 26.0, Anion Gap 5, BUN 55 H, Creatinine 1.69 H, Estim Creat Clear Calc 33.46, Est GFR (MDRD) Af Amer 41 L, Est GFR (MDRD) Non-Af 34 L, BUN/Creatinine Ratio 32.5 H, Glucose 85, Calcium 9.8, Total Bilirubin 0.50, AST 72 H, ALT 43, A lkaline Phosphatase 98, Total Protein 7.8, Albumin 1.6 L, Globulin 6.2 H, Albumin/Globulin Ratio 0.3 L 11/30/21 16:08: Lactic Acid 1.3 11/30/21 16:21: Urine Color Ayesha, Urine Clarity Sl. Cloudy, Urine pH 6.0, Ur Specific [place] 1.020, Urine Protein 30 H, Urine Glucose (UA) Normal, Urine Ketones 15 H, Urine Occult Blood 150 H, Urine Nitrite Positive H, Urine Bilirubin 1 H, Urine Urobilinogen 8 H, Ur Leukocyte Esterase 25 H, Urine RBC 0-5 SEEN, Urine WBC 10-25 SEEN, Ur Squamous Epith Cells 0 SEEN, Urine Bacteria 3+, Urine Mucus 0 SEEN Micro: Microbiology 11/30/21 16:10 Nasal Secretion SARS-CoV-2 Antigen (Rapid) - Final Radiology Impression Chest X-Ray 11/30/21 15:48 IMPRESSION: Question nodularity in the right lower lobe. This may be related to pneumonia Mass is not excluded. Recommend CT chest. Electronically Signed: Erick Mccarthy MD at 16:14 EST , Service support , Assessment & Plan Assessment/Plan (1) Acute encephalopathy: (2) UTI (urinary tract infection): QUALIFIERS: Urinary tract infection type: acute cystitis Hematuria presence: without hematuria Qualified Code(s): N30.00 - Acute cystitis without hematuria (3) FELISHA (acute kidney injury): PLAN: The patient is a 51 y/o F w/ PMHx: Dementia unclear type with unclear behavioral disturbance history, Anxiety and Depression/Bipolar disorder, Seizure disorder, HTN, GERD who presents to the [facility] ED on 11/30/21 with history of noted decline over the last year as patient transition from a different section of the senior care to her current; however, since diagnosis with COVID on 11/18/2021 patient has been significantly more weak, fatigued with notable malaise and lethargy more severe over the last 48 hours not drinking or eating much and difficult to arouse prompting eventual ED evaluation. #1. FTT Adult with recent Acute Viral Syndrome, COVID-19: Will admit to the [facility], given timeline patient is off COVID precautions, will maintain on oxygen with wean as tolerated to room air, PRN albuterol, HOB, IS parameters, to be cautious however we will still obtain sputum culture and urine antigens, will obtain D- dimer, CRP, CPK, Ferritin, LDH and BNP in case of trending needs, continue supportive care including q 2 hour turning including prone given no prone bed availability and judicious hydration. #2. Acute Urinary Tract Infection: UA upon ED evaluation remarkable, pending UCx, continue IVFs, monitor I/Os, continue IV Rocephin as patient per review of records has received cephalosporins prior w/ transition as able pending sensi tivities and speciation. Bld cx x 2 obtained in the ED. #3. Acute encephalopathy, multifactorial: Patient with recent diagnosis of COVID acute viral syndrome, worsening mental status since, ED evaluation with as noted likely acute urinary tract infection, will continue treatment as noted above #1 and #2, maintain on fall precautions, PT/OT/case management consultations for discharge planning. #4. Acute kidney injury: Secondary to likely recent acute presentation #1 complicated with #2. Admission BUN/Cr 55/1.69, prior baseline creatinine noted to be 0.7. Will judiciously hydrate, hold nephrotoxic medications if further worsens. #5. Elevated LFT: Admission total bilirubin 0.50, AST/LT 72/43, possibly associated with acute presentation #1, will continue to closely monitor given patient medications used, repeat CMP in a.m. #6. Elevated INR: Patient not on any anticoagulation, INR is 2.0, PT 22.2, PTT 41.4, previous testing had patient INR 1.0-1.2, unclear if related with acute presentation #1, will obtain repeat INR and CMP in AM. #7. Abnormal chest x-ray: Chest x-ray with questionable nodularity right lower lobe with inability to rule out mass, given renal function will obtain CT chest without contrast to be cautious. #8. New Onset Anemia, macrocytic: Admission hemoglobin 11.6, prior baseline appears primarily 13-14, MCV is elevated 102.5, will obtain vitamin B12 and f olic acid levels. #9. Anxiety and depression/bipolar disorder: We will continue patient home ziprasidone, escitalopram, lorazepam, Depakote, and BuSpar with hold parameters for sedate of regimen as needed. #10. Seizure disorder/epilepsy with underlying MRDD: We will continue patient home keppra, depakote as well as lamotrigine with levels requested as certainly could be contributing to encephalopathy. If not improving may need to consider EEG. #11. Hypertension: Continue home regimen including amlodipine, PRN hydralazine. #12. GERD: We will continue patient home PPI #13. DVT prophylaxis: SCDs, given INR 2.0, will hold on anticoagulation, await repeat AM INR as noted. #14. CODE status: Patient HCPOA is Mary Puga and living will is currently in place. Discussed CODE status at length including difference between FULL code, DNR-CCA and DNR-CC status. Following discussions about the differences in these status, requested DNR-CCA, no intubation. Advanced Care Planning Face to Face Time: 16 minutes. Charges/Coding Visit Charges Inpatient E&M: 35721 Init Hosp L3 Procedures Hospitalists Procedures: 11659 Advncd Care Plan 30 Min
--- NOTE | 2021-11-30 17:30 | CM.ED ---
SOCIAL WORK Referral Source: Dr. Goldsmith Reason for Consult: Discharge Planning Dr. Goldsmith reporting patient needing shelter placement per patient's guardian- Mary Puga [phone]. Call to patient's guardian/sister, . Per , patient declining at [facility] and is thankful patient is getting admitted. Mary carrion would like to see how she does while in the hospital and is open to shelter if needed/recommended. CM/SW to follow up. Plan: Admit Eizo Castillo MSW, FEED MIXER HELPER
[2021-11-30] MEDS: Ciprofloxacin 400 MG/200 ML BAG 200 MG IV (17:51)
[2021-11-30 18:13] LABS: BNP,B-Type NATRIURETIC PEPTIDE 178.5 pg/mL (0-100)
[2021-11-30 18:15] LABS: Ferritin 915 ng/mL (8-252); LDH 332 U/L (84-246)
[2021-11-30 18:35] LABS: D-Dimer Quantitative (DVT/PE) 1.33 FEU/ug/m (0.27-0.49)
[2021-11-30] MEDS: 0.9% Normal Saline 1,000 ML 100 ML IV (18:51)
--- NOTE | 2021-11-30 19:08 | VDLE_ITS ---
Reason For Study: elevated D-dimer RIGHT LEFT FV, POP V, T/P Trunk, PTV, Peroneal V, and CFV, FV, POP V, T/P Trunk, PTV, Peroneal V, GSV are compressible. and GSV are compressible. Unable to image CFV due to pt positioning. Procedure This is a venous duplex using B-mode, color flow and spectral Doppler. Exam performed portable in patient room. The exam was abbreviated due to the COVID 19 protocol. The exam was of fair technical quality due to Pt positionig. Difficult study due to pt positioning. Pt is MRDD and unable to follow comands. Pt is agitated. Limited veiws of veins. A preliminary report was called and/or faxed to diagnostics sales developer. VL/Venous Duplex US - Ray Extrem Interpretation Summary No evidence for acute deep venous thrombosis bilateral lower extremities with p atent and compressible bilateral great saphenous veins Unable to visualize the right common femoral vein Abbreviated COVID-19 protocol The examination was felt to be of fair technical quality difficulty to patient' s ability to comply and positioning difficulty. Ordering Physician: Jelly Savage Performed By: Luis Clark RVT
[2021-11-30 19:11] LABS: Valproic Acid (Depakene) Level 70 ug/mL (50-100)
--- NOTE | 2021-11-30 19:55 | CT_ITS ---
STUDY: CT Chest W/O Contrast Injection 11/30/2021 8:15 PM REASON FOR EXAM: Female, 51 years old. Lung nodule Individualized dose optimization techniques were used for this CT. TECHNIQUE: Transaxial imaging was performed withoutIV contrast material. COMPARISON: 09.24.14 FINDINGS: There are degenerative changes of the shoulders. There is no pneumothorax. There is a right pleural effusions. There is bilateral pneumonia. There are calcifications of the coronary arteries. Normal mediastinum. Normal hilar regions. Normal pulmonary arteries. There is atherosclerotic calcification of the aortic arch with tortuosity and elongation of the aortic arch and descending thoracic aorta. There are multi-level degenerative changes of the thoracic spine. There are no acute findings of the upper abdomen. CT/Chest without Contrast IMPRESSION: There is a right pleural effusions. There is bilateral pneumonia. Electronically Signed: Erick Mccarthy MD at 20:18 EST , Service support ,
--- NOTE | 2021-11-30 20:26 | NURSING ---
Contacted POA/Guardian to get jail phone number to verify medication list and medical history. Per guardian, patient has been walking less past 6 months and using a wheel chair more. Guardian also verified that she is normally verbal. Contacted detention at [phone]. They are unable to fax her records but a team primary care physician will bring them in tomorrow. The contact center assistant Susannah Martinez, nurse for [facility] does not have a working number.
[2021-12-01] VITALS (9 sets, daily range): BP systolic 95–149; BP diastolic 42–90; PULSE 81–110; RESP 16–20; TEMP 36.6–37; O2SAT 96–97
[2021-12-01] MEDS: 0.9% Saline Lock 10 ML Syringe IV (06:13)
[2021-12-01] MEDS: 0.9% Normal Saline 1,000 ML 100 ML IV ×2 (06:13→16:28)
--- NOTE | 2021-12-01 06:15 | PCS.PANDOC ---
PANDEMIC DOCUMENTATION INITIATED: Date: 07/06/2021 Time: 190
[2021-12-01 06:18] LABS: Absolute Lymphocyte Count 1.38 X10^3/uL (0.83-4.51); Absolute Neutrophil Count 11.2 X10^3/uL (2.0-7.7); Basophil# 0.08 X10^3/uL; Basophil% 0.6 % (0-1); Eosinophil# 0.03 X10^3/uL; Eosinophils% 0.2 % (0-5); Hematocrit 32.7 % (37-47); Hemoglobin 10.7 g/dL (12.0-15.0); Lymphocyte # 1.38 X10^3/ul (0.83-4.51); Lymphocyte % 9.8 % (19-41); Mean Corp Hgb Conc 32.7 g/dL (32-36); Mean Corpuscular Volume 100.9 fL (81-99); Mean Platelet Vol. 10.1 fl (6.2-12.0); Monocyte% 7.8 % (0-10); NRBC Flagged by Analyzer 0 % (0-5); Neutrophil # 11.18 X10^3/uL (2.7-7.7); Neutrophil % 79.6 % (47-70); Platelet Count 283 K/mm3 (150-450); RBC Distribution Width CV 14.5 % (11.6-14.6); RBC Distribution Width SD 53.4 fl (35.1-43.9); Red Blood Count 3.24 M/mm3 (4.2-5.4); White Blood Count 14.1 K/mm3 (4.4-11.0)
[2021-12-01 06:25] LABS: International Normalized Ratio 2.2; Prothrombin Time (Protime)PT. 23.9 SECONDS (11.7-14.9)
[2021-12-01 07:20] LABS: ALB/GLOB Ratio 0.2 RATIO (0.9-2.4); AST(SGOT) 61 U/L (15-37); Alanine Aminotransfer ALT/SGPT 34 U/L (13-56); Albumin, Serum 1.3 g/dL (3.2-5.0); Alkaline Phosphatase 111 U/L (45-117); Anion Gap 7 (5-15); BUN 37 mg/dL (7-18); BUN/Creat Ratio 39.9 RATIO (10-20); Calcium,Total 8.7 mg/dL (8.5-10.1); Chloride 118 mmol/L (98-107); Creatinine, Serum 0.93 mg/dL (0.55-1.02); EST Glomerular Filtration Rate 67 mL/min (>60); Est Glom Filt Rate - Afr Amer 82 mL/min (>60); Estimated Creatinine Clearance 64.12 ml/min; Globulin 5.5 g/dL (2.2-4.2); Glucose 38 mg/dL (74-106); Potassium 3.3 mmol/L (3.5-5.1); Protein, Total 6.8 g/dL (6.4-8.2); Sodium Level 147 mmol/L (136-145)
[2021-12-01] MEDS: Dextrose 50%-Water 25 GM/50 ML DISP.SYRIN IV (07:27)
--- NOTE | 2021-12-01 07:49 | NURSING ---
blood sugar recheck 165
[2021-12-01 08:00] LABS: Bedside Glucose 165 mg/dL (70-110)
[2021-12-01 08:15] LABS: Vitamin B12 1594 pg/mL (211-911)
[2021-12-01] MEDS: Ceftriaxone 1 GM/50 ML BAG IV (09:45)
--- NOTE | 2021-12-01 11:16 | CASEMGMT ---
Social Work SW called pt's sister/guardian Mary Puga in regard to pt, to ascertain pt's prior level of function and anticipated discharge plan. PCP: Dr. Heard Specialists: Dr Santiago, sister unsure of other specialists Insurance/prescription coverage: Medicare/Medicaid crossover Pharmacy: [facility] Living arrangements: Pt lives in a prison. Pt has developmental delays, anxiety, depression, bipolar, seizure disorder, and dementia. Guardian: Pt's sister, Mary Puga is pt's guardian, guardianship form is on file Other Contacts: manager lighting is Taisha Lozano, , pt's oil burner servicer and installer is Jim Carter, Prior level of function/DME: As per pt's sister, pt moved to a different prison in November of 2020. The prison she was in was changing hands from [place], so pt was moved to a [place] prison. Since then, pt has had a decline. As per sister, pt has lost 70 pounds. She is not getting up much, and in fact has stopped getting up at all in May or June. Pt uses a wheelchair and gets assist with all ADLs. Also, pt has not been talking. As per her sister, she was talking and used to call her sister on the phone . Over the last month has not been talking. states she sees a sharp decline in the last month. Plan: SNF SW spoke w/pt's sister at length in regard to discharge plan. She is in agreement w/pt going to a residential facility at discharge. She asked SW to email her a list for [facility], SW explained will do so. LUOANN emailed list to pt's sister. LOUANN then called the greenhouse florist, Taisha Lozano, to get some clarification on pt's medical status. As per Taisha, pt has not walked much since she has been in the prison in November. In the summer, she also states that pt has stopped getting up at all. She states pt has dementia and they think this decline has to do with this diagnosis. She states pt is now an assist of three. Additionally, she also states pt is not eating, and at this point only eats when given medications, just eating yogurt. LOUANN inquired if a peg tube has been discussed. She states it has however since pt can eat and is choosing not to do so, this idea has not been fully explored. She states that they did give pt an appetite stimulant and she was eating more for about a month in August, but then pt went back to not eating again. Taisha states at this point the prison does not feel they can appropriately care for pt. LOUANN explained pt's sister is on board w/pt going to a longterm. SW inquired about nursing homes they have worked w/in [place], she does not know. She states to call pt's oil burner servicer and installer. COVID, decline started before COVID. home health for PT, pt has refused SW called pt's oil burner servicer and installer, Jim Carter in regard to this pt. He did not really have any additional insight in regard to what is going on w/pt medically. He states met pt in July and SW inquired if he has any ideas in regard to nursing homes in [facility] that work well with patients who have developmental disabilities. He will let SW know. Plan continue to be residential facility, facility to be determined. BREA Fox
[2021-12-01] MEDS: Potassium Chloride Oral Tablet 20 MEQ 40 MEQ PO (11:57)
--- NOTE | 2021-12-01 12:26 | PCM.PN.HOSP ---
Subjective Subjective Patient seen and examined. Patient was alert but nonverbal. Unable to therefore do review of systems. He has remained hemodynamically stable and is on room air. Objective Data Objective Data Vital Signs: Vital Signs Temp Pulse Resp BP Pulse Ox 98.1 F 95 16 132/68 H 97 12/01/21 07:39 12/01/21 07:39 12/01/21 07:39 12/01/21 07:39 12/01/21 07:39 Oxygen Delivery Method Room Air Weight: 128 lb 8 oz Body Mass Index (BMI) 24.6 Intake & Output: Intake and Output for Last 24 Hours 11/29/21 11/30/21 12/01/21 23:59 23:59 23:59 Intake Total 1200 / 1200 1050 / 1050 Output Total 600 / 600 350 / 350 Balance 600 / 600 700 / 700 Lab / Micro Data Result Diagrams: 12/01/21 05:30 12/01/21 05:30 Labs: Laboratory Results - last 24 hr 11/30/21 14:20: WBC 15.0 H, RBC 3.55 L, Hgb 11.6 L, Hct 36.4 L, MCV 102.5 H, MCH 32.7 H, MCHC 31.9 L, RDW Std Deviation 55.2 H, RDW Coeff of Taylor 14.7 H, Plt Count 357, MPV 10.2, Immature Gran % (Auto) 1.800 H, Neut % (Auto) 80.8 H, Lymph % (Auto) 9.6 L, [place] % (Auto) 7.4, Eos % (Auto) 0.1, Baso % (Auto) 0.3, Absolute Neuts (auto) 12.1 H, Absolute Lymphs (auto) 1.44, Nucleated RBC % 0 11/30/21 14:20: PT 22.2 H, INR 2.0, APTT 41.4 H 11/30/21 14:20: Sodium 147 H, Potassium 4.6, Chloride 116 H, Carbon Dioxide 26.0, Anion Gap 5, BUN 55 H, Creatinine 1.69 H, Estim Creat Clear Calc 33.46, Est GFR (MDRD) Af Amer 41 L, Est GFR (MDRD) Non-Af 34 L, BUN/Creatinine Ratio 32.5 H, Glucose 85, Calcium 9.8, Total Bilirubin 0.50, AST 72 H, ALT 43, Alkaline Phosphatase 98, Total Protein 7.8, Albumin 1.6 L, Globulin 6.2 H, Albumin/Globulin Ratio 0.3 L 11/30/21 14:20: D-Dimer Quant (PE/DVT) 1.33 H* 11/30/21 14:20: Ferritin 915 H, Lactate Dehydrogenase 332 H, C-React Prot Ext Range 172.00 H 11/30/21 14:20: B-Natriuretic Peptide 178.5 H 11/30/21 16:08: Lactic Acid 1.3 11/30/21 16:21: Urine Color Ayesha, Urine Clarity Sl. Cloudy, Urine pH 6.0, Ur Specific [place] 1.020, Urine Protein 30 H, Urine Glucose (UA) Normal, Urine Ketones 15 H, Urine Occult Blood 150 H, Urine Nitrite Positive H, Urine Bilirubin 1 H, Urine Urobilinogen 8 H, Ur Leukocyte Esterase 25 H, Urine RBC 0-5 SEEN, Urine WBC 10-25 SEEN, Ur Squamous Epith Cells 0 SEEN, Urine Bacteria 3+, Urine Mucus 0 SEEN 11/30/21 18:30: Valproic Acid 70 12/01/21 05:30: WBC 14.1 H, RBC 3.24 L, Hgb 10.7 L, Hct 32.7 L, MCV 100.9 H, MCH 33.0 H, MCHC 32.7, RDW Std Deviation 53.4 H, RDW Coeff of Taylor 14.5, Plt Count 283, MPV 10.1, Immature Gran % (Auto) 2.000 H, Neut % (Auto) 79.6 H, Lymph % (Auto) 9.8 L, [place] % (Auto) 7.8, Eos % (Auto) 0.2, Baso % (Auto) 0.6, Absolute Neuts (auto) 11.2 H, Absolute Lymphs (auto) 1.38, Nucleated RBC % 0 12/01/21 05:30: PT 23.9 H, INR 2.2 12/01/21 05:30: Sodium 147 H, Potassium 3.3 L, Chloride 118 H, Carbon Dioxide 22.0, Anion Gap 7, BUN 37 H, Creatinine 0.93, Estim Creat Clear Calc 64.12, Est GFR (MDRD) Af Amer 82, Est GFR (MDRD) Non-Af 67, BUN/Creatinine Ratio 39.9 H, Glucose 38 L*, Calcium 8.7, Total Bilirubin 0.50, AST 61 H, ALT 34, Alkaline Phosphatase 111, Total Protein 6.8, Albumin 1.3 L, Globulin 5.5 H, Albumin/Globulin Ratio 0.2 L, Folate 21.80 12/01/21 05:30: Vitamin B12 1594 H 12/01/21 07:48: POC Glucose 165 H Micro: Microbiology 11/30/21 16:21 Urine Catheter - Catheter Urine Culture - Preliminary Mixed Gram Positive Organisms 11/30/21 16:10 Blood Culture (Wb) - Anticubital Left Blood Culture - Preliminary 11/30/21 14:20 Blood Culture (Wb) - Anticubital Left Bacteria Detection (PCR) - Final Staphylococcus aureus 11/30/21 14:20 Blood Culture (Wb) - Anticubital Left Blood Culture - Preliminary Staphylococcus aureus 11/30/21 16:21 Urine Catheter - Oates Legionella Antigen - Final 11/30/21 16:21 Urine Catheter - Oates Streptococcus pneumoniae Antigen (M - Final 11/30/21 16:10 Nasal Secretion SARS-CoV-2 Antigen (Rapid) - Final Radiography Diagnostic Testing: Radiology Impression Chest X-Ray 11/30/21 15:48 IMPRESSION: Question nodularity in the right lower lobe. This may be related to pneumonia Mass is not excluded. Recommend CT chest. Electronically Signed: Erick Mccarthy MD at 16:14 EST , Service support , Chest CT 11/30/21 19:55 IMPRESSION: There is a right pleural effusions. There is bilateral pneumonia. Electronically Signed: Erick Mccarthy MD at 20:18 EST , Service support , Physical Exam Const alert Constitutional Narrative: Nonverbal HEENT head/scalp atraumatic and moist oral mucous membranes Head and Scalp: normocephalic Eyes PERRL, EOMs intact bilaterally and conjunctivae normal Resp Resp Narrative: Mildly diminished breath sounds bibasilarly. No wheezes or crackles. On room air. Cardio regular rate, regular rhythm, S1 normal heart sound, S2 normal heart sound and no murmurs GI normal to inspection, nondistended, normoactive bowel sounds, soft to palpation, non-tender and non-distended Extremity normal to inspection, full ROM and no clubbing, cyanosis or edema Peripheral Pulses: Yes pulses 2+ throughout Skin no rashes or lesions noted Neuro moves all extremities Neuro Narrative: nonverbal Sensorium / Orientation: awake and alert Psych Psych Narrative: flat affect Assessment & Plan Assessment/Plan (1) FELISHA (acute kidney injury): (2) Acute encephalopathy: (3) UTI (urinary tract infection): QUALIFIERS: Urinary tract infection type: acute cystitis Hematuria presence: without hematuria Qualified Code(s): N30.00 - Acute cystitis without hematuria (4) COVID: PLAN: #Acute metabolic encephalopathy likely multifactorial, from covid and UTI. PT/OT on board. patient is alert, but nonverbal. fall precautions #UTI: urine culure pending. On IV rocephin. blood cultures pending. WBc has trended down to 14. #Recent COVID 19 infection out of precautions now. #Hypokalemia: Potassium is 3.3 today. Will replace and trend. #FELISHA: Resolved. Creatinine trended down to 0.93 from 1.69. #Hypoglycemia: Blood sugar today was 38 on BMP. Hydrate gently with IV D5W and trend. #hypernatremia: Na is 147. D5W should help bring down sodium. Will trend. #Hypertension: On amlodipine. IV hydralazine as needed #GERD: on PPI #Elevated INR:INR today is 2.2. Patient not on any anticoagulant. Will trend and assess liver enzymes #Anxiety and depression: on ziprasidone, excitalopram, lorazepam, depakote and buspar #Seizure disorder and MRDD: on keppra nad depakote as well as lamictal. DVT prophylaxis: not indicated as INR is 2.2. SCDs. Charges/Coding Visit Charges Inpatient E&M: 99420 [facility] Hosp L3
[2021-12-02] VITALS (11 sets, daily range): BP systolic 129–157; BP diastolic 64–82; PULSE 41–97; RESP 16–22; TEMP 36.1–36.6; O2SAT 94–100
[2021-12-02] MEDS: lamoTRIgine 25 MG Tablet PO ×3 (01:31→22:13)
[2021-12-02] MEDS: levETIRAcetam Oral Solution 500 MG/5 ML 2000 MG PO ×3 (01:31→20:47)
[2021-12-02] MEDS: Ziprasidone HCl 20 MG Capsule 100 MG PO ×2 (01:31→22:13)
[2021-12-02] MEDS: busPIRone 5 MG Tablet 20 MG PO ×3 (05:37→20:27)
[2021-12-02 06:27] LABS: Absolute Lymphocyte Count 1.46 X10^3/uL (0.83-4.51); Absolute Neutrophil Count 6.6 X10^3/uL (2.0-7.7); Basophil# 0.03 X10^3/uL; Basophil% 0.3 % (0-1); Eosinophil# 0.13 X10^3/uL; Eosinophils% 1.4 % (0-5); Hematocrit 28.1 % (37-47); Hemoglobin 9.3 g/dL (12.0-15.0); Lymphocyte # 1.46 X10^3/ul (0.83-4.51); Lymphocyte % 15.3 % (19-41); Mean Corp Hgb Conc 33.1 g/dL (32-36); Mean Corpuscular Hgb 32.4 pg (27.0-32.0); Mean Corpuscular Volume 97.9 fL (81-99); Monocyte# 0.86 X10^3/uL; NRBC Flagged by Analyzer 0 % (0-5); Neutrophil # 6.64 X10^3/uL (2.7-7.7); Neutrophil % 69.8 % (47-70); Platelet Count 220 K/mm3 (150-450); RBC Distribution Width CV 13.9 % (11.6-14.6); RBC Distribution Width SD 49.5 fl (35.1-43.9); Red Blood Count 2.87 M/mm3 (4.2-5.4); White Blood Count 9.5 K/mm3 (4.4-11.0)
[2021-12-02 07:14] LABS: Anion Gap 5 (5-15); BUN 22 mg/dL (7-18); BUN/Creat Ratio 34.1 RATIO (10-20); Calcium,Total 8.3 mg/dL (8.5-10.1); Chloride 113 mmol/L (98-107); Creatinine, Serum 0.64 mg/dL (0.55-1.02); EST Glomerular Filtration Rate 103 mL/min (>60); Est Glom Filt Rate - Afr Amer 124 mL/min (>60); Estimated Creatinine Clearance 94.15 ml/min; Glucose 82 mg/dL (74-106); Potassium 2.6 mmol/L (3.5-5.1); Sodium Level 143 mmol/L (136-145)
--- NOTE | 2021-12-02 07:45 | ECHOL_ITS ---
Reason For Study: STAPH BACTEREMIA Procedure This was a limited 2D transthoracic echocardiogram. Very limited study due to pt being uncooperative and refusing completion of exam. The study was technically difficult. Exam performed portable in patient room. Left Ventricle Normal LV size. The estimated ejection fraction is 55 %. diastolic function was not assessed. Right Ventricle Normal RV size. Normal systolic function. Atria Normal left atrium. Normal right atrium. Mitral Valve There is no mitral valve stenosis. No mitral valve insufficiency. Tricuspid Valve There is no tricuspid stenosis. could not assess for TR. Aortic Valve Trisinus/trileaflet aortic valve. There is no aortic stenosis. could not asess for AR. Pulmonic Valve The pulmonic valve is not well visualized. Great Vessels not assessed. Pericardium/Pleural No pericardial effusion. MMode/2D Measurements & Calculations LVIDd: 4.2 cm IVSd: 0.80 cm Aortic Valve Planimetry: 2.1 cm2 LVIDs: 2.8 cm LVPWd: 0.81 cm FS: 32.6 % ECHO/Echo, Limited Study Interpretation Summary Limited study as patient was uncooperative The estimated ejection fraction is 55 %. Ordering Physician: Lorena Kraus Referring Physician: BRIDGETTE GRACIA Performed By: Rosario Hernandez, RDGILDARDO
[2021-12-02 08:19] LABS: Magnesium 1.8 mg/dL (1.6-2.6)
[2021-12-02] MEDS: Ceftriaxone 1 GM/50 ML BAG IV (08:45)
[2021-12-02] MEDS: Divalproex Sodium 125 MG SPRINKLE 1250 MG PO ×2 (08:46→20:27)
[2021-12-02] MEDS: lamoTRIgine 100 MG Tablet PO ×2 (08:48→22:13)
[2021-12-02] MEDS: Ziprasidone HCl 20 MG Capsule 40 MG PO (08:50)
--- NOTE | 2021-12-02 10:03 | CASEMGMT ---
Addendum entered by Amber Olvera 12/02/21 16:30: Social Work SW called [facility] back, they have no beds available. SW called Amara at [facility], 2nd message left. SW called [facility], message left and referral faxed. SW emailed pt's sister to let her know where we are at with the referrals. SW will follow up tomorrow. BREA Fox Original Note: Social Work SW received an email from pt's sister listing the following as her first three choices for SNF: 1. [facility] 2. [facility] 3. [facility] SW called and left messages at [facility] and [facility], and faxed referrals both places. SW will continue to follow. BREA Fox
--- NOTE | 2021-12-02 10:04 | PHA.PHARE_ITS ---
Consult Pharmacy has been consulted to manage selected antiobiotic: Vancomycin Type of Consult: New start Labs: Sodium 143 mmol/L (136-145) 12/02/21 05:21 Potassium 2.6 mmol/L (3.5-5.1) L* 12/02/21 05:21 Chloride 113 mmol/L (98-107) H 12/02/21 05:21 Carbon Dioxide 25.0 mmol/L (21.0-32.0) 12/02/21 05:21 Anion Gap 5 (5-15) 12/02/21 05:21 BUN 22 mg/dL (7-18) H 12/02/21 05:21 Creatinine 0.64 mg/dL (0.55-1.02) 12/02/21 05:21 Est GFR (MDRD) Af Amer 124 mL/min (>60) 12/02/21 05:21 Est GFR (MDRD) Non-Af 103 mL/min (>60) 12/02/21 05:21 BUN/Creatinine Ratio 34.1 RATIO (10-20) H 12/02/21 05:21 Glucose 82 mg/dL (74-106) 12/02/21 05:21 Microbiology: Microbiology 11/30/21 16:21 Urine Catheter - Catheter Urine Culture - Preliminary Gram positive organism Gram negative nicolas Gram negative nicolas#2 11/30/21 14:20 Blood Culture (Wb) - Anticubital Left Bacteria Detection (PCR) - Final Staphylococcus aureus 11/30/21 14:20 Blood Culture (Wb) - Anticubital Left Blood Culture - Preliminary Staphylococcus aureus Alpha Hemolytic Streptococcus 11/30/21 16:10 Blood Culture (Wb) - Anticubital Left Blood Culture - Preliminary 11/30/21 16:21 Urine Catheter - Oates Legionella Antigen - Final 11/30/21 16:21 Urine Catheter - Oates Streptococcus pneumoniae Antigen (M - Final 11/30/21 16:10 Nasal Secretion SARS-CoV-2 Antigen (Rapid) - Final Weight used for dosin kg Estimated Creatinine Clearance: 78ml/min Goal Trough: 15-20 mcg/mL Pharmacy Plan for Drug Dosing: Give initial loading dose of 1500mg IV x1, then continue with 750mg IV q12h per [facility] vanc protocol. Will check a trough before the 4th total dose. Pharmacy Service will continue to monitor and adjust dosing as required. Follow-Up Labs: Trough Vancomycin Labs to be done on [date and time ordered]: 12/03/21 21:30
[2021-12-02] MEDS: Potassium Chloride 10mEq/100mL 10 MEQ/100 ML IV.SOLN. 80 MEQ IV BOLUS ×4 (11:42→16:02)
--- NOTE | 2021-12-02 12:47 | PN.HOSP_ITS ---
Subjective Subjective Patient seen and examined. She was more verbal today. She was working with speech therapy and screamed out that she wanted to be left alone. She says she was seeing pain but could not pinpoint why she was in pain. She denied any fever or chills, nausea or vomiting. Review of systems otherwise negative. Objective Data Objective Data Vital Signs: Vital Signs Temp Pulse Resp BP Pulse Ox 97.5 F L 81 18 129/64 H 100 12/02/21 09:11 12/02/21 11:00 12/02/21 09:11 12/02/21 09:11 12/02/21 09:11 Oxygen Delivery Method Room Air Weight: 127 lb 13.89 oz Body Mass Index (BMI) 24.6 Intake & Output: Intake and Output for Last 24 Hours 11/30/21 12/01/21 12/02/21 23:59 23:59 23:59 Intake Total 1200 / 1200 2050 / 2900 2830 / 2830 Output Total 600 / 600 350 / 750 900 / 900 Balance 600 / 600 1700 / 2150 1930 / 1930 Medical Nutrition Assessment Dietitian: Malnutrition Criteria Met Start: 12/01/21 16:15 Freq: Status: Active Protocol: Document 12/01/21 16:15 RMA (Rec: 12/01/21 16:18 RMA [id number]) Nutrition Malnutrition Evidence of Malnutrition Exists Yes Malnutrition (severe): Acute Illness/Injury,Chronic Evidenced By Suboptimal Energy Intake ( Severe),Weight Loss (Severe) Clinical Problem Chronic Disease or Condition Related Malnutrition Etiology Severe protein-calorie malnutrition in the context of acute on chronic disease related to inadequate oral intake/inadequate energy, swallowing difficulty Signs/Symptoms as evidenced by pureed diet, wt loss~18% x 10-12 months and PO meeting less than 50-75% estimated nutrition needs Status Active Problem Recommendation Dietitian Recommendations/Changes Will continue Regular diet with consistency as per [employer]. Will add 240ml ensure enlive w / breakfast and ensure pudding BID w/ lunch and dinner. Adjust ONS as needed to prevent further wt loss and optimize oral intake. TF support if pt deemed unsafe for oral diet and changed to NPO. Lab / Micro Data Result Diagrams: 12/02/21 05:21 12/02/21 05:21 Labs: Laboratory Results - last 24 hr 11/30/21 16:21: Urine Color Ayesha, Urine Clarity Sl. Cloudy, Urine pH 6.0, Ur Specific [place] 1.020, Urine Protein 30 H, Urine Glucose (UA) Normal, Urine Ketones 15 H, Urine Occult Blood 150 H, Urine Nitrite Positive H, Urine Bilirubin 1 H, Urine Urobilinogen 8 H, Ur Leukocyte Esterase 25 H, Urine RBC 0-5 SEEN, Urine WBC 10-25 SEEN, Ur Squamous Epith Cells 0 SEEN, Urine Bacteria 3+, Urine Mucus 0 SEEN 12/02/21 05:21: WBC 9.5, RBC 2.87 L, Hgb 9.3 L, Hct 28.1 L, MCV 97.9, MCH 32.4 H , MCHC 33.1, RDW Std Deviation 49.5 H, RDW Coeff of Taylor 13.9, Plt Count 220, MPV 10.0, Immature Gran % (Auto) 4.200 H, Neut % (Auto) 69.8, Lymph % (Auto) 15.3 L, [place] % (Auto) 9.0, Eos % (Auto) 1.4, Baso % (Auto) 0.3, Absolute Neuts (auto) 6.6, Absolute Lymphs (auto) 1.46, Nucleated RBC % 0 12/02/21 05:21: Sodium 143, Potassium 2.6 L*, Chloride 113 H, Carbon Dioxide 25.0, Anion Gap 5, BUN 22 H, Creatinine 0.64, Estim Creat Clear Calc 94.15, Est GFR (MDRD) Af Amer 124, Est GFR (MDRD) Non-Af 103, BUN/Creatinine Ratio 34.1 H, Glucose 82, Calcium 8.3 L 12/02/21 05:21: Magnesium 1.8 Micro: Microbiology 11/30/21 16:21 Urine Catheter - Catheter Urine Culture - Preliminary Staphylococcus species Gram negative nicolas Gram negative nicolas#2 11/30/21 14:20 Blood Culture (Wb) - Anticubital Left Bacteria Detection (PCR) - Final Staphylococcus aureus 11/30/21 14:20 Blood Culture (Wb) - Anticubital Left Blood Culture - Preliminary Staphylococcus aureus Alpha Hemolytic Streptococcus 11/30/21 16:10 Blood Culture (Wb) - Anticubital Left Blood Culture - Preliminary 11/30/21 16:21 Urine Catheter - Oates Legionella Antigen - Final 11/30/21 16:21 Urine Catheter - [place] Streptococcus pneumoniae Antigen (M - Final 11/30/21 16:10 Nasal Secretion SARS-CoV-2 Antigen (Rapid) - Final Radiography Diagnostic Testing: Radiology Impression Venous Doppler Study 11/30/21 19:08 Interpretation Summary No evidence for acute deep venous thrombosis bilateral lower extremities with patent and compressible bilateral great saphenous veins Unable to visualize the right common femoral vein Abbreviated COVID-19 protocol The examination was felt to be of fair technical quality difficulty to patient's ability to comply and positioning difficulty. Ordering Physician: Jelly Savage Performed By: Luis Clark RVT Physical Exam Const alert Constitutional Narrative: agitated Exam Limitations: altered mental status HEENT head/scalp atraumatic and moist oral mucous membranes Head and Scalp: normocephalic Eyes PERRL, EOMs intact bilaterally and conjunctivae normal Resp normal respiratory effort Resp Narrative: Mildly diminished breath sounds bibasilarly. No wheezes or crackles. On room air. Cardio regular rate, regular rhythm, S1 normal heart sound, S2 normal heart sound and no murmurs GI normal to inspection, nondistended, normoactive bowel sounds, soft to palpation, non-tender and non-distended Extremity normal to inspection, full ROM and no clubbing, cyanosis or edema Peripheral Pulses: Yes pulses 2+ throughout Skin no rashes or lesions noted Neuro moves all extremities Neuro Narrative: agitated Sensorium / Orientation: awake and alert Psych Psych Narrative: agitated Assessment & Plan Assessment/Plan (1) FELISHA (acute kidney injury): (2) Acute encephalopathy: (3) UTI (urinary tract infection): QUALIFIERS: Urinary tract infection type: acute cystitis Hematuria presence: without hematuria Qualified Code(s): N30.00 - Acute cystitis without hematuria (4) COVID: PLAN: #Acute metabolic encephalopathy * likely multifactorial, from covid and UTI. * PT/OT on board. * patient is alert, and agitated today. * fall precautions * #UTI: * urine culure pending. On IV rocephin. * blood cultures growing Staph aureus.. WBc has trended down to 14. * started on IV vancomycin; continue IV rocephin * ID consulted. 2D echo ordered * #Staph bacteremia * 'source is not clear. Blood cultures 2 out of 2 positive for staph aureus * started on IV vancomycin. 2D echo ordered. * ID consulted * repeat blood cultures ordered * #Hypokalemia: K today is 2.6. Will replace and trend. Mg is 1.6 #Recent COVID 19 infection * out of precautions now. * #FELISHA: Resolved. Creatinine trended down to 0.93 from 1.69. #Hypoglycemia: Blood sugar today was 38 on BMP. Hydrate gently with IV D5W and trend. #hypernatremia: resolved. Na is down to 143. #Hypertension: On amlodipine. IV hydralazine as needed #GERD: on PPI #Elevated INR:INR today is pending. #Anxiety and depression: on ziprasidone, excitalopram, lorazepam, depakote and buspar #Seizure disorder and MRDD: on keppra nad depakote as well as lamictal. DVT prophylaxis: not indicated due to elevated INR. SCDs. Charges/Coding Visit Charges Inpatient E&M: [id number] [facility] Hosp L3
--- NOTE | 2021-12-02 13:31 | NURSING ---
mg 1.8
[2021-12-02 13:39] LABS: International Normalized Ratio 2.5; Prothrombin Time (Protime)PT. 26.4 SECONDS (11.7-14.9)
--- NOTE | 2021-12-02 13:55 | CON.PCM.ID_ITS ---
Assessment & Plan Assessment/Plan (1) Pneumonia: (2) Acute alteration in mental status: (3) COVID: (4) Bacteremia: PLAN: mssa bacteremia per pcr. Ucx with GNR x2 and GPC. On vanc/ceftriaxone. Recovering from covid, tested (+) 11/11, now out of iso. Wbc improved. Minimal R sided effusion on CT images. Will check echo and repeat bcx. Will follow, thank you. HPI Consult Data Date of Consult: 12/02/21 HPI Narrative HPI Narrative: GISELLE YOUNG, is a 51 F who presented 11/30 with weakness, lethargy, not feeling well. Was covid (+) 11/11. Had been doing better, now with body aches, some cough. Found to have (+) bcxs, on vanc and ceftriaxone. Full ROS performed and neg except as noted above. [facility] Medical History Abnormality of gait Bipolar disorder Dementia Hypertension Major depression Mental retardation OCD (obsessive compulsive disorder) Polydipsia Premenstrual tension syndrome Seizures Home Medications buspirone 20 mg PO TID 08/27/14 [History Last Taken 09/08/20] escitalopram oxalate 10 mg PO DAILY 08/27/14 [History Last Taken 09/08/20] polyethylene glycol 3350 17 g PO QODAY 08/27/14 [History Last Taken 12/04/18 17 GM] lorazepam 1 mg PO DAILY@1200 04/16/17 [History Last Taken 09/08/20] divalproex 1,250 mg PO BID 04/20/18 [History Last Taken 09/08/20] esomeprazole magnesium [Nexium] 20 mg PO DAILY 04/20/18 [History Last Taken 09/08/20] levetiracetam 20 ml PO BID 04/20/18 [History Last Taken 09/08/20] oxybutynin chloride 5 mg PO BID 04/20/18 [History Last Taken 09/08/20] multivitamin with iron [Multivitamins with Iron] 1 ea PO DAILY 05/17/18 [History Last Taken 09/08/20] Cholecalciferol (Vitamin D3) [Vitamin D3] 25 mcg PO DAILY 09/08/20 [History Last Taken 09/08/20] Potassium Chloride 20 meq PO BID 09/08/20 [History Last Taken 09/08/20] Ziprasidone Hcl 20 mg PO QHS 09/08/20 [History Last Taken 09/07/20] calcium carbonate 500 mg PO DAILY@0800 09/08/20 [History Last Taken 09/08/20] electrolytes-dextrose 180 ml PO TID 09/08/20 [History Last Taken 09/08/20] lamotrigine 25 mg PO BID 09/08/20 [History Last Taken 09/08/20] lamotrigine 100 mg PO BID 09/08/20 [History Last Taken 09/08/20] norgestimate-ethinyl estradiol 1 tab PO DAILY 09/08/20 [History Last Taken 09/08/20] ziprasidone HCl 80 mg PO QHS 09/08/20 [History Last Taken 09/07/20] amlodipine 10 mg PO DAILY 11/27/20 [History Last Taken Unknown] polyethylene glycol 3350 [Miralax] 17 g PO DAILY 12/01/21 [History Last Taken Unknown] ziprasidone HCl 40 mg PO DAILY 12/01/21 [History Last Taken Unknown] escitalopram oxalate 5 mg PO/SL DAILY 12/02/21 [History Last Taken Unknown] megestrol 40 mg PO/SL DAILY 12/02/21 [History Last Taken Unknown] Allergy/AdvReac Type Severity Reaction Status Date / Time Penicillins Allergy Unknown Verified 02/16/21 16:11 Family History (Updated 11/30/21 @ 17:[address] Jelly Savage MD) Mother Myocardial infarction Hypertension Father Myocardial infarction Hypertension Diabetes Family History unable to obtain Surgical History (Updated 11/30/21 @ 17:[address] Jelly Savage MD) History of foot surgery S/P breast lumpectomy Surgical History unable to obtain Social History (Updated 11/30/21 @ 17:[address] Jelly Savage MD) housing: other details: [facility]. Smoking Status: Never smoker alcohol intake: never substance use type: does not use Physical Exam Const no apparent distress General Appearance: cooperative HEENT normocephalic and head/scalp atraumatic Eyes PERRL and EOMs intact bilaterally Neck supple and No nodes Resp clear to auscultation bilaterally Auscultation: diminished lung sounds Cardio regular rate and regular rhythm GI soft to palpation, non-tender and non-distended Extremity no clubbing, cyanosis or edema Skin no rashes or lesions noted Skin Narrative: no splinter hemorrhages on fingers Neuro CN's II-XII intact bilaterally Medical Records Data Medical Nutrition Assessment Dietitian: Malnutrition Criteria Met Start: 12/01/21 16:15 Freq: Status: Active Protocol: Document 12/01/21 16:15 RMA (Rec: 12/01/21 16:18 RMA [id number]) Nutrition Malnutrition Evidence of Malnutrition Exists Yes Malnutrition (severe): Acute Illness/Injury,Chronic Evidenced By Suboptimal Energy Intake ( Severe),Weight Loss (Severe) Clinical Problem Chronic Disease or Condition Related Malnutrition Etiology Severe protein-calorie malnutrition in the context of acute on chronic disease related to inadequate oral intake/inadequate energy, swallowing difficulty Signs/Symptoms as evidenced by pureed diet, wt loss~18% x 10-12 months and PO meeting less than 50-75% estimated nutrition needs Status Active Problem Recommendation Dietitian Recommendations/Changes Will continue Regular diet with consistency as per REFRIGERATING MACHINE OPERATOR. Will add 240ml ensure enlive w / breakfast and ensure pudding BID w/ lunch and dinner. Adjust ONS as needed to prevent further wt loss and optimize oral intake. TF support if pt deemed unsafe for oral diet and changed to NPO. Lab / Micro Data Result Diagrams: 12/02/21 05:21 12/02/21 05:21 Labs: Laboratory Results - last 24 hr 11/30/21 16:21: Urine Color Ayesha, Urine Clarity Sl. Cloudy, Urine pH 6.0, Ur Specific [place] 1.020, Urine Protein 30 H, Urine Glucose (UA) Normal, Urine Ketones 15 H, Urine Occult Blood 150 H, Urine Nitrite Positive H, Urine Bilirubin 1 H, Urine Urobilinogen 8 H, Ur Leukocyte Esterase 25 H, Urine RBC 0-5 SEEN, Urine WBC 10-25 SEEN, Ur Squamous Epith Cells 0 SEEN, Urine Bacteria 3+, Urine Mucus 0 SEEN 12/02/21 05:21: WBC 9.5, RBC 2.87 L, Hgb 9.3 L, Hct 28.1 L, MCV 97.9, MCH 32.4 H , MCHC 33.1, RDW Std Deviation 49.5 H, RDW Coeff of Taylor 13.9, Plt Count 220, MPV 10.0, Immature Gran % (Auto) 4.200 H, Neut % (Auto) 69.8, Lymph % (Auto) 15.3 L, [place] % (Auto) 9.0, Eos % (Auto) 1.4, Baso % (Auto) 0.3, Absolute Neuts (auto) 6.6, Absolute Lymphs (auto) 1.46, Nucleated RBC % 0 12/02/21 05:21: Sodium 143, Potassium 2.6 L*, Chloride 113 H, Carbon Dioxide 25.0, Anion Gap 5, BUN 22 H, Creatinine 0.64, Estim Creat Clear Calc 94.15, Est GFR (MDRD) Af Amer 124, Est GFR (MDRD) Non-Af 103, BUN/Creatinine Ratio 34.1 H, Glucose 82, Calcium 8.3 L 12/02/21 05:21: Magnesium 1.8 12/02/21 13:17: PT 26.4 H, INR 2.5 Micro: Microbiology 11/30/21 16:21 Urine Catheter - Catheter Urine Culture - Preliminary Staphylococcus species Gram negative nicolas Gram negative nicolas#2 11/30/21 14:20 Blood Culture (Wb) - Anticubital Left Bacteria Detection (PCR) - Final Staphylococcus aureus 11/30/21 14:20 Blood Culture (Wb) - Anticubital Left Blood Culture - Preliminary Staphylococcus aureus Alpha Hemolytic Streptococcus Radiology Impression Venous Doppler Study 11/30/21 19:08 Interpretation Summary No evidence for acute deep venous thrombosis bilateral lower extremities with patent and compressible bilateral great saphenous veins Unable to visualize the right common femoral vein Abbreviated COVID-19 protocol The examination was felt to be of fair technical quality difficulty to patient's ability to comply and positioning difficulty. Ordering Physician: Jelly Savage Performed By: Luis Clark RVT
[2021-12-02] MEDS: Oxybutynin 5 MG Tablet PO (22:13)
[2021-12-03] VITALS (12 sets, daily range): BP systolic 131–144; BP diastolic 65–98; PULSE 75–88; RESP 16–18; TEMP 36.3–36.8; O2SAT 95–100
[2021-12-03] MEDS: busPIRone 5 MG Tablet 20 MG PO ×3 (05:43→21:02)
[2021-12-03] MEDS: Ondansetron 4 MG/2 ML Vial IV (05:51)
[2021-12-03 06:31] LABS: Hematocrit 28.4 % (37-47); Hemoglobin 9.5 g/dL (12.0-15.0); Mean Corp Hgb Conc 33.5 g/dL (32-36); Mean Corpuscular Hgb 32.8 pg (27.0-32.0); Mean Corpuscular Volume 97.9 fL (81-99); Mean Platelet Vol. 10.2 fl (6.2-12.0); POSITIVE COUNT YES; POSITIVE MORPHOLOGY YES; Platelet Count 205 K/mm3 (150-450); White Blood Count 8.9 K/mm3 (4.4-11.0)
[2021-12-03 06:42] LABS: Differential Indicated MANUAL DIFF
[2021-12-03 07:00] LABS: Absolute Neutrophil Count 5.6 X10^3/uL (2.0-7.7); Anion Gap 7 (5-15); BUN 16 mg/dL (7-18); BUN/Creat Ratio 22.2 RATIO (10-20); Calcium,Total 8.3 mg/dL (8.5-10.1); Chloride 112 mmol/L (98-107); Creatinine, Serum 0.72 mg/dL (0.55-1.02); EST Glomerular Filtration Rate 90 mL/min (>60); Est Glom Filt Rate - Afr Amer 109 mL/min (>60); Glucose 87 mg/dL (74-106); Potassium 2.8 mmol/L (3.5-5.1); Sodium Level 144 mmol/L (136-145)
[2021-12-03 07:01] LABS: Absolute Lymphocyte Count 1.42 X10^3/uL (0.83-4.51); Eosinophil 1 % (0-5); Lymphocyte 16 % (19-41); Metamyelocyte 2 % (0-1); Monocyte 12 % (0-10); Myelocyte 5 % (0-0); NRBC Flagged by Analyzer 1 % (0-5); Neutrophil-Band 5 % (0-5); Neutrophil-Segmented 58 % (47-70); Promyelocyte 1 % (0-0); Total Cells Counted 100 (MANUAL DIFF)
[2021-12-03 07:02] LABS: Atypical Lymphocyte 1+ %; Platelet Estimate ADEQUATE (ADEQ); Red Cell Morphology NORM C+C NORMAL (NORM C&C)
[2021-12-03] MEDS: Divalproex Sodium 125 MG SPRINKLE 1250 MG PO ×2 (07:49→21:02)
[2021-12-03] MEDS: Ziprasidone HCl 20 MG Capsule 40 MG PO (07:50)
[2021-12-03] MEDS: lamoTRIgine 100 MG Tablet PO ×2 (07:51→21:05)
[2021-12-03] MEDS: lamoTRIgine 25 MG Tablet PO ×2 (07:51→21:05)
[2021-12-03] MEDS: Pantoprazole Sodium 20 MG Tablet PO (07:52)
[2021-12-03] MEDS: Escitalopram Oxalate 10 MG Tablet 15 MG PO (07:53)
[2021-12-03] MEDS: Cholecalciferol (VIT D3) 25 MCG TABLET (1,000 UNITS) PO (07:54)
[2021-12-03] MEDS: levETIRAcetam Oral Solution 500 MG/5 ML 2000 MG PO ×2 (07:54→21:03)
[2021-12-03] MEDS: Oxybutynin 5 MG Tablet PO ×2 (07:54→21:03)
[2021-12-03] MEDS: Megestrol 40 MG Tablet PO (07:54)
[2021-12-03] MEDS: Potassium Chloride 10mEq/100mL 10 MEQ/100 ML IV.SOLN. 100 MEQ IV BOLUS ×4 (09:34→13:33)
--- NOTE | 2021-12-03 10:05 | PCM.PN.ID ---
Physical Exam Narrative Feeling better, still some abd pain, no fever Const alert and no apparent distress General Appearance: cooperative Resp normal air movement and clear to auscultation bilaterally Cardio regular rate and regular rhythm GI soft to palpation, non-tender and non-distended Skin no rashes or lesions noted ID ID: Route of nutrition/ use of supplements: [] Nutritional Intake: [] IV Site: [] Oates Catheter: [] Assessment & Plan Assessment/Plan (1) Pneumonia: (2) Acute alteration in mental status: (3) COVID: (4) Bacteremia: PLAN: mssa bacteremia. Ucx with klebs, ecoli, and CoNS. On vanc/ceftriaxone, narrow to cefazolin. Recovering from covid, tested (+) 11/11, now out of iso. Wbc improved. Minimal R sided effusion on CT images. Echo pending. Will follow
[2021-12-03] MEDS: amLODIPine 10 MG Tablet PO (10:58)
--- NOTE | 2021-12-03 12:45 | CASEMGMT ---
Addendum entered by Amber Olvera 12/03/21 15:03: Social Work Jim Carter, pt's service unit operator called to check how pt is doing. SW gave him a brief update. SW inquired again w/Jim if he has any ideas in regard to nursing homes that work with patients who have developmental delays. He does not, stated that all the nursing homes have dementia units and they all could likely manage pt. SW will continue to follow, waiting for calls back from [facility] and [facility]. BREA Fox Original Note: Social Work SW spoke w/the [facility] yesterday, they are not taking any outside referrals. SW called [facility], they are not taking any admissions at this time, possibly next week. SW called pt's sister/POA, explained that unfortunately, none of the three facilities she chose in [place] are taking admissions at present. We reviewed other options, SW emailed her the list of nursing homes in [facility], complete with quality and resource use data. Pt's sister asked for referrals be sent to [facility] and [facility]. SW faxed referrals to both facilities. SW left a message at [facility], and spoke w/the nursing home assistant administrator at [facility] in regard to the referral. SW will continue to follow. BREA Fox
[2021-12-03] MEDS: LORazepam 1 MG Tablet PO (13:04)
[2021-12-03 13:07] LABS: Pathologist Review Reviewed
--- NOTE | 2021-12-03 13:53 | NURSING ---
concur with RECORD RETRIEVAL SPECIALIST
--- NOTE | 2021-12-03 15:04 | NURSING ---
cefazolin not here for pt administration
[2021-12-03] MEDS: Menthol/Lanolin/Calamine/Znox 113 GM Tube 1 APPLIC TOPICAL ×2 (15:11→22:32)
--- NOTE | 2021-12-03 15:27 | PN.HOSP_ITS ---
Subjective Subjective Patient seen and examined. She was alert today but will give single word answers to questions. She had no complaints. She denied being in pain. She denied any fever, chills, nausea vomiting or diarrhea. Review of symptoms otherwise negative. Per the gi tech, 2 attempts were made to do the 2D echo but patient did not tolerate. Objective Data Objective Data Vital Signs: Vital Signs Temp Pulse Resp BP Pulse Ox 98.0 F 86 18 144/65 H 99 12/03/21 15:00 12/03/21 15:00 12/03/21 15:00 12/03/21 15:00 12/03/21 15:00 Oxygen Delivery Method Room Air Weight: 123 lb 7.342 oz Body Mass Index (BMI) 24.6 Intake & Output: Intake and Output for Last 24 Hours 12/01/21 12/02/21 12/03/21 23:59 23:59 23:59 Intake Total 2050 / 2900 3831.00 / 3831.00 478.25 / 478.25 Output Total 350 / 750 2325 / 2325 600 / 600 Balance 1700 / 2150 1506.00 / 1506.00 -121.75 / -121.75 Medical Nutrition Assessment Dietitian: Malnutrition Criteria Met Start: 12/01/21 16:15 Freq: Status: Active Protocol: Document 12/01/21 16:15 RMA (Rec: 12/01/21 16:18 RMA [id number]) Nutrition Malnutrition Evidence of Malnutrition Exists Yes Malnutrition (severe): Acute Illness/Injury,Chronic Evidenced By Suboptimal Energy Intake ( Severe),Weight Loss (Severe) Clinical Problem Chronic Disease or Condition Related Malnutrition Etiology Severe protein-calorie malnutrition in the context of acute on chronic disease related to inadequate oral intake/inadequate energy, swallowing difficulty Signs/Symptoms as evidenced by pureed diet, wt loss~18% x 10-12 months and PO meeting less than 50-75% estimated nutrition needs Status Active Problem Recommendation Dietitian Recommendations/Changes Will continue Regular diet with consistency as per LINE INSTALLER. Will add 240ml ensure enlive w / breakfast and ensure pudding BID w/ lunch and dinner. Adjust ONS as needed to prevent further wt loss and optimize oral intake. TF support if pt deemed unsafe for oral diet and changed to NPO. Lab / Micro Data Result Diagrams: 12/03/21 05:30 12/03/21 05:30 Labs: Laboratory Results - last 24 hr 12/03/21 05:30: WBC 8.9, RBC 2.90 L, Hgb 9.5 L, Hct 28.4 L, MCV 97.9, MCH 32.8 H , MCHC 33.5, RDW Std Deviation 50.0 H, RDW Coeff of Taylor 14.0, Plt Count 205, MPV 10.2, Neut % (Auto) Not Reportable, Absolute Neuts (auto) 5.6, Absolute Lymphs (auto) 1.42, Total Counted 100, Neutrophils % (Manual) 58, Band Neutrophils % 5, Lymphocytes % (Manual) 16 L, Monocytes % (Manual) 12 H, Eosinophils % (Manual) 1, Metamyelocytes % 2 H, Myelocytes % 5 H, Promyelocytes % 1 H, Nucleated RBC % 1, Diff Path Review Reviewed, Atypical Lymphocytes 1+, Platelet Estimate ADEQUATE, RBC Morphology NORM C+C 12/03/21 05:30: Sodium 144, Potassium 2.8 L, Chloride 112 H, Carbon Dioxide 25.0, Anion Gap 7, BUN 16, Creatinine 0.72, Estim Creat Clear Calc 80.80, Est GFR (MDRD) Af Amer 109, Est GFR (MDRD) Non-Af 90, BUN/Creatinine Ratio 22.2 H, Glucose 87, Calcium 8.3 L Micro: Microbiology 11/30/21 16:21 Urine Catheter - Catheter Urine Culture - Final Staphylococcus simulans Klebsiella pneumoniae sp pneum Escherichia coli 11/30/21 16:10 Blood Culture (Wb) - Anticubital Left Blood Culture - Final Staphylococcus aureus Alpha Hemolytic Streptococcus 11/30/21 14:20 Blood Culture (Wb) - Anticubital Left Bacteria Detection (PCR) - Final Staphylococcus aureus 11/30/21 14:20 Blood Culture (Wb) - Anticubital Left Blood Culture - Final Streptococcus mitis/ oralis Staphylococcus aureus 11/30/21 16:21 Urine Catheter - Oates Legionella Antigen - Final 11/30/21 16:21 Urine Catheter - Oates Streptococcus pneumoniae Antigen (M - Final 11/30/21 16:10 Nasal Secretion SARS-CoV-2 Antigen (Rapid) - Final Radiography Diagnostic Testing: Radiology Impression Echocardiogram 12/02/21 07:45 Interpretation Summary Limited study as patient was uncooperative The estimated ejection fraction is 55 %. __ Ordering Physician: Lorena Kraus Referring Physician: BRIDGETTE GRACIA Performed By: Rosario Hernandez RDCS Physical Exam Const alert Exam Limitations: altered mental status HEENT head/scalp atraumatic and moist oral mucous membranes Head and Scalp: normocephalic Eyes PERRL, EOMs intact bilaterally and conjunctivae normal Resp Resp Narrative: Mildly diminished breath sounds bibasilarly. No wheezes or crackles. On room air. Cardio regular rate, regular rhythm, S1 normal heart sound, S2 normal heart sound and no murmurs GI normal to inspection, nondistended, normoactive bowel sounds, soft to palpation, non-tender and non-distended Extremity normal to inspection, full ROM and no clubbing, cyanosis or edema Skin no rashes or lesions noted Neuro moves all extremities Sensorium / Orientation: awake and alert Psych Mood & Affect: anxious Assessment & Plan Assessment/Plan (1) FELISHA (acute kidney injury): (2) Acute encephalopathy: (3) UTI (urinary tract infection): QUALIFIERS: Urinary tract infection type: acute cystitis Hematuria presence: without hematuria Qualified Code(s): N30.00 - Acute cystitis without hematuria (4) COVID: PLAN: #Acute metabolic encephalopathy * likely multifactorial, from covid and UTI. * PT/OT on board. * resolving. More alert and communicative today. * fall precautions * #UTI: * urine culture pending. On IV rocephin. * blood cultures growing Staph simulans, Klebsiella pneumoniaie and E. coli. . * ID on board. Antibiotics narrowed down from IV vancomycin and rocephin to IV cefazolin. * * #Staph bacteremia * 'source is not clear. Blood cultures 2 out of 2 positive for staph aureus * on IV cefazolin,. Patient could not really tolerate having the 2D echo done so she had a very limited exam which showed EF of 55% with normal left ventricular size. Diastolic function was not assessed. RV was normal size and normal systolic function * ID on board * repeat blood cultures pending * #Hypokalemia: K today is 2.8. Will replace and trend. Mg is 1.6 #Recent COVID 19 infection * out of precautions now. * resolved. On room air. #FELISHA: Resolved. Creatinine trended down to 0.93 from 1.69. #Hypoglycemia: resolved. #hypernatremia: resolved. Na is down to 143. #Hypertension: On amlodipine. IV hydralazine as needed #GERD: on PPI #Elevated INR IN was 2.5 yesterday. No evidence of bleeding. Will monitor. #Anxiety and depression: on ziprasidone, excitalopram, lorazepam, depakote and buspar #Seizure disorder and MRDD: on keppra nad depakote as well as lamictal. DVT prophylaxis: not indicated due to elevated INR. SCDs. Charges/Coding Visit Charges Inpatient E&M: 49361 Subs Hosp L2
--- NOTE | 2021-12-03 16:11 | CASEMGMT ---
Social Work SW received a call from [facility], they cannot take pt. SW emailed pt's sister to let her know. SW still waiting to hear from [facility]. BREA Fox
[2021-12-03] MEDS: Potassium Chloride Oral Tablet 10 MEQ 20 MEQ PO (17:53)
[2021-12-03] MEDS: Ziprasidone HCl 20 MG Capsule 100 MG PO (21:05)
[2021-12-04] VITALS (9 sets, daily range): BP systolic 125–203; BP diastolic 65–102; PULSE 78–106; RESP 15–20; TEMP 36.6–37.4; O2SAT 94–98
--- NOTE | 2021-12-04 05:42 | NURSING ---
no urine output since midnight. bladder scan =348 cc. purewick in proper placement, abd soft non distended. will continue to monitor.
[2021-12-04 06:01] LABS: Hematocrit 26.1 % (37-47); Hemoglobin 8.7 g/dL (12.0-15.0); Mean Corp Hgb Conc 33.3 g/dL (32-36); Mean Corpuscular Hgb 31.8 pg (27.0-32.0); Mean Corpuscular Volume 95.3 fL (81-99); Mean Platelet Vol. 9.1 fl (6.2-12.0); POSITIVE COUNT YES; POSITIVE MORPHOLOGY YES; Platelet Count 140 K/mm3 (150-450); RBC Distribution Width SD 48.3 fl (35.1-43.9); Red Blood Count 2.74 M/mm3 (4.2-5.4); White Blood Count 9.4 K/mm3 (4.4-11.0)
[2021-12-04 06:07] LABS: Differential Indicated MANUAL DIFF
[2021-12-04 06:25] LABS: International Normalized Ratio 1.2; Prothrombin Time (Protime)PT. 14.6 SECONDS (11.7-14.9)
[2021-12-04 06:31] LABS: Anion Gap 5 (5-15); BUN 10 mg/dL (7-18); BUN/Creat Ratio 18.2 RATIO (10-20); Calcium,Total 7.9 mg/dL (8.5-10.1); Chloride 109 mmol/L (98-107); Creatinine, Serum 0.55 mg/dL (0.55-1.02); EST Glomerular Filtration Rate 123 mL/min (>60); Est Glom Filt Rate - Afr Amer 149 mL/min (>60); Estimated Creatinine Clearance 108.23 ml/min; Glucose 95 mg/dL (74-106); Potassium 3.1 mmol/L (3.5-5.1); Sodium Level 141 mmol/L (136-145)
[2021-12-04 06:38] LABS: Absolute Neutrophil Count 5.3 X10^3/uL (2.0-7.7); Eosinophil 1 % (0-5); Lymphocyte 18 % (19-41); Monocyte 11 % (0-10); Myelocyte 12 % (0-0); Neutrophil-Band 3 % (0-5); Neutrophil-Segmented 53 % (47-70); Platelet Estimate SLT DEC (ADEQ); Promyelocyte 2 % (0-0); Total Cells Counted 100 (MANUAL DIFF)
[2021-12-04 06:39] LABS: Red Cell Morphology NORM C+C NORMAL (NORM C&C)
[2021-12-04 06:40] LABS: Atypical Lymphocyte 3+ %
[2021-12-04] MEDS: proCHLORPERazine 10 MG/2 ML Vial 5 MG IV (06:41)
[2021-12-04] MEDS: Menthol/Lanolin/Calamine/Znox 113 GM Tube 1 APPLIC TOPICAL ×3 (06:42→20:08)
[2021-12-04] MEDS: Potassium Chloride Oral Tablet 20 MEQ 60 MEQ PO (07:42)
[2021-12-04] MEDS: Acetaminophen 325 MG Tablet 650 MG PO (07:42)
[2021-12-04] MEDS: busPIRone 5 MG Tablet 20 MG PO ×3 (07:43→20:09)
[2021-12-04] MEDS: 0.9% Saline Lock 10 ML Syringe IV (07:43)
[2021-12-04] MEDS: hydrALAZINE 20 MG/ML Vial 10 MG IV (07:43)
[2021-12-04] MEDS: lamoTRIgine 25 MG Tablet PO ×2 (07:44→20:08)
[2021-12-04] MEDS: Ziprasidone HCl 20 MG Capsule 40 MG PO (07:44)
[2021-12-04] MEDS: Divalproex Sodium 125 MG SPRINKLE 1250 MG PO ×2 (07:45→20:07)
[2021-12-04] MEDS: lamoTRIgine 100 MG Tablet PO ×2 (07:45→20:08)
[2021-12-04] MEDS: Escitalopram Oxalate 10 MG Tablet 15 MG PO (07:46)
[2021-12-04] MEDS: amLODIPine 10 MG Tablet PO (07:46)
[2021-12-04] MEDS: Megestrol 40 MG Tablet PO (07:46)
[2021-12-04] MEDS: Pantoprazole Sodium 20 MG Tablet PO (07:47)
[2021-12-04] MEDS: Cholecalciferol (VIT D3) 25 MCG TABLET (1,000 UNITS) PO (07:47)
[2021-12-04] MEDS: Multivitamins,Ther W-Minerals Tablet 1 TABLET PO (07:47)
[2021-12-04] MEDS: levETIRAcetam Oral Solution 500 MG/5 ML 2000 MG PO ×2 (07:48→20:08)
[2021-12-04] MEDS: Oxybutynin 5 MG Tablet PO ×2 (07:48→20:06)
[2021-12-04] MEDS: Potassium Chloride Oral Tablet 10 MEQ 20 MEQ PO ×2 (08:11→18:03)
--- NOTE | 2021-12-04 09:46 | CASEMGMT ---
Social Work Note SW placed a call to Magy Wolff at [facility] and left message regarding referral. SW waiting for call back from SNF. Plan: SNF pending acceptance Sheila Washington CHEST PAINTING AND SEALING SUPERVISOR, FLAKER OPERATOR
[2021-12-04] MEDS: LORazepam 1 MG Tablet PO (11:04)
--- NOTE | 2021-12-04 11:25 | CASEMGMT ---
Addendum entered by Sheila Washington 12/04/21 11:40: LOUANN received call from Erin at [facility] stating they do have one bed available, willing to review referral. SW faxed referral to [facility]. Original Note: Social Work Note SW placed a call to [facility] and spoke with Lazarus in admissions. Lazarus states he never received referral yesterday. SW provided referral. Lazarus states referral can be faxed but they wouldn't be able to accept pt until Tuesday. LOUANN placed a call to pt's sister/Guardian . SW updated that [facility] is stating they will review referral but wouldn't be able to accept pt until Tuesday. LOUANN informed that pt is medically ready for discharge before Tuesday, asked for additional SNF choices. asked for additional SNF list to be emailed to her. LOUANN informed that this worker can email additional SNF list. (Per previous SW notes, LOUANN had emialed [facility] and [facility] SNF list). states that this worker can also send referrals to [facility] and [facility]. LOUANN emailed additional SNF list for [place], [facility], [facility], [facility], and another [facility] list. LOUANN placed a call to Erin at [facility], no beds available until next week. LOUANN placed a call to Maryjo at [facility] and left message regarding referral. SW faxed referral to [facility]. Plan: SNF pending acceptance Sheila Washington CHILD DEVELOPMENT CONSULTANT, LONG HAUL TRUCK DRIVER
--- NOTE | 2021-12-04 12:25 | CASEMGMT ---
Social Work Note SW received call from Susana at [facility] stating they can accept pt today. LOUANN still waiting for call back from [facility]. Sheila Washington SPEAR FISHER, CAPACITOR PACK PRESS OPERATOR
[2021-12-04 13:07] LABS: Pathologist Review Reviewed
--- NOTE | 2021-12-04 13:10 | PCM.PN.ID ---
Physical Exam Narrative Feeling ok, legs sore, no fever, sister at bedside Const no apparent distress General Appearance: cooperative Resp normal air movement and clear to auscultation bilaterally Cardio regular rate and regular rhythm GI soft to palpation, non-tender and non-distended Extremity Extremity Narrative: mild swelling BLE. Blister on R 5th finger Skin no rashes or lesions noted ID ID: Route of nutrition/ use of supplements: [] Nutritional Intake: [] IV Site: [] Oates Catheter: [] Assessment & Plan Assessment/Plan (1) Pneumonia: (2) Acute alteration in mental status: (3) COVID: (4) Bacteremia: PLAN: mssa bacteremia. Ucx with klebs, ecoli, and CoNS. On cefazolin. Recovering from covid, tested (+) 11/11, now out of iso. Wbc improved. Minimal R sided effusion on CT images. Echo limited but showed no veg. Ok for midline and discharge with 12 more days cefazolin. Will follow
[2021-12-04] MEDS: Cefazolin 2 GM in 0.9% Normal Saline 100 ML IV ×2 (13:43→20:29)
--- NOTE | 2021-12-04 14:08 | DS.PCM_ITS ---
Providers Date of Admission: 11/30/21 Primary Care Physician: Dr. Kym Heard MD Consultations 12/02/21 07:45 Consult: Infectious Disease Routine Consulting Provider: Jim Stout Reason for Consult: staph bacteremia EMERGENT Consult: No MD Notified: Yes Date Notified: 12/02/21 Time Notified: 07:45 Method of Notification: Text 12/04/21 11:30 Consult: Onc/Wound/pump servicer helper Routine Comment: Reason for Consult:: skin tear/abrasion to right elbow area Reason For Visit: COVID, UTI, FELISHA, ENCEPHALOPATHY Diagnosis Discharge Diagnosis (1) Pneumonia: Status: Acute Code(s): J18.9 - Pneumonia, unspecified organism (2) Acute alteration in mental status: Status: Acute Code(s): R41.82 - Altered mental status, unspecified (3) COVID: Status: Acute Code(s): U07.1 - COVID-19 (4) Bacteremia: Status: Acute Code(s): R78.81 - Bacteremia Medications at Discharge Home Medications buspirone 20 mg PO TID 08/27/14 escitalopram oxalate 10 mg PO DAILY 08/27/14 polyethylene glycol 3350 17 g PO QODAY 08/27/14 lorazepam 1 mg PO DAILY@1200 04/16/17 divalproex 1,250 mg PO BID 04/20/18 esomeprazole magnesium [Nexium] 20 mg PO DAILY 04/20/18 levetiracetam 20 ml PO BID 04/20/18 oxybutynin chloride 5 mg PO BID 04/20/18 multivitamin with iron [Daily Multiple Vitamins/Iron] 1 ea PO DAILY 05/17/18 Cholecalciferol (Vitamin D3) [Vitamin D3] 25 mcg PO DAILY 09/08/20 Potassium Chloride 20 meq PO BID 09/08/20 Ziprasidone Hcl 20 mg PO QHS 09/08/20 calcium carbonate 500 mg PO DAILY@0800 09/08/20 electrolytes-dextrose 180 ml PO TID 09/08/20 lamotrigine 25 mg PO BID 09/08/20 lamotrigine 100 mg PO BID 09/08/20 norgestimate-ethinyl estradiol 1 tab PO DAILY 09/08/20 ziprasidone HCl 80 mg PO QHS 09/08/20 amlodipine 10 mg PO DAILY 11/27/20 polyethylene glycol 3350 [Miralax] 17 g PO DAILY 12/01/21 ziprasidone HCl 40 mg PO DAILY 12/01/21 escitalopram oxalate 5 mg PO/SL DAILY 12/02/21 megestrol 40 mg PO/SL DAILY 12/02/21 cefazolin 2 g IV Q8H 12 Days #36 ea 12/04/21 Hospital Course Operations None Procedures 2-D Echocardiogram Summary of Care Provided Minutes Spent on Discharge: 45 Hospital Course: Patient is a 51-year-old female with a past medical history as outlined was admitted through the ED on 11/30/2021 for altered mental status. Patient had [facility] that she had noted to be declining since then with more weakness and lethargy as well as decreased appetite so she had been brought into the ED. Patient had been diagnosed with COVID on 11/18/2021 and had been asymptomatic not requiring any oxygen. Labs done at admission showed evidence of UTI with 3+ bacteria on ur inalysis with chest x-ray showing questionable nodularity in the right lower lobe. Blood cultures were ordered and she was started on IV fluids and started on ciprofloxacin for UTI as well as acute metabolic encephalopathy. Patient was noted to have FELISHA and elevated LFT with subsequently resolved. Her INR was also in therapeutic range though she was not on any anticoagulants. Antibiotics were subsequently switched to IV ceftriaxone. Blood cultures came back positive for MSSA so she was switched to IV vancomycin and subsequently transition to cefazolin. ID was consulted. Urine culture had Klebsiella and E. coli as well as coagulase-negative staph. She had a 2D echo which was very limited due to the patient not being cooperative. Echo showed EF of 55% but diastolic function could not be assessed. There is no evidence of valvular vegetation on the limited echo. Patient was noted to have a drop in her hemoglobin down to 8.7 from around 11 on admission. Stool for occult blood was ordered but was still pending at time of discharge. However patient had had bowel movements which were noted to be brown with no evidence of blood and all the other indices had also drop namely her WBC and platelets and so had drop in hemoglobin was thought to be likely due to hemodilution from IV fluid administration. She was therefore to be monitored in the long-term for any bleeding and for PCP to decide on need for stool for occult blood. She remained stable and was discharged back to her [facility] on 12/04/[facility]21. She was to continue on IV cefazolin per ID and had a mid line inserted, she was to be on IV cefazolin for 12 more days. She is to follow-up with her primary care doctor and infectious diseases. Patient was seen and examined prior to discharge. She was eating breakfast and stated that she wanted to go home. She had no active complaints and review of systems otherwise negative. Physical Exam Const alert General Appearance: cooperative, comfortable and lethargic Orientation / Consciousness: awake Exam Limitations: altered mental status HEENT normocephalic, head/scalp atraumatic and moist oral mucous membranes Eyes PERRL, EOMs intact bilaterally and conjunctivae normal Resp normal respiratory effort Resp Narrative: Mildly diminished breath sounds bibasilarly. No wheezes or crackles. On room air. Cardio regular rate, regular rhythm, S1 normal heart sound, S2 normal heart sound and no murmurs GI normal to inspection, nondistended, normoactive bowel sounds, soft to palpation, non-tender and non-distended Extremity normal to inspection, full ROM and no clubbing, cyanosis or edema Skin no rashes or lesions noted Neuro moves all extremities Sensorium / Orientation: awake and alert Medical Records Data Medical Nutrition Assessment Dietitian: Malnutrition Criteria Met Start: 12/01/21 16:15 Freq: Status: Active Protocol: Document 12/01/21 16:15 RMA (Rec: 12/01/21 16:18 RMA [id number]) Nutrition Malnutrition Evidence of Malnutrition Exists Yes Malnutrition (severe): Acute Illness/Injury,Chronic Evidenced By Suboptimal Energy Intake ( Severe),Weight Loss (Severe) Clinical Problem Chronic Disease or Condition Related Malnutrition Etiology Severe protein-calorie malnutrition in the context of acute on chronic disease related to inadequate oral intake/inadequate energy, swallowing difficulty Signs/Symptoms as evidenced by pureed diet, wt loss~18% x 10-12 months and PO meeting less than 50-75% estimated nutrition needs Status Active Problem Recommendation Dietitian Recommendations/Changes Will continue Regular diet with consistency as per [employer] ARCHITECT. Will add 240ml ensure enlive w / breakfast and ensure pudding BID w/ lunch and dinner. Adjust ONS as needed to prevent further wt loss and optimize oral intake. TF support if pt deemed unsafe for oral diet and changed to NPO. Weight / BMI Weight Weight: 126 lb 5.198 oz Body Mass Index (BMI) 24.6 ABG / Lab / Microbiology Data Result Diagrams: 12/04/21 05:25 12/04/21 05:25 Laboratory: Laboratory Results - last 24 hr 12/04/21 05:25: WBC 9.4, RBC 2.74 L, Hgb 8.7 L, Hct 26.1 L, MCV 95.3, MCH 31.8, MCHC 33.3, RDW Std Deviation 48.3 H, RDW Coeff of Taylor 14.0, Plt Count 140 L, MPV 9.1, Neut % (Auto) Not Reportable, Absolute Neuts (auto) 5.3, Absolute Lymphs (auto) 1.70, Total Counted 100, Neutrophils % (Manual) 53, Band Neutrophils % 3, Lymphocytes % (Manual) 18 L, Monocytes % (Manual) 11 H, Eosinophils % (Manual) 1, Myelocytes % 12 H, Promyelocytes % 2 H, Diff Path Review Reviewed, Atypical Lymphocytes 3+, Platelet Estimate SLT DEC, RBC Morphology NORM C+C 12/04/21 05:25: Sodium 141, Potassium 3.1 L, Chloride 109 H, Carbon Dioxide 27.0, Anion Gap 5, BUN 10, Creatinine 0.55, Estim Creat Clear Calc 108.23, Est GFR (MDRD) Af Amer 149, Est GFR (MDRD) Non-Af 123, BUN/Creatinine Ratio 18.2, Glucose 95, Calcium 7.9 L 12/04/21 05:25: PT 14.6, INR 1.2 Microbiology: Microbiology 12/02/21 13:17 Blood Culture (Wb) - Anticubital Right Blood Culture - Preliminary No growth in 48 hours. 11/30/21 16:21 Urine Catheter - Catheter Urine Culture - Final Staphylococcus simulans Klebsiella pneumoniae sp pneum Escherichia coli 11/30/21 16:10 Blood Culture (Wb) - Anticubital Left Blood Culture - Final Staphylococcus aureus Alpha Hemolytic Streptococcus 11/30/21 14:20 Blood Culture (Wb) - Anticubital Left Bacteria Detection (PCR) - Final Staphylococcus aureus 11/30/21 14:20 Blood Culture (Wb) - Anticubital Left Blood Culture - Final Streptococcus mitis/ oralis Staphylococcus aureus 11/30/21 16:21 Urine Catheter - Oates Legionella Antigen - Final 11/30/21 16:21 Urine Catheter - Oates Streptococcus pneumoniae Antigen (M - Final 11/30/21 16:10 Nasal Secretion SARS-CoV-2 Antigen (Rapid) - Final D/C Instructions Discharge Diet: Low fat / Low cholesterol Discharge Activity: Return to Normal Activity Weight Bearing Status: Weight bearing as tolerated Call your doctor if you observe: Fever of 101 or Higher, Shortness of breath, Dizziness, Swelling in the ankles, Chest pain and Uncontrolled pain Meaningful Use Info Meaningful Use Diagnoses (Choose all that apply): None applicable Discharge Plan Admission Admit Date/Time: 11/30/21 17:27 Primary Reason for Your Visit: MSSA bacteremia, UTI, acute metabolic encephalopathy Attending Provider: Lorena Kraus Primary Care Provider: Kym Heard Consulting Providers: Jim Stout Instructions Patient Instructions: ED Bacteremia, Suspected (Adult), ED CYSTITIS Female Adult Discharge Orders/Prescriptions Prescriptions: New cefazolin 1 gram recon soln 2 g IV Q8H 12 Days Qty: 36 RF: 0 Continued polyethylene glycol 3350 17 GM powder in packet 17 g PO QODAY RF: 0 buspirone 10 MG tablet 20 mg PO TID RF: 0 escitalopram oxalate 10 MG tablet 10 mg PO DAILY RF: 0 lorazepam 1 MG tablet 1 mg PO DAILY@1200 RF: 0 oxybutynin chloride 5 MG tablet 5 mg PO BID RF: 0 esomeprazole magnesium [Nexium] 20 MG capsule 20 mg PO DAILY RF: 0 levetiracetam 100 MG/ML solution 20 ml PO BID RF: 0 divalproex 125 MG capsule, delayed rel sprinkle 1,250 mg PO BID RF: 0 multivitamin with iron [Daily Multiple Vitamins/Iron] 1 EACH tablet 1 ea PO DAILY RF: 0 ziprasidone HCl 80 MG capsule 80 mg PO QHS RF: 0 norgestimate-ethinyl estradiol 1 EACH tablet 1 tab PO DAILY RF: 0 calcium carbonate 500 MG tablet 500 mg PO DAILY@0800 RF: 0 electrolytes-dextrose 1,000 ML solution 180 ml PO TID RF: 0 lamotrigine 100 MG tablet,disintegrating 100 mg PO BID RF: 0 lamotrigine 25 MG tablet,disintegrating 25 mg PO BID RF: 0 Cholecalciferol (Vitamin D3) [Vitamin D3] 25 MCG tablet 25 mcg PO DAILY RF: 0 Potassium Chloride 10 MEQ Capsule.Er 20 meq PO BID RF: 0 Ziprasidone Hcl 20 MG capsule 20 mg PO QHS RF: 0 amlodipine 10 MG tablet 10 mg PO DAILY RF: 0 polyethylene glycol 3350 [Miralax] 17 gram Powder In Packet 17 g PO DAILY RF: 0 ziprasidone HCl 40 mg Capsule 40 mg PO DAILY RF: 0 escitalopram oxalate 5 mg 5 mg PO/SL DAILY RF: 0 megestrol 40 mg tablet 40 mg PO/SL DAILY RF: 0 Referrals / Follow Up: Kym Heard MD [Primary Care Provider] - Within 2 Weeks Jim Stout MD [STAFF PHYSICIAN] - Within 2 Weeks Disposition Disposition (needs filled in before D/C Order can be placed): NonSkilled NH/Intermed Care Charges/Coding Visit Charges Inpatient E&M: [id number] [facility]
--- NOTE | 2021-12-04 14:17 | CASEMGMT ---
Social Work Note LOUANN received email from pt's sister/guardian stating she spoke with administration at [facility] who told her that they can accept pt today. LOUANN placed a call to [facility] and spoke with Jorge. Jorge confirms that [facility] can accept pt today. LOUANN informed Jorge that medically pt is ready for discharge. LOUANN reviewed chart. Pt will be on IV antibiotics and will need Mid Line placed before pt can discharge. LOUANN placed a call to pt's sister/guardian and updated her that [facility] confirmed they can accept pt. agreeable to [facility]. LOUANN placed a call to Maryjo at [facility] and left message to disregard referral. LOUANN placed a call to Erin at [facility] to disregard referral. LOUANN placed a call to Jorge at [facility] that script for IV antibiotics was faxed, pt will need Mid Line placed and then will discharge after Mid Line gets placed. LOUANN informed Jorge that this worker doesn't have a time yet for Mid Line, will keep [facility] updated. Jorge states understanding. Plan: [facility] skilled Sheila Washington SUPERVISOR PASTE MIXING, EMBROIDERY SUPERVISOR
--- NOTE | 2021-12-04 14:18 | PCM.TXEXTCAR ---
Diet 12/01/21 10:37 Diet: Regular - General Food consistency:: Pureed Liquid Consistency:: Regular/Thin Type of Dietary Supplement:: Ensure Pudding Diet Comments: TOTAL FEED/ DRINKS VIA STRAW; 240ml ES enlive w/ break & es pudd BID w/ L&D Routine Orders/Code Status Enema Type: Fleetz Enema Frequency: Daily PRN Suppository Type: Dulcolax 10mg Suppository Frequency: Daily PRN O2 Frequency: PRN Keep PO Greater than or Equal to (%): 90 Wound(s) right elbow: Wound Type: Abrasion right hip: Wound Type: Abrasion Right distal pinky finger: Wound Type: blister lt foot above 2/3 toes: Wound Type: Abrasion Therapies Weight Bearing: Weight bearing as tolerated Physical Therapy: Eval and Treat Occupational Therapy: Eval and Treat Problem/Diagnosis (1) Pneumonia: Status: Acute (2) Acute alteration in mental status: Status: Acute (3) COVID: Status: Acute (4) Bacteremia: Status: Acute Allergies/Procedures Done in Hospital Allergies Penicillins Allergy (Verified 02/16/21 16:11) Unknown Procedures: 2-D Echocardiogram Type of Care/Length of Stay Estimated LOS: Convalescent Care Less Than 30 days Type of Care Needed: Skilled Rehab Potential: Fair Prognosis: Fair Additional Orders/Day of Discharge Day of Discharge: 12/04/21 Dietary and Speech Recommendations Dietitian Recommendations/Changes: Will continue Regular diet with consistency as per [employer] TECHNICIAN. Will add 240ml ensure enlive w/ breakfast and ensure pudding BID w/ lunch and dinner. Adjust ONS as needed to prevent further wt loss and optimize oral intake. TF support if pt deemed unsafe for oral diet and changed to NPO. Discharge Plan Admission Admit Date/Time: 11/30/21 17:27 Primary Reason for Your Visit: MSSA bacteremia, UTI, acute metabolic encephalopathy Attending Provider: Lorena Kraus Primary Care Provider: Kym Heard Consulting Providers: Jim Stout Instructions Patient Instructions: ED Bacteremia, Suspected (Adult), ED CYSTITIS Female Adult Discharge Orders/Prescriptions Prescriptions: New cefazolin 1 gram recon soln 2 g IV Q8H 12 Days Qty: 36 RF: 0 Continued polyethylene glycol 3350 17 GM powder in packet 17 g PO QODAY RF: 0 buspirone 10 MG tablet 20 mg PO TID RF: 0 escitalopram oxalate 10 MG tablet 10 mg PO DAILY RF: 0 lorazepam 1 MG tablet 1 mg PO DAILY@1200 RF: 0 oxybutynin chloride 5 MG tablet 5 mg PO BID RF: 0 esomeprazole magnesium [Nexium] 20 MG capsule 20 mg PO DAILY RF: 0 levetiracetam 100 MG/ML solution 20 ml PO BID RF: 0 divalproex 125 MG capsule, delayed rel sprinkle 1,250 mg PO BID RF: 0 multivitamin with iron [Daily Multiple Vitamins/Iron] 1 EACH tablet 1 ea PO DAILY RF: 0 ziprasidone HCl 80 MG capsule 80 mg PO QHS RF: 0 norgestimate-ethinyl estradiol 1 EACH tablet 1 tab PO DAILY RF: 0 calcium carbonate 500 MG tablet 500 mg PO DAILY@0800 RF: 0 electrolytes-dextrose 1,000 ML solution 180 ml PO TID RF: 0 lamotrigine 100 MG tablet,disintegrating 100 mg PO BID RF: 0 lamotrigine 25 MG tablet,disintegrating 25 mg PO BID RF: 0 Cholecalciferol (Vitamin D3) [Vitamin D3] 25 MCG tablet 25 mcg PO DAILY RF: 0 Potassium Chloride 10 MEQ Capsule.Er 20 meq PO BID RF: 0 Ziprasidone Hcl 20 MG capsule 20 mg PO QHS RF: 0 amlodipine 10 MG tablet 10 mg PO DAILY RF: 0 polyethylene glycol 3350 [Miralax] 17 gram Powder In Packet 17 g PO DAILY RF: 0 ziprasidone HCl 40 mg Capsule 40 mg PO DAILY RF: 0 escitalopram oxalate 5 mg 5 mg PO/SL DAILY RF: 0 megestrol 40 mg tablet 40 mg PO/SL DAILY RF: 0 Referrals / Follow Up: Kym Heard MD [Primary Care Provider] - Within 2 Weeks Jim Stout MD [STAFF PHYSICIAN] - Within 2 Weeks Disposition Disposition (needs filled in before D/C Order can be placed): NonSkilled NH/Intermed Care
--- NOTE | 2021-12-04 16:27 | CASEMGMT ---
Social Work Note Pt is still waiting to get MidLine placed. LOUANN faxed completed discharge paperwork to [facility] including transfer to extended care facility, signed medication list, any scripts, COVID tool, and Convalescent 7000. Original in SNF folder and copy on pt's chart. LOUANN wrote on fax coversheet that pt is still awaiting Mid Line placement, pt will discharge after Mid Line is placed. LOUANN completed convalescent 7000 in [facility]. Original in SNF folder and copy on pt's chart. LOUANN placed Green sheet, transport forms, on pt's chart. LOUANN updated field secretary that once MidLine placement time is confirmed, transportation will need to be arranged and [facility]a will need to be updated on transportation time. Discharge paperwork has been completed and has been faxed. Plan: [facility] skilled when Mid Line is placed. Sheila Washington ROD FILLER, TELEMARKETER
--- NOTE | 2021-12-04 17:08 | NURSING ---
to call patient access coordinatorRN. Carpio will be coming ETA [id number]
[2021-12-04] MEDS: Ziprasidone HCl 20 MG Capsule 100 MG PO (20:07)
--- NOTE | 2021-12-05 00:16 | NURSING ---
Sister, , notified to discharge to [facility].
[2021-12-05 00:25] VITALS: BP 151/75; PULSE 86; RESP 15; TEMP 37.2; O2SAT 94
--- NOTE | 2021-12-05 00:33 | NURSING ---
NURSE REPORT CALLED TO SARAH GODWIN @ [facility]. SISTER PETER WAS CALLED BY CHARGE NURSE AND INFORMED THAT TRANSPORT [facility] WAS HERE TO TRANSPORT PT.
[2021-12-05 11:31] LABS: Lamotrigine (Lamictal) Level 9.2 ug/mL (2.0-20.0)
== END 2021-12-05 00:20 | disposition intermediate care facility (04) | DRG 689 ==
LOC: ED 17:40 → MS3 17:43
PROVIDERS: Admitting Provider Family Medicine; Emergency Provider Emergency Medicine; PCP Internal Medicine; Visit Provider Student in an Organized Health Care Education/Training Program
DX: N30.00 Acute cystitis without hematuria (principal); G93.41 Metabolic encephalopathy; E43 Unspecified severe protein-calorie malnutrition; J18.9 Pneumonia, unspecified organism; N17.9 Acute kidney failure, unspecified; F02.81 Dementia in other diseases classified elsewhere, unspecified severity, with behavioral disturbance; E87.0 Hyperosmolality and hypernatremia; R78.81 Bacteremia; G40.909 Epilepsy, unspecified, not intractable, without status epilepticus; G80.9 Cerebral palsy, unspecified; F03.90 Unspecified dementia, unspecified severity, without behavioral disturbance, psychotic disturbance, mood disturbance, and anxiety; I10 Essential (primary) hypertension; D53.9 Nutritional anemia, unspecified; K21.9 Gastro-esophageal reflux disease without esophagitis; E87.6 Hypokalemia; B95.61 Methicillin susceptible Staphylococcus aureus infection as the cause of diseases classified elsewhere; B96.1 Klebsiella pneumoniae [K. pneumoniae] as the cause of diseases classified elsewhere; B95.7 Other staphylococcus as the cause of diseases classified elsewhere; B96.20 Unspecified Escherichia coli [E. coli] as the cause of diseases classified elsewhere; F41.9 Anxiety disorder, unspecified; F32.9 Major depressive disorder, single episode, unspecified; E16.2 Hypoglycemia, unspecified; R62.7 Adult failure to thrive; Z86.16 Personal history of COVID-19; R79.1 Abnormal coagulation profile; Z66 Do not resuscitate; F79 Unspecified intellectual disabilities; Z79.899 Other long term (current) drug therapy; Z68.24 Body mass index [BMI] 24.0-24.9, adult
CPT/HCPCS: 36415; 51702; 71045; 71250; 80048; 80053; 80164; 81001; 82542; 82607; 82728; 82746; 82962; 83605; 83615; 83735; 83880; 85025; 85379; 85610; 85730; 86140; 87040; 87077; 87086; 87088; 87149; 87186; 87426; 87449; 92526; 92610; 93005; 93308; 93970; 97110; 97162; 97166; 97530; 97535; 97802; 99285; J7030; J7040; J7050; A4216; J0744; J2405